=== PATIENT | female | born 1935 | race Caucasian/White ===

== ENCOUNTER → 2019-01-19 | Day surgery (SDC) | payer MEDICARE, OTHER ==
[2019-01-18 12:08] LABS: BASOPHILS # (AUTO) 0.1 (0.0-0.1); BASOPHILS % 0.8 % (0.0-1.0); EOSINOPHILS # (AUTO) 0.2 (0.0-0.4); EOSINOPHILS % 1.5 % (0.0-6.0); HEMATOCRIT 37.2 % (34.2-44.1); HEMOGLOBIN 11.6 g/dL (12.0-16.0); LYMPHOCYTES % 19.2 % (18.0-39.1); MEAN CORPUSCULAR HEMOGLOBIN 28.7 pg (28-32); MEAN CORPUSCULAR HGB CONC 31.2 g/dL (31-35); MEAN CORPUSCULAR VOLUME 92.1 fL (81-99); MONOCYTES # (AUTO) 0.6 (0.2-0.8); MONOCYTES % 5.9 % (4.4-11.3); NEUTROPHILS # (AUTO) 7.4 (2.1-6.9); NEUTROPHILS % 71.9 % (38.7-80.0); PLATELET COUNT 193 x10e3/uL (140-360); RED BLOOD COUNT 4.04 x10e6/uL (3.6-5.1); RED CELL DISTRIBUTION WIDTH 13.2 % (11.7-14.4)
[2019-01-18 12:26] LABS: ANION GAP 10.8 mmol/L (8-16); CALCIUM 9.2 mg/dL (8.4-10.2); CREATININE, SERUM 0.97 mg/dL (0.57-1.11); POTASSIUM 3.8 mmol/L (3.5-5.1)
--- NOTE | 2019-01-18 12:41 | Diagnostic Imaging Report ---
EXAMINATION: CHEST 2 VIEWS INDICATION: None. COMPARISON: None FINDINGS: TUBES and LINES: None. LUNGS: No evidence of pneumonia or pulmonary edema. High density nodular opacities in the left lower medial hemithorax may represent calcified granulomas or overlying costochondral junctions. PLEURA: No pleural effusion or pneumothorax. HEART AND MEDIASTINUM: The cardiac silhouette is unremarkable. Prominent central pulmonary arteries. Atherosclerotic calcifications of the aortic arch. There is eventration of the right hemidiaphragm. BONES AND SOFT TISSUES: No acute osseous abnormality. UPPER ABDOMEN: No free air under the diaphragm. IMPRESSION: No acute radiographic abnormality. Prominent central pulmonary arteries, which may reflect pulmonary arterial hypertension. Signed by: Dr. Ciera Retana MD on 01/18/2019 12:38 PM
[~2019-01-19] MED LIST: ATORVASTATIN CA10 MG PO; BACITRACIN 50,000 UNIT VIAL ONE; BUPIVACAINE HCL 0.5% INJ 30 ML VIAL INJ ONE; CEFAZOLIN SOD 1 GM/NS 50ML 50 ML IV ONE; CLOPIDOGREL75 MG PO; DICLOFENAC SODI75 MG; FENTANYL CITRATE/PF 100MCG/2 ML INJ ONE; HYZAAR 100-12.1 EACH; LIDOCAINE HCL 2% LOCAL INJ 5 ML SDV VIAL INJ ONE; METOPROLOL; METOPROLOL SUCC50 MG PO; MUPIROCIN 2% OINT 22 GM TUBE ONE; NIFEDIPINE10 MG PO; ONDANSETRON HCL INJ 2MG/ML 2ML 2 MG/ML VIAL ONE; PANTOPRAZOLE SO20 MG; PANTOPRAZOLE SO20 MG PO; PHENYLEPHRINE HCL 1% 10 MG/ML VIAL ONE; PROPOFOL IV EMULSION 10 MG/ML 20 ML VIAL ONE; SEVOFLURANE INHAL SOLN 250 ML PEN BTL ONE; VENTOLIN HFA18 GM
--- OUTSIDE RECORDS SUMMARY | 2019-01-19 05:37 | XMS REPORT | Clinical Summary ---
Author Author [facility] [employer] [employer] Address Unknown Phone Unavailable Care Team Providers Care Drier Feeder Name Role Phone Anay Fox PCP Allergies Not on File Medications Not on file Active Problems Not on file Social History Date Tobacco Use Types Packs/Day Years Used Never Assessed Sex Assigned at Date Recorded Not on file Industry Job Start Date Occupation Not on file Not on file Not on file Travel End Travel History Travel Start No recent travel history available. Last Filed Vital Signs Not on file Plan of Treatment Health Maintenance Due Date Last Done Comments SHINGLES VACCINES (#1) 1986 65+ PNEUMOCOCCAL VACCINE 2001 (1 of 2 - PCV13) PNEUMOCOCCAL 2001 POLYSACCHARIDE VACCINE AGE 65 AND OVER INFLUENZA VACCINE 06/01/2018 Results Not on fileafter 01/18/2018 Insurance Payer Benefit Subscriber ID Type Phone Address Plan / Group [employer] UNITED xxxxxxxxx [employer] MEDICARE MEDICARE xxxxxxxxxx Medicare [place] PART A AND B Advance Directives Patient has advance care planning documents on file. For more information, juan e contact: Heriberto Lozada [address] [place] [address]
--- OUTSIDE RECORDS SUMMARY | 2019-01-19 05:39 | XMS REPORT | Summary of Care ---
Author Author [facility] Organization [facility] Address Unknown Phone Unavailable Encounter HQ Enriquer_darling(FIN) [id number] Date(s): 04/21/17 - 04/21/17 [facility] [address] [place] [address]- Discharge Disposition: Home or Self Care Attending Physician: Brea Doherty MD Referring Physician: Brea Doherty MD Vital Signs No data available for this section Problem List Condition Effective Dates Status Health Status Informant Abscess right middle Resolved finger(Confirmed) Acid Active reflux(Confirmed) Anxiety(Confirmed) Active Arthritis(Confirmed) Active GI Resolved bleeding(Confirmed) Hypertension(Confirm Active ed) Irregular heart Resolved beat(Confirmed) Knee Active replacement(Confirme d) Pneumonia(Confirmed) Resolved Raynaud Active disease(Confirmed) Rectal Active bleeding(Confirmed) Allergies, Adverse Reactions, Alerts Substance Reaction Severity Status sulfa drugs Active Medications No data available for this section Results No data available for this section Immunizations Given and Recorded Vaccine Date Status Refusal Reason Hx influenza vaccine-unspecified 08/01/13 Given Hx pneumococcal vaccine 12/29/11 Given Procedures Procedure Date Related Diagnosis Body Site Biopsy of lymph node Cataract surgery Hysterectomy Incision AND drainage Knee replacement Social History Social History Type Response Substance Abuse Use: None. Alcohol Never Smoking Status Never smoker; Type: Cigars; Exposure to Tobacco Smoke None; Cigarette Smoking Last 365 Days No; Reg Smoking Cessation Counseling No Assessment and Plan No data available for this section
--- OUTSIDE RECORDS SUMMARY | 2019-01-19 05:39 | XMS REPORT | Summary of Care ---
Author Organization Unknown Address Unknown Phone Unavailable Encounter HQ Enriquer_darling(FIN) [id number] Date(s): 09/13/14 - 09/13/14 [facility] [address] Discharge Disposition: Home Physician Attending: Rudolph Waddell MD Physician Admitting: Rudolph Waddell MD Physician_Referring: Rudolph Waddell MD Reason for Visit 792.1 Vital Signs 1 2 3 Most recent to oldest [Reference Range]: 152.4 cm (09/10/14 10:45 AM) Height 98.0 DegF (09/10/14 10:55 AM) Temperature Oral [96.4-99.1 DegF] 170 mmHg *HI* (09/13/14 9:05 AM) 158 mmHg *HI* (09/13/14 8:50 AM) 168 mmHg *HI* (09/13/14 8:35 AM) Systolic Blood Pressure [90-140 mmHg] 70 mmHg (09/13/14 9:05 AM) 76 mmHg (09/13/14 8:50 AM) 71 mmHg (09/13/14 8:35 AM) Diastolic Blood Pressure [60-90 mmHg] 18 BRMIN (09/13/14 9:05 AM) 18 BRMIN (09/13/14 8:50 AM) 17 BRMIN (09/13/14 8:35 AM) Respiratory Rate [14-20 BRMIN] 79 bpm (09/13/14 7:56 AM) 69 bpm (09/10/14 10:55 AM) Peripheral Pulse Rate [60-100 bpm] 75.909 kg (09/10/14 10:45 AM) Weight 32.68 m2 (09/10/14 10:45 AM) Body Mass Index Problem List Condition Effective Dates Status Health Status Informant Abscess right middle Resolved finger(Confirmed) Acid Active reflux(Confirmed) Anxiety(Confirmed) Active Arthritis(Confirmed) Active Cataract(Confirmed) Resolved GI Resolved bleeding(Confirmed) Hypertension(Confirm Active ed) Knee Active replacement(Confirme d) Pneumonia(Confirmed) Resolved Raynaud Active disease(Confirmed) Rectal Active bleeding(Confirmed) Allergies, Adverse Reactions, Alerts Substance Reaction Severity Status sulfa drugs Active Medications Lumigan 0.01% ophthalmic solution 1 drp, BOTH EYES, Bedtime, 0 Refill(s) Start Date: 09/10/14 Status: Ordered metoprolol 25 mg oral tablet, extended release 25 mg, PO, Daily, # 30 tab, 0 Refill(s) Start Date: 09/10/14 Stop Date: 10/10/14 Status: Ordered Protonix 40 mg oral enteric coated tablet 40 mg=1 tab, PO, Daily, # 30 tab, 0 Refill(s) Start Date: 09/10/14 Status: Ordered Sodium Chloride 0.9% (Bolus) IV 500 mL, Route: IV, ONCE, Dosing Weight 75.909 kg, Start date: 09/13/14 7:53:00, Stop date: 09/13/14 7:53:00, Bolus Start Date: 09/13/14 Stop Date: 09/13/14 Status: Discontinued Results ELECTROLYTES Most recent to 1 oldest [Reference Range]: Sodium Lvl [135-145 139 mEq/L mEq/L] (09/10/14 11:30 AM) Potassium Lvl 3.9 mEq/L [3.5-5.1 mEq/L] (09/10/14 11:30 AM) Chloride Lvl [95-109 105 mEq/L mEq/L] (09/10/14 11:30 AM) CO2 [24-32 mEq/L] 27 mEq/L (09/10/14 11:30 AM) AGAP [10.0-20.0 10.9 mEq/L mEq/L] (09/10/14 11:30 AM) HEMATOLOGY Most recent to 1 oldest [Reference Range]: Hgb [12.0-16.0 g/dL] 11.9 g/dL *LOW* (09/10/14 11:30 AM) Hct [36.0-48.0 %] 38.4 % (09/10/14 11:30 AM) Medications Administered During Your Visit No data available for this section Immunizations Vaccine Date Refusal Reason Hx influenza vaccine-unspecified 08/01/13 Hx pneumococcal vaccine 12/29/11 Procedures Procedure Type Body Site Date of Procedure Related Diagnosis Biopsy of lymph node Social History Social History Type Response Smoking Status Never smoker, Exposure to Tobacco Smoke None, Cigarette Smoking Last 365 Days No, Reg Smoking Cessation Counseling No
--- OUTSIDE RECORDS SUMMARY | 2019-01-19 05:39 | XMS REPORT | Summary of Care ---
Author Author [facility] Organization [facility] Address Unknown Phone Unavailable Encounter HQ Rebel(JEWELS) [id number] Date(s): 06/13/18 - 06/15/18 [facility] [address] [place] [address]- [phone] Encounter Diagnosis Weakness (Final) - Cerebral infarction, unspecified (Final) - 06/24/18 Essential (primary) hypertension (Final) - Gastro-esophageal reflux disease with esophagitis (Final) - Anxiety disorder, unspecified (Final) - Unspecified osteoarthritis, unspecified site (Final) - Raynaud's syndrome without gangrene (Final) - CR(E)ST syndrome (Final) - Hypothyroidism, unspecified (Final) - Hyperlipidemia, unspecified (Final) - Radiculopathy, lumbar region (Final) - Type 2 diabetes mellitus without complications (Final) - Coma scale, best motor response, obeys commands, at arrival to emergency departm ent (Final) - Coma scale, eyes open, spontaneous, at arrival to emergency department (Final) - Coma scale, best verbal response, oriented, at arrival to emergency department (Final) - NIHSS score 2 (Final) - Discharge Disposition: Home or Self Care Attending Physician: Cedric Agustin DO Admitting Physician: Cedric Agustin DO Vital Signs 1 2 3 Most recent to oldest [Reference Range]: 152.4 cm (06/13/18 11:59 PM) 152.4 cm (06/13/18 7:15 PM) Height 97.8 DegF (06/15/18 12:00 PM) 97.6 DegF (06/15/18 7:30 AM) 97.7 DegF (06/15/18 4:00 AM) Temperature Oral [96.4-99.1 DegF] 161/84 mmHg *HI* (06/15/18 12:00 PM) 159/77 mmHg *HI* (06/15/18 7:30 AM) 158/76 mmHg *HI* (06/15/18 4:00 AM) Blood Pressure [90-140/60-90 mmHg] 17 BRMIN (06/15/18 7:30 AM) 17 BRMIN (06/15/18 4:00 AM) 17 BRMIN (06/15/18 12:00 AM) Respiratory Rate [14-20 BRMIN] 67 bpm (06/15/18 12:00 PM) 59 bpm *LOW* (06/15/18 7:30 AM) 67 bpm (06/15/18 4:00 AM) Peripheral Pulse Rate [60-100 bpm] 69.091 kg (06/13/18 11:59 PM) 69.091 kg (06/13/18 7:15 PM) Weight 29.75 m2 (06/13/18 11:59 PM) 29.75 m2 (06/13/18 7:15 PM) Body Mass Index Problem List Condition Effective Dates Status Health Status Informant Abscess right middle Resolved finger(Confirmed) Acid Active reflux(Confirmed) Anxiety(Confirmed) Active Arthritis(Confirmed) Active GI Resolved bleeding(Confirmed) Hypertension(Confirm Active ed) Irregular heart Resolved beat(Confirmed) Knee Active replacement(Confirme d) Pneumonia(Confirmed) Resolved Raynaud Active disease(Confirmed) Rectal Active bleeding(Confirmed) Allergies, Adverse Reactions, Alerts Substance Reaction Severity Status sulfa drugs Active Medications acetaminophen 650 mg, 2 tab, Route: PO, Drug form: TAB, Q4H, Dosing Weight 69.091, kg, PRN Mellissa n 1-3/Temp > 100.4 F, Start date: 06/13/18 22:57:00 CDT, Duration: 30 day, Stop date: 07/13/18 22:56:00 CDT Notes: Do not exceed 4 gm/day. (Same as: Tylenol) Start Date: 06/13/18 Stop Date: 06/15/18 Status: Discontinued Arthrotec 75 mg-200 mcg oral tablet 1 tab, Route: PO, Drug Form: TAB, Dosing Weight 69.091, kg, Bedtime, Start date: 06/14/18 21:00:00 CDT, Duration: 30 day, Stop date: 07/13/18 21:00:00 CDT Start Date: 06/14/18 Stop Date: 06/14/18 Status: Deleted aspirin 325 mg, 1 tab, Route: PO, Drug form: TAB, ONCE, Dosing Weight 69.091, kg, Priori ty: STAT, Start date: 06/13/18 21:36:00 CDT, Stop date: 06/13/18 21:36:00 CDT Notes: Take with food. Start Date: 06/13/18 Stop Date: 06/13/18 Status: Completed aspirin 81 mg, 1 tab, Route: PO, Drug form: ECTAB, Daily, Dosing Weight 69.091, kg, Star t date: 06/14/18 9:00:00 CDT, Duration: 30 day, Stop date: 07/13/18 9:00:00 CDT Notes: Do not crush or chew.(Same As: Ecotrin) Start Date: 06/14/18 Stop Date: 06/15/18 Status: Discontinued aspirin 81 mg tablet, enteric coated 81 mg=1 tab, PO, Daily, # 30 tab, 0 Refill(s), Pharmacy: [facility] [id number] Start Date: 06/14/18 Status: Ordered clobetasol topical 0.05% cream 1 appl, TOP, BID, # 15 gm, 0 Refill(s) Start Date: 06/14/18 Stop Date: 06/28/18 Status: Ordered diclofenac 75 mg, PO, 0 Refill(s) Start Date: 06/14/18 Status: Ordered diclofenac sodium extended release 75 mg, 1 tab, Route: PO, Drug form: ECTAB, Bedtime, Start date: 06/14/18 21:00:0 0 CDT, Duration: 30 day, Stop date: 07/13/18 21:00:00 CDT Notes: Do Not Crush or Chew. (Same as: Voltaren) Start Date: 06/14/18 Stop Date: 06/15/18 Status: Discontinued hydrochlorothiazide 12.5 mg, 1 tab, Route: PO, Drug form: TAB, Bedtime, Start date: 06/14/18 21:00:0 0 CDT, Duration: 30 day, Stop date: 07/13/18 21:00:00 CDT Notes: (Same as: Hydrodiuril). Give with food. Start Date: 06/14/18 Stop Date: 06/15/18 Status: Discontinued hydrochlorothiazide-losartan 12.5 mg-100 mg oral tablet 1 tab, Route: PO, Drug Form: TAB, Dosing Weight 69.091, kg, Bedtime, Start date: 06/14/18 21:00:00 CDT, Duration: 30 day, Stop date: 07/13/18 21:00:00 CDT Start Date: 06/14/18 Stop Date: 06/14/18 Status: Deleted Levothroid 75 microgram, 1 tab, Route: PO, Drug form: TAB, Daily, Dosing Weight 69.091, kg, Start date: 06/15/18 6:30:00 CDT, Duration: 30 day, Stop date: 07/14/18 6:30:00 CDT Notes: Take 1 hour before or 2 hours after meal; Enteral feeds may interefere wi th the absorption of this medication. (Same as:Synthroid, Levothroid) Start Date: 06/15/18 Stop Date: 06/15/18 Status: Discontinued Levothroid 75 mcg (0.075 mg) oral tablet 75 microgram=1 tab, PO, Daily, # 90 tab, 0 Refill(s) Start Date: 06/14/18 Status: Ordered Lipitor 10 mg oral tablet 10 mg=1 tab, PO, Bedtime, # 30 tab, 0 Refill(s), Pharmacy: [facility] [id number] Start Date: 06/14/18 Status: Ordered losartan 100 mg, 2 tab, Route: PO, Drug form: TAB, Bedtime, Start date: 06/14/18 21:00:00 CDT, Duration: 30 day, Stop date: 07/13/18 21:00:00 CDT Notes: (Same as: Cozaar) Start Date: 06/14/18 Stop Date: 06/15/18 Status: Discontinued metFORMIN 500 mg oral tablet, extended release 500 mg=1 tab, PO, Daily, 0 Refill(s) Start Date: 06/14/18 Status: Ordered metFORMIN 500 mg oral tablet, extended release 500 mg, 1 tab, Route: PO, Drug form: ERTAB, Daily, Dosing Weight 69.091, kg, Sta rt date: 06/15/18 9:00:00 CDT, Duration: 30 day, Stop date: 07/14/18 9:00:00 CDT Notes: (Same as: Glucophage XR)"Do Not Crush" Start Date: 06/15/18 Stop Date: 06/15/18 Status: Discontinued misoprostol 200 microgram, 2 tab, Route: PO, Drug form: TAB, Bedtime, Start date: 06/14/18 2 1:00:00 CDT, Duration: 30 day, Stop date: 07/13/18 21:00:00 CDT Notes: (Same as:Cytotec) Take with food Start Date: 06/14/18 Stop Date: 06/15/18 Status: Discontinued nystatin 500,000 unit, Route: TOP, TID, Dosing Weight 69.091, kg, PRN Rash, Start date: 0 06/14/18 9:49:00 CDT, Duration: 30 day, Stop date: 07/14/18 9:48:00 CDT Start Date: 06/14/18 Stop Date: 06/14/18 Status: Deleted nystatin topical 100,000 units/g cream 1 appl, Route: TOP, TID, Drug form: CRM, PRN Rash, Start date: 06/14/18 10:08:00 CDT, Duration: 30 day, Stop date: 07/14/18 10:07:00 CDT Notes: (Same as:Mycostatin, Nilstat) For external use only. Start Date: 06/14/18 Stop Date: 06/15/18 Status: Discontinued Protonix 40 mg, 1 tab, Route: PO, Drug form: ECTAB, Daily, Dosing Weight 69.091, kg, Star t date: 06/15/18 9:00:00 CDT, Duration: 30 day, Stop date: 07/14/18 9:00:00 CDT Notes: Tablet should not be chewed or crushed.(Same as: Protonix) Start Date: 06/15/18 Stop Date: 06/15/18 Status: Discontinued Saline Flush 0.9% 10 mL, Route: IVP, Drug Form: INJ, Dosing Weight 71.818, kg, PRN, PRN Line Flush , Start date: 06/13/18 19:18:00 CDT, Duration: 30 day, Stop date: 07/13/18 19:17 :00 CDT Notes: (Same as: BD Posiflush) Start Date: 06/13/18 Stop Date: 06/14/18 Status: Discontinued Toprol-XL 25 mg oral tablet, extended release 25 mg, 1 tab, Route: PO, Drug form: ERTAB, Daily, Start date: 06/15/18 9:00:00 C DT, Duration: 30 day, Stop date: 07/14/18 9:00:00 CDT Notes: (Same as: Toprol XL) Do Not Crush Start Date: 06/15/18 Stop Date: 06/15/18 Status: Discontinued tramadol 50 mg oral tablet 50 mg, 1 tab, Route: PO, Drug form: TAB, Q4H, Dosing Weight 69.091, kg, PRN Pain Score 1-5, Start date: 06/14/18 9:49:00 CDT, Duration: 30 day, Stop date: 07/14 9:48:00 CDT Notes: Not to exceed 400mg/day. (Same As: Ultram) Start Date: 06/14/18 Stop Date: 06/15/18 Status: Discontinued Results ELECTROLYTES Most recent to 1 2 oldest [Reference Range]: Sodium Lvl [135-145 142 mEq/L 142 mEq/L mEq/L] (06/14/18 3:01 AM) (06/13/18 8:04 PM) Potassium Lvl 3.1 mEq/L 3.3 mEq/L [3.5-5.1 mEq/L] *LOW* *LOW* (06/14/18 3:01 AM) (06/13/18 8:04 PM) Chloride Lvl [95-109 107 mEq/L 107 mEq/L mEq/L] (06/14/18 3:01 AM) (06/13/18 8:04 PM) CO2 [24-32 mEq/L] 26 mEq/L 28 mEq/L (06/14/18 3:01 AM) (06/13/18 8:04 PM) AGAP [10.0-20.0 12.1 mEq/L 10.3 mEq/L mEq/L] (06/14/18 3:01 AM) (06/13/18 8:04 PM) CHEM PANEL Most recent to 1 2 oldest [Reference Range]: Creatinine Lvl 0.83 mg/dL 1.07 mg/dL [0.50-1.40 mg/dL] (06/14/18 3:01 AM) (06/13/18 8:04 PM) eGFR 66 mL/min/1.73m2 1 49 mL/min/1.73m2 2 *NA* *NA* (06/14/18 3:01 AM) (06/13/18 8:04 PM) BUN [7-22 mg/dL] 16 mg/dL 16 mg/dL (06/14/18 3:01 AM) (06/13/18 8:04 PM) B/C Ratio [6-25] 15 (06/13/18 8:04 PM) Glucose Lvl [70-99 93 mg/dL 101 mg/dL mg/dL] (06/14/18 3:01 AM) *HI* (06/13/18 8:04 PM) Total Protein 6.8 g/dL [6.4-8.4 g/dL] (06/13/18 8:04 PM) Albumin Lvl [3.5-5.0 3.3 g/dL g/dL] *LOW* (06/13/18 8:04 PM) Globulin [2.7-4.2 3.5 g/dL g/dL] (06/13/18 8:04 PM) A/G Ratio [0.7-1.6] 0.9 (06/13/18 8:04 PM) Calcium Lvl 8.4 mg/dL 8.8 mg/dL [8.5-10.5 mg/dL] *LOW* (06/13/18 8:04 PM) (06/14/18 3:01 AM) ALT [0-65 unit/L] 28 unit/L (06/13/18 8:04 PM) AST [0-37 unit/L] 20 unit/L (06/13/18 8:04 PM) Alk Phos [39-136 124 unit/L unit/L] (06/13/18 8:04 PM) Bili Total [0.2-1.3 0.2 mg/dL mg/dL] (06/13/18 8:04 PM) 1Result Comment: The eGFR is calculated using the CKD-EPI formula. In most young, healthy individuals the eGFR will be >90 mL/min/1.73m2. The eGFR declines with age. An eGFR of 60-89 may be normal in some populations, particularly the elderly, for whom the CKD-EPI formula has not been extensively validated. Use of the eGFR is not recommended in the following populations: Individuals with unstable creatinine concentrations, including patients and those with serious co-morbid conditions. Patients with extremes in muscle mass or diet. The data above are obtained from the National Kidney Disease Education Program ( NKDEP) which additionally recommends that when the eGFR is used in patients with extremes of body mass index for purposes of drug dosing, the eGFR should be mul tiplied by the estimated BMI. 2Result Comment: The eGFR is calculated using the CKD-EPI formula. In most young, healthy individuals the eGFR will be >90 mL/min/1.73m2. The eGFR declines with age. An eGFR of 60-89 may be normal in some populations, particularly the elderly, for whom the CKD-EPI formula has not been extensively validated. Use of the eGFR is not recommended in the following populations: Individuals with unstable creatinine concentrations, including patients and those with serious co-morbid conditions. Patients with extremes in muscle mass or diet. The data above are obtained from the National Kidney Disease Education Program ( NKDEP) which additionally recommends that when the eGFR is used in patients with extremes of body mass index for purposes of drug dosing, the eGFR should be mul tiplied by the estimated BMI. CARDIAC ENZYMES Most recent to 2 oldest [Reference Range]: Total CK [12-191 96 unit/L unit/L] (06/13/18 8:04 PM) Troponin-I <0.02 ng/mL [0.00-0.40 ng/mL] (06/13/18 8:04 PM) LIPIDS Most recent to 1 2 oldest [Reference Range]: CHD Risk [3.90-5.80] 2.47 *LOW* (06/14/18 6:20 PM) Chol [<=199 mg/dL] 111 mg/dL (06/14/18 6:20 PM) Trig [<=149 mg/dL] 130 mg/dL (06/14/18 6:20 PM) HDL [>=61 mg/dL] 45 mg/dL *LOW* (06/14/18 6:20 PM) LDL (Calculated) 40 mg/dL [<=99 mg/dL] (06/14/18 6:20 PM) VLDL 26 *NA* (06/14/18 6:20 PM) URINE AND STOOL Most recent to 1 2 oldest [Reference Range]: UA Turbidity [Clear] Clear (06/13/18 9:02 PM) UA Color Ltyellow *NA* (06/13/18 9:02 PM) UA pH [5.0-8.0] 6.0 (06/13/18 9:02 PM) UA Spec Grav 1.009 [<=1.030] (06/13/18 9:02 PM) UA Glucose [Negative Negative mg/dL mg/dL] *NA* (06/13/18 9:02 PM) UA Blood [Negative] Small *ABN* (06/13/18 9:02 PM) UA Ketones [Negative Negative mg/dL mg/dL] *NA* (06/13/18 9:02 PM) UA Protein [Negative Negative mg/dL mg/dL] (06/13/18 9:02 PM) UA Urobilinogen <=1.0 mg/dL [0.1-1.0 mg/dL] *NA* (06/13/18 9:02 PM) UA Bili [Negative] Negative *NA* (06/13/18 9:02 PM) UA Leuk Est Trace [Negative] *ABN* (06/13/18 9:02 PM) UA Nitrite Negative [Negative] (06/13/18 9:02 PM) UA WBC [0-5 /HPF] 2 /HPF (06/13/18 9:02 PM) UA RBC [0-2 /HPF] 1 /HPF (06/13/18 9:02 PM) UA Bacteria [None Occasional /HPF Seen /HPF] *NA* (06/13/18 9:02 PM) UA Sq Epi None Seen *NA* (06/13/18 9:02 PM) HEMATOLOGY Most recent to 1 2 oldest [Reference Range]: WBC [3.7-10.4 K/CMM] 7.8 K/CMM 7.9 K/CMM (06/14/18 3:01 AM) (06/13/18 8:04 PM) RBC [4.20-5.40 3.43 M/CMM 3.81 M/CMM M/CMM] *LOW* *LOW* (06/14/18 3:01 AM) (06/13/18 8:04 PM) Hgb [12.0-16.0 g/dL] 10.1 g/dL 11.6 g/dL *LOW* *LOW* (06/14/18 3:01 AM) (06/13/18 8:04 PM) Hct [36.0-48.0 %] 30.4 % 34.2 % *LOW* *LOW* (06/14/18 3:01 AM) (06/13/18 8:04 PM) MCV [80.0-98.0 fL] 88.6 fL 89.6 fL (06/14/18 3:01 AM) (06/13/18 8:04 PM) MCH [27.0-31.0 pg] 29.5 pg 30.4 pg (06/14/18 3:01 AM) (06/13/18 8:04 PM) MCHC [32.0-36.0 33.2 g/dL 33.9 g/dL g/dL] (06/14/18 3:01 AM) (06/13/18 8:04 PM) RDW [11.5-14.5 %] 13.4 % 13.6 % (06/14/18 3:01 AM) (06/13/18 8:04 PM) MPV [7.4-10.4 fL] 8.2 fL 7.9 fL (06/14/18 3:01 AM) (06/13/18 8:04 PM) Platelet [133-450 208 K/CMM 216 K/CMM K/CMM] (06/14/18 3:01 AM) (06/13/18 8:04 PM) Segs [45.0-75.0 %] 56.4 % 58.0 % (06/14/18 3:01 AM) (06/13/18 8:04 PM) Lymphocytes 31.8 % 30.0 % [20.0-40.0 %] (06/14/18 3:01 AM) (06/13/18 8:04 PM) Monocytes [2.0-12.0 7.9 % 8.2 % %] (06/14/18 3:01 AM) (06/13/18 8:04 PM) Eosinophils [0.0-4.0 3.4 % 3.1 % %] (06/14/18 3:01 AM) (06/13/18 8:04 PM) Basophils [0.0-1.0 0.5 % 0.7 % %] (06/14/18 3:01 AM) (06/13/18 8:04 PM) Neutrophils # 4.4 K/CMM 4.6 K/CMM [1.5-8.1 K/CMM] (06/14/18 3:01 AM) (06/13/18 8:04 PM) Lymphocytes # 2.5 K/CMM 2.4 K/CMM [1.0-5.5 K/CMM] (06/14/18 3:01 AM) (06/13/18 8:04 PM) Monocytes # [0.0-0.8 0.6 K/CMM 0.6 K/CMM K/CMM] (06/14/18 3:01 AM) (06/13/18 8:04 PM) Eosinophils # 0.3 K/CMM 0.2 K/CMM [0.0-0.5 K/CMM] (06/14/18 3:01 AM) (06/13/18 8:04 PM) Basophils # [0.0-0.2 0.1 K/CMM K/CMM] (06/13/18 8:04 PM) PT [12.0-14.7 14.5 seconds seconds] (06/13/18 8:04 PM) INR [0.85-1.17] 1.13 (06/13/18 8:04 PM) PTT [22.9-35.8 30.2 seconds seconds] (06/13/18 8:04 PM) Microbiology Reports TEST: Culture: Urine STATUS: Auth (Verified) BODY SITE: SOURCE: Urine, Clean Catch COLLECTED DATE/TIME: 06/13/18 9:02 PM FINAL REPORT <10,000 CFU/mL Skin Yoanna Immunizations Given and Recorded Vaccine Date Status Refusal Reason Hx influenza vaccine-unspecified 10/1/13 Given Hx pneumococcal vaccine 12/29/11 Given Procedures Procedure Date Related Diagnosis Body Site Status Biopsy of lymph node Completed Cataract surgery Completed Hysterectomy Completed Incision AND drainage Completed Knee replacement Completed Social History Social History Type Response Substance Abuse Use: None. Alcohol Never Smoking Status Never smoker; Type: Cigars; Exposure to Tobacco Smoke None; Cigarette Smoking Last 365 Days No; Reg Smoking Cessation Counseling No entered on: 06/13/18 Assessment and Plan Extracted from: Title: Neurology Progress Note Author: Carmen Sherwood MD Date: 06/15/18 Impression and Plan 1. 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 cardioembolic vs atheroembolic. 2. Accelerated hypertension 3. Hyperlipidemia 4. Lumbar radiculopathy 5. H/o CREST syndrome 6. Arthritis 7. H/o palpitations. Plan: Telemetry. Checked fasting lipid profile. increase Aspirin to 325mg daily. reviewed MRI of brain images. Check 2D echo. Pt will benefit from Holter monitoring - d/w the pt - pt is scheduled to see her relationship mgr on Wednesday. PT/OT. reviewed imaging study results. d/w the pt, nurse, primary team. Neurology clinic follow up in 1-2 weeks. Extracted from: Title: Neurology Consult Note Author: Carmen Sherwood MD Date: 06/14/18 Impression and Plan 1. Right hemibody numbness and dysarthria - rule out left subcortical infarct 2. Accelerated hypertension 3. Hyperlipidemia 4. Lumbar radiculopathy 5. H/o CREST syndrome 6. Arthritis Plan: Telemetry. Check fasting lipid profile. Continue with aspirin 81 mg daily. Pending MRI of brain without contrast. Check 2D echo. PT/OT. reviewed imaging study results. further recommendations based on MRI results. d/w the pt, nurse, primary team. Neurology to follow. Thank you very much for this opportunity to participate in the care of your patient.
--- OUTSIDE RECORDS SUMMARY | 2019-01-19 05:39 | XMS REPORT | Summary of Care ---
Author Organization Unknown Address Unknown Phone Unavailable Encounter [facility] [id number] Date(s): 10/20/14 - 10/20/[address] Discharge Diagnosis: Scalp laceration Discharge Diagnosis: Fall Discharge Disposition: Home Physician Attending: Gaston Wright MD Reason for Visit FALL Vital Signs 1 2 3 Most recent to oldest [Reference Range]: 152.4 cm (10/20/14 1:54 AM) Height 98.4 DegF (10/20/14 6:20 AM) 97.8 DegF (10/20/14 1:54 AM) Temperature Oral [96.4-99.1 DegF] 134 mmHg (10/20/14 6:20 AM) 159 mmHg *HI* (10/20/14 4:32 AM) 147 mmHg *HI* (10/20/14 3:24 AM) Systolic Blood Pressure [90-140 mmHg] 70 mmHg (10/20/14 6:20 AM) 68 mmHg (10/20/14 4:32 AM) 87 mmHg (10/20/14 3:24 AM) Diastolic Blood Pressure [60-90 mmHg] 18 BRMIN (10/20/14 6:20 AM) 20 BRMIN (10/20/14 4:32 AM) 13 BRMIN *LOW* (10/20/14 3:24 AM) Respiratory Rate [14-20 BRMIN] 88 bpm (10/20/14 1:54 AM) Peripheral Pulse Rate [60-100 bpm] 75 kg (10/20/14 1:54 AM) Weight 32.29 m2 (10/20/14 1:54 AM) Body Mass Index Problem List Condition Effective Dates Status Health Status Informant Abscess right middle Resolved finger(Confirmed) Acid Active reflux(Confirmed) Anxiety(Confirmed) Active Arthritis(Confirmed) Active Cataract(Confirmed) Resolved GI Resolved bleeding(Confirmed) Hypertension(Confirm Active ed) Irregular heart Resolved beat(Confirmed) Knee Active replacement(Confirme d) Pneumonia(Confirmed) Resolved Raynaud Active disease(Confirmed) Rectal Active bleeding(Confirmed) Allergies, Adverse Reactions, Alerts Substance Reaction Severity Status sulfa drugs Active Medications EPINEPHrine-lidocaine 1:100,000-1% injectable solution 10 mL, Route: SUB-Q, Drug Form: INJ, Dosing Weight 75, kg, ONCE, Start date: 5:02:00, Stop date: 10/20/14 5:02:00 Notes: (Same as: Xylocaine w/Epinephrine) Start Date: 10/20/14 Stop Date: 10/20/14 Status: Ordered morphine Sulfate 4 mg, 1 mL, Route: IVP, Drug form: INJ, ONCE, Dosing Weight 75, kg, Priority: ST AT, Start date: 10/20/14 2:25:00, Stop date: 10/20/14 2:25:00 Notes: (Same as:MORPhine Sulfate) Start Date: 10/20/14 Stop Date: 10/20/14 Status: Completed ondansetron 4 mg, 2 mL, Route: IVP, Drug form: INJ, ONCE, Dosing Weight 75, kg, Priority: ST AT, Start date: 10/20/14 2:25:00, Stop date: 10/20/14 2:25:00 Notes: (Same as: Zofran) Start Date: 10/20/14 Stop Date: 10/20/14 Status: Completed PlasmaLyte A PH-7.4 1,000 mL 1,000 mL, Rate: 1,000 ml/hr, Infuse over: 1 hr, Route: IV, Dosing Weight 75 kg, Total Volume: 1,000, Priority: STAT, Start date: 10/20/14 2:25:00, Duration: 1 d oses or times, Stop date: 10/20/14 3:24:00 Start Date: 10/20/14 Stop Date: 10/20/14 Status: Completed Saline Flush 0.9% 10 mL, Route: IVP, Drug Form: INJ, Dosing Weight 75, kg, PRN, PRN Line Flush, St art date: 10/20/14 2:25:00, Duration: 30 day, Stop date: 11/19/14 2:24:00 Notes: (Same as: BD Posiflush) Start Date: 10/20/14 Stop Date: 10/20/14 Status: Discontinued tramadol 50 mg oral tablet 50 mg=1 tab, PO, Q6H, Pain, # 10 tab, 0 Refill(s) Start Date: 10/20/14 Status: Ordered Visipaque 320mg/ml 94 mL, Route: IVP, Drug Form: SOLN, Dosing Weight 75, kg, ONCALL, STAT, Start da te: 10/20/14 2:26:00, Duration: 1 doses or times, Dose=2.2ml/kg, Max [id number] -- "To be infused by Radiology Staff ONLY" Special Instructions: Dose=2.2ml/kg, Max [id number]=[id number] -- "To be infused by Radiol ogy Staff ONLY" Notes: (Same as: Visipaque). Start Date: 10/20/14 Stop Date: 10/20/14 Status: Completed Visipaque 320mg/ml 100 mL, Route: IVP, Drug Form: SOLN, Dosing Weight 75, kg, ONCALL, STAT, Start d ate: 10/20/14 2:26:00, Duration: 1 doses or times, Dose=2.2ml/kg, Max [id number] l -- "To be infused by Radiology Staff ONLY" Special Instructions: Dose=2.2ml/kg, Max [id number]=[id number] -- "To be infused by Radiol ogy Staff ONLY" Notes: (Same as: Visipaque). Start Date: 10/20/14 Stop Date: 10/20/14 Status: Completed Results BLOOD BANK RESULTS Most recent to 1 oldest [Reference Range]: ABO/Rh A POS *Unknown* (10/20/14 2:32 AM) Antibody Scrn Negative (10/20/14 2:32 AM) ELECTROLYTES Most recent to 1 oldest [Reference Range]: Sodium Lvl [135-145 140 mEq/L mEq/L] (10/20/14 2:32 AM) Potassium Lvl 3.8 mEq/L [3.5-5.1 mEq/L] (10/20/14 2:32 AM) Chloride Lvl [95-109 103 mEq/L mEq/L] (10/20/14 2:32 AM) CO2 [24-32 mEq/L] 27 mEq/L (10/20/14 2:32 AM) AGAP [10.0-20.0 13.8 mEq/L mEq/L] (10/20/14 2:32 AM) CHEM PANEL Most recent to 1 oldest [Reference Range]: Creatinine Lvl 1.0 mg/dL [0.5-1.4 mg/dL] (10/20/14 2:32 AM) eGFR 54 mL/min/1.73m2 1 *NA* (10/20/14 2:32 AM) BUN [7-22 mg/dL] 15 mg/dL (10/20/14 2:32 AM) Glucose Lvl [70-99 138 mg/dL 2 mg/dL] *HI* (10/20/14 2:32 AM) Calcium Lvl 9.0 mg/dL [8.5-10.5 mg/dL] (10/20/14 2:32 AM) Phosphorus [2.5-4.5 3.0 mg/dL mg/dL] (10/20/14 2:32 AM) Magnesium Lvl 1.8 mg/dL [1.8-2.4 mg/dL] (10/20/14 2:32 AM) Lactic Acid WB 1.5 mmol/L [0.5-2.2 mmol/L] (10/20/14 2:32 AM) 1Result Comment: The eGFR is calculated using [...] be mul tiplied by the estimated BMI. 2Interpretive Data: Adult reference range values reflect the clinical guidelines of the [employer]. TOXICOLOGY Most recent to 1 oldest [Reference Range]: Etoh (%) <.003 % 3 *NA* (10/20/14 2:32 AM) Ethanol Lvl <3 mg/dL 4 *NA* (10/20/14 2:32 AM) 3Interpretive Data: Ethanol testing results should be used for medical purposes only. Negative Range: <0.003% Toxic Range: >0.25% 4Interpretive Data: Negative Range: <3 mg/dL Toxic Range: >250 mg/dL HEMATOLOGY Most recent to 1 oldest [Reference Range]: WBC [3.7-10.4 K/CMM] 14.1 K/CMM *HI* (10/20/14 2:32 AM) RBC [4.20-5.40 4.06 M/CMM M/CMM] *LOW* (10/20/14 2:32 AM) Hgb [12.0-16.0 g/dL] 11.7 g/dL *LOW* (10/20/14 2:32 AM) Hct [36.0-48.0 %] 35.8 % *LOW* (10/20/14 2:32 AM) MCV [80.0-98.0 fL] 88.0 fL (10/20/14 2:32 AM) MCH [27.0-31.0 pg] 28.7 pg (10/20/14 2:32 AM) MCHC [32.0-36.0 32.6 g/dL g/dL] (10/20/14 2:32 AM) RDW [11.5-14.5 %] 14.0 % (10/20/14 2:32 AM) Platelet [133-450 207 K/CMM K/CMM] (10/20/14 2:32 AM) MPV [7.4-10.4 fL] 8.2 fL (10/20/14 2:32 AM) Segs [45.0-75.0 %] 74.0 % (10/20/14 2:32 AM) Lymphocytes 16.3 % [20.0-40.0 %] *LOW* (10/20/14 2:32 AM) Monocytes [2.0-12.0 5.9 % %] (10/20/14 2:32 AM) Eosinophils [0.0-4.0 3.8 % %] (10/20/14 2:32 AM) Basophils [0.0-1.0 0.0 % %] (10/20/14 2:32 AM) Segs-Bands # 10.5 K/CMM [1.5-8.1 K/CMM] *HI* (10/20/14 2:32 AM) Lymphocytes # 2.3 K/CMM [1.0-5.5 K/CMM] (10/20/14 2:32 AM) Monocytes # [0.0-0.8 0.8 K/CMM K/CMM] (10/20/14 2:32 AM) Eosinophils # 0.5 K/CMM [0.0-0.5 K/CMM] (10/20/14 2:32 AM) Basophils # [0.0-0.2 0.0 K/CMM K/CMM] (10/20/14 2:32 AM) Rapid TEG Sample Citrated Whole Blood Type *NA* (10/20/14 2:32 AM) ACT (TEG) [86-118 128 seconds seconds] *HI* (10/20/14 2:32 AM) Split Point 0.7 minutes *NA* (10/20/14 2:32 AM) R-time [0.4-0.7 0.8 minutes minutes] *HI* (10/20/14 2:32 AM) K-time [0.6-2.3 1.0 minutes minutes] (10/20/14 2:32 AM) Angle [64-80 76 degrees degrees] (10/20/14 2:32 AM) Max Amp [52-71 mm] 70 mm (10/20/14 2:32 AM) G-value [5.0-11.6 K 11.4 K d/sc d/sc] (10/20/14 2:32 AM) Estimated % Lysis 1.3 % [0.0-7.5 %] (10/20/14 2:32 AM) Medications Administered During Your Visit No data available for this section Immunizations Vaccine Date Refusal Reason Hx influenza vaccine-unspecified 08/01/13 Hx pneumococcal vaccine 12/29/11 Social History Social History Type Response Smoking Status Never smoker, Exposure to Tobacco Smoke None, Cigarette Smoking Last 365 Days No, Reg Smoking Cessation Counseling No
--- OUTSIDE RECORDS SUMMARY | 2019-01-19 05:39 | XMS REPORT | Summary of Care ---
Author Organization Unknown Address Unknown Phone Unavailable Encounter Dates Location Diagnoses Discharge Providers [facility] [id number] Bina [address] , [facility] Reason for Visit THROMBOCYTOPENIA Vital Signs 1 2 3 Most recent to oldest [Reference Range]: 152.4 cm (01/09/2014 23:06:00 [facility]) Height 98.1 DegF (01/12/2014 12:45:00 [facility]) 98.0 DegF (01/12/2014 09:38:00 [facility]) 97.7 DegF (01/12/2014 07:59:00 [facility]) Temperature Oral [96.4-99.1 DegF] 168 mmHg *HI* (01/12/2014 14:11:00 [facility]) 165 mmHg *HI* (01/12/2014 13:41:00 [facility]) 151 mmHg *HI* (01/12/2014 13:12:00 [facility]) Systolic Blood Pressure [90-140 mmHg] 94 mmHg *HI* (01/12/2014 14:11:00 [facility]) 82 mmHg (01/12/2014 13:41:00 [facility]) 76 mmHg (01/12/2014 13:12:00 [facility]) Diastolic Blood Pressure [60-90 mmHg] 17 BRMIN (01/12/2014 12:45:00 [facility]) 17 BRMIN (01/12/2014 11:45:00 [facility]) 17 BRMIN (01/12/2014 11:30:00 [facility]) Respiratory Rate [14-20 BRMIN] 89 bpm (01/12/2014 14:11:00 [facility]) 83 bpm (01/12/2014 13:41:00 [facility]) 82 bpm (01/12/2014 13:12:00 [facility]) Peripheral Pulse Rate [60-100 bpm] 75.909 kg (01/09/2014 23:06:00 [facility]) Weight 32.68 m2 (01/09/2014 23:06:00 [facility]) Body Mass Index Problem List Condition Effective Dates Status Health Status Informant Abscess right middle Active finger(Confirmed) Cataract(Confirmed) Active GI Active bleeding(Confirmed) Hypertension(Confirm Active ed) Knee Active replacement(Confirme d) Allergies, Adverse Reactions, Alerts Status Substance Reaction Severity Active sulfa drugs Medications Medication Instructions Start Date Stop Date Status acetaminophen 650 mg, 20.3 mL, Route: PO, Drug 01/10/2014 01/12/2014 Discontinued form: LIQ, Q4H, Dosing Weight 75.909, kg, PRN Pain 1-3/Temp > 100.4 F, Start date: 01/10/14 9:03:00, Duration: 30 day, Stop date: 02/09/14 9:02:00 Max zjmpvvenspyjz=3393kd/day (4 gm/day). (Same as: Tylenol) acetaminophen 650 mg, PO, Q4H, PRN fever, pain, 0 01/10/2014 Ordered Refill(s) PRN fever, pain acetaminophen 650 mg, 20.3 mL, Route: PO, Drug 01/10/2014 01/10/2014 Deleted form: LIQ, Q4H, Dosing Weight 75.909, kg, PRN Other -See Comment, Start date: 01/10/14 20:27:00, Duration: 30 day, Stop date: 02/09/14 20:26:00 Max mncussvxbohzy=9204at/day (4 gm/day). (Same as: Tylenol) acetaminophen 650 mg, 20.3 mL, Route: PO, Drug 01/10/2014 01/10/2014 Discontinued form: LIQ, Q4H, Dosing Weight 75.909, kg, Start date: 01/10/14 20:00:00, Duration: 30 day, Stop date: 02/09/14 16:00:00 Max dzzmxhzdrgkpw=7293rc/day (4 gm/day). (Same as: Tylenol) albuterol 0.042% 1.25 mg, 3 mL, Route: NEB, Drug 01/10/2014 01/12/2014 Discontinued inhalation solution form: SOLN, RQ6H, Dosing Weight 75.909, kg, Start date: 01/10/14 20:00:00, Duration: 30 day, Stop date: 02/09/14 14:00:00 SEE RT DOCUMENTATION (Same as: Proventil) albuterol 0.083% 2.49 mg=3 mL, NEB, Q6H, # 120 ea, 0 01/10/2014 Ordered inhalation solution Refill(s) amitriptyline 10 mg, 1 tab, Route: PO, Drug form: 01/10/2014 01/12/2014 Discontinued TAB, Bedtime, Dosing Weight 75.909, kg, Start date: 01/10/14 21:00:00, Duration: 30 day, Stop date: 02/08/14 21:00:00 (Same as: Elavil) bimatoprost 0.03% 1 drp, Route: OPTH, Bedtime, Drug 01/10/2014 01/12/2014 Discontinued ophthalmic solution form: SOLN, Start date: 01/10/14 21:00:00, Duration: 30 day, Stop date: 02/08/14 21:00:00 Carafate 1 g/10 mL 1 gm=10 mL, PO, QID-Before Meals, # 01/12/2014 Ordered oral suspension 1,200 mL, 0 Refill(s) Carafate 1 g/10 mL 1 gm, 10 mL, Route: PO, Drug form: 01/12/2014 01/12/2014 Canceled oral suspension SUSP, QID-Before Meals, Dosing Weight 75.909, kg, Start date: 01/12/14 16:30:00, Duration: 30 day, Stop date: 02/11/14 11:30:00 Enteral feeds may interfere with the absorption of this medication. Shake well. Take 1 hr before or 2 hrs after antacids, dairy pdt, minerals & meals. (Same As: Carafate) cefepime 1 g 1 gm, IV, Q12H, # 20 doses or 01/10/2014 01/10/2014 Deleted injection times, 0 Refill(s) Cozaar 100 mg, 2 tab, Route: PO, Drug 01/11/2014 01/12/2014 Discontinued form: TAB, Daily, Start date: 01/11/14 9:00:00, Duration: 30 day, Stop date: 02/09/14 9:00:00 (Same as: Cozaar) Diflucan 200 mg, 2 tab, Route: PO, Drug 01/12/2014 01/12/2014 Discontinued form: TAB, [id number], Dosing Weight 75.909, kg, Start date: 01/12/14 12:00:00, Duration: 5 day, Stop date: 01/16/14 12:00:00 (Same as: Diflucan) docusate 100 mg, 1 cap, Route: PO, Drug 01/10/2014 01/12/2014 Discontinued form: CAP, BID, Dosing Weight 75.909, kg, PRN Constipation, Start date: 01/10/14 9:03:00, Duration: 30 day, Stop date: 02/09/14 9:02:00 (Same as: Colace) (Do Not Crush) doxycycline 100 mg, 1 tab, Route: PO, Drug 01/10/2014 01/12/2014 Discontinued form: TAB, Q12H, Dosing Weight 75.909, kg, Start date: 01/10/14 21:17:00, Duration: 30 day, Stop date: 02/09/14 21:00:00 NO MILK/ANTACIDS/IRON Take 1 hour before or 2 hours after dairy products doxycycline 100 mg=1 tab, PO, Q12H, # 28 tab, 0 01/12/2014 01/26/2014 Ordered monohydrate 100 mg Refill(s) oral tablet hydrochlorothiazide 12.5 mg, 0.5 tab, Route: PO, Drug 01/11/2014 01/11/2014 Canceled 25 mg oral tablet form: TAB, Bedtime, Start date: 01/11/14 21:00:00, Duration: 30 day, Stop date: 02/09/14 21:00:00 (Same as: Hydrodiuril) With food. hydrochlorothiazide 12.5 mg, 0.5 tab, Route: PO, Drug 01/11/2014 01/11/2014 Discontinued 25 mg oral tablet form: TAB, Daily, Start date: 01/11/14 9:00:00, Duration: 30 day, Stop date: 02/09/14 21:00:00 (Same as: Hydrodiuril) With food. hydrochlorothiazide- 1 tab, Route: PO, Drug Form: TAB, 01/10/2014 01/10/2014 Deleted losartan 12.5 mg-100 Dosing Weight 75.909, kg, Bedtime, mg oral tablet Start date: 01/10/14 21:00:00, Duration: 30 day, Stop date: 02/08/14 21:00:00 ipratropium 0.02% 0.5 mg, 2.5 mL, Route: INHALATION, 01/10/2014 01/12/2014 Discontinued inhalation solution Drug form: SOLN, RQ6H, Dosing Weight 75.909, kg, Start date: 01/10/14 20:00:00, Duration: 30 day, Stop date: 02/09/14 14:00:00 SEE RT DOCUMENTATION(Same as:Atrovent) ipratropium 0.02% =1 vial, INHALATION, Q6H, 0 01/10/2014 Ordered inhalation solution Refill(s) K-Dur 20 40 mEq, 2 tab, Route: PO, Drug 01/10/2014 01/10/2014 Completed form: ERTAB, Q4H, Dosing Weight 75.909, kg, times 2 doses, Start date: 01/10/14 8:00:00, Duration: 2 doses or times, Stop date: 01/10/14 12:00:00 (Same as: K-Dur 20)"Do Not Crush" With food and full glass of water nystatin-triamcinolo 1 appl, TOP, BID, # 60 gm, 0 01/12/2014 Ordered ne topical ointment Refill(s) nystatin-triamcinolo 1 appl, Route: TOP, BID, Drug form: 01/11/2014 01/12/2014 Discontinued ne topical ointment OINT, Start date: 01/11/14 9:41:00, Stop date: 02/10/14 9:00:00 (nystatin-triamcinolone 289319 units/g-0.1% top OINT 60 gm ) Non-Formulary Item omeprazole 40 mg, Route: PO, Drug form: DRC, 01/11/2014 01/10/2014 Deleted Daily, Dosing Weight 75.909, kg, Start date: 01/11/14 9:00:00, Duration: 30 day, Stop date: 02/09/14 9:00:00 omeprazole 40 mg 40 mg=1 cap, PO, Daily, # 30 cap, 0 01/10/2014 01/12/2014 Discontinued oral delayed release Refill(s) capsule ondansetron 4 mg, 2 mL, Route: IVP, Drug form: 01/10/2014 01/12/2014 Discontinued INJ, Q8H, Dosing Weight 75.909, kg, PRN Nausea & Vomiting, Start date: 01/10/14 9:03:00, Duration: 30 day, Stop date: 02/09/14 9:02:00 (Same as: Zofran) pantoprazole 40 mg, 1 tab, Route: PO, Drug form: 01/11/2014 01/12/2014 Discontinued ECTAB, Before Dinner, Dosing Weight 75.909, kg, Start date: 01/11/14 16:30:00, Duration: 30 day, Stop date: 02/09/14 16:30:00 Tablet should not be chewed or crushed.(Same as: Protonix) pantoprazole 40 mg 40 mg=1 tab, PO, Daily, # 30 tab, 0 01/12/2014 Ordered oral enteric coated Refill(s) tablet potassium chloride 40 mEq, 2 tab, Route: PO, Drug 01/12/2014 01/12/2014 Completed 20 mEq oral tablet, form: ERTAB, ONCE, Dosing Weight extended release 75.909, kg, Start date: 01/12/14 0:46:00, Stop date: 01/12/14 0:46:00 (Same as: K-Dur 20)"Do Not Crush" With food and full glass of water potassium chloride 20 mEq=1 tab, PO, BID, # 60 tab, 0 01/12/2014 Ordered 20 mEq oral tablet, Refill(s) extended release pravastatin 20 mg, 1 tab, Route: PO, Drug form: 01/10/2014 01/12/2014 Discontinued TAB, Bedtime, Dosing Weight 75.909, kg, Start date: 01/10/14 21:00:00, Duration: 30 day, Stop date: 02/08/14 21:00:00 (Same as: Pravachol) Protonix 40 mg, Route: IVP, Drug form: INJ, 01/12/2014 01/12/2014 Canceled BID-Before Meals, Dosing Weight 75.909, kg, Start date: 01/12/14 16:30:00, Duration: 30 day, Stop date: 02/11/14 7:30:00 Restoril 30 mg, 2 cap, Route: PO, Drug form: 01/10/2014 01/12/2014 Discontinued CAP, Bedtime, PRN Sleep, Start date: 01/10/14 16:43:00, Duration: 30 day, Stop date: 02/09/14 16:42:00 (Same As: Restoril) Sodium Chloride 0.9% IV, 30 ml/hr, ONCALL, PRN Blood 01/11/2014 01/12/2014 Discontinued IV Transfusion, Start date: 01/11/14 13:17:00, Duration: 1, 250 ml Sodium Chloride 0.9% 1,000 mL, Rate: 25 ml/hr, Infuse 01/12/2014 01/12/2014 Discontinued IV 1,000 mL over: 40 hr, Route: IV, Dosing Weight 75.909 kg, Total Volume: 1,000, Start date: 01/12/14 9:36:00, Duration: 1 day, Stop date: 01/13/14 9:35:00 tramadol 50 mg oral 50 mg, 1 tab, Route: PO, Drug form: 01/10/2014 01/12/2014 Discontinued tablet TAB, Q4H, Dosing Weight 75.909, kg, PRN as needed for pain, Start date: 01/10/14 16:36:00, Duration: 30 day, Stop date: 02/09/14 16:35:00 Not to exceed 400mg/day. (Same As: Ultram) Tylenol 650 mg, 2 tab, Route: PO, Drug 01/10/2014 01/12/2014 Discontinued form: TAB, Q4H, Dosing Weight 75.909, kg, PRN Fever, Start date: 01/10/14 20:25:00, Duration: 30 day, Stop date: 02/09/14 20:24:00 Do not exceed 4 gm/day. (Same as: Tylenol) vancomycin 750 mg IV, Q12H, 0 Refill(s) 01/10/2014 01/12/2014 Discontinued intravenous injection Xalatan ophthalmic 1 drp, Route: OPTH, Bedtime, Drug 01/10/2014 01/12/2014 Discontinued 0.005% solution form: SOLN, Start date: 01/10/14 21:00:00, Duration: 30 day, Stop date: 02/08/14 21:00:00 Keep refrigerated. (Same as:Xalatan) Xalatan ophthalmic 1 drp, OPTH, Bedtime, # 3 ml, 0 01/10/2014 Ordered 0.005% solution Refill(s) zolpidem 10 mg, Route: PO, Drug form: TAB, 01/10/2014 01/10/2014 Deleted Bedtime, Dosing Weight 75.909, kg, Start date: 01/10/14 21:00:00, Duration: 30 day, Stop date: 02/08/14 21:00:00 Results BLOOD BANK RESULTS 1 2 3 Most recent to oldest [Reference Range]: A POS *Unknown* (01/11/2014 11:33:00 [facility] ABO/Rh Product available 1 (01/11/2014 11:16:00 [facility] Platelet product 1Result Comment: 01/11/2014 14:22 CAMILO called to [facility] ELECTROLYTES 1 2 3 Most recent to oldest [Reference Range]: 140 mEq/L (01/12/2014 04:00:00 [facility] 134 mEq/L *LOW* (01/10/2014 03:14:00 [facility]) Sodium Lvl [135-145 mEq/L] 3.6 mEq/L (01/12/2014 04:00:00 [facility] 3.3 mEq/L *LOW* (01/11/2014 23:57:00 [facility] 2.8 mEq/L 2 *CRIT* (01/10/2014 03:14:00 [facility]) Potassium Lvl [3.5-5.1 mEq/L] 107 mEq/L (01/12/2014 04:00:00 [facility] 100 mEq/L (01/10/2014 03:14:00 [facility] Chloride Lvl [95-109 mEq/L] 24 mEq/L (01/12/2014 04:00:00 [facility]) 27 mEq/L (01/10/2014 03:14:00 [facility]) CO2 [24-32 mEq/L] 12.6 mEq/L (01/12/2014 04:00:00 [facility]) 9.8 mEq/L *LOW* (01/10/2014 03:14:00 [facility]) AGAP [10.0-20.0 mEq/L] 2Result Comment: Critical Result(s) called to Dr. Webster at 01/10/2014 03:56 by MARY. Read back OK. CHEM PANEL 1 2 3 Most recent to oldest [Reference Range]: 1.0 mg/dL (01/12/2014 04:00:00 [facility]) 1.1 mg/dL (01/10/2014 03:14:00 [facility]) Creatinine Lvl [0.5-1.4 mg/dL] 54 mL/min/1.73m2 3 *NA* (01/12/2014 04:00:00 [facility]) 49 mL/min/1.73m2 4 *NA* (01/10/2014 03:14:00 [facility]) eGFR 16 mg/dL (01/12/2014 04:00:00 [facility]) 9 mg/dL (01/10/2014 03:14:00 [facility]) BUN [7-22 mg/dL] 8 (01/10/2014 03:14:00 [facility]) B/C Ratio [6-25] 92 mg/dL 5 (01/12/2014 04:00:00 [facility]) 105 mg/dL 6 *HI* (01/10/2014 03:14:00 [facility]) Glucose Lvl [70-99 mg/dL] 6.6 g/dL (01/10/2014 03:14:00 [facility]) Total Protein [6.4-8.4 g/dL] 3.1 g/dL *LOW* (01/10/2014 03:14:00 [facility]) Albumin Lvl [3.5-5.0 g/dL] 3.5 g/dL (01/10/2014 03:14:00 [facility]) Globulin [2.0-4.0 g/dL] 0.9 (01/10/2014 03:14:00 [facility]) A/G Ratio [0.7-1.6] 7.8 mg/dL *LOW* (01/12/2014 04:00:00 [facility]) 8.6 mg/dL (01/10/2014 03:14:00 [facility]) Calcium Lvl [8.5-10.5 mg/dL] 20 unit/L (01/10/2014 03:14:00 [facility]) ALT [0-65 unit/L] 13 unit/L (01/10/2014 03:14:00 [facility]) AST [0-37 unit/L] 90 unit/L (01/10/2014 03:14:00 [facility]) Alk Phos [39-136 unit/L] 0.3 mg/dL (01/10/2014 03:14:00 [facility]) Bili Total [0.2-1.3 mg/dL] 3Result Comment: The eGFR is calculated using the [...] be mul tiplied by the estimated BMI. 4Result Comment: The eGFR is calculated using the [...] be mul tiplied by the estimated BMI. 5Interpretive Data: Adult reference range values reflect the clinical guidelines of the [place] [employer]. 6Interpretive Data: Adult reference range values reflect the clinical guidelines of the [place] [employer]. CARDIAC ENZYMES 1 2 3 Most recent to oldest [Reference Range]: 25 pg/mL 7 (01/11/2014 11:33:00 [facility]) BNP [<=100 pg/mL] 7Interpretive Data: Elevated results are in line with increasing severity of congestive heart failure. Minor elevations between 100 and 300 may be seen with Myocardial Ischemia, Sodium retaining drugs, and compensated/treated heart failure. URINE AND STOOL 1 2 3 Most recent to oldest [Reference Range]: Clear (01/10/2014 04:30:36 [facility]) UA Turbidity [Clear] Ltyellow *NA* (01/10/2014 04:30:36 [facility]) UA Color 6.0 (01/10/2014 04:30:36 [facility]) UA pH [5.0-8.0] 1.008 (01/10/2014 04:30:36 [facility]) UA Spec Grav [<=1.030] Negative mg/dL *NA* (01/10/2014 04:30:36 [facility]) UA Glucose [Negative mg/dL] Small *ABN* (01/10/2014 04:30:36 [facility]) UA Blood [Negative] Negative mg/dL *NA* (01/10/2014 04:30:36 [facility]) UA Ketones [Negative mg/dL] Negative mg/dL (01/10/2014 04:30:36 [facility]) UA Protein [Negative mg/dL] <=1.0 mg/dL *NA* (01/10/2014 04:30:36 [facility]) UA Urobilinogen [0.1-1.0 mg/dL] Negative *NA* (01/10/2014 04:30:36 [facility]) UA Bili [Negative] Negative (01/10/2014 04:30:36 [facility]) UA Leuk Est [Negative] Negative (01/10/2014 04:30:36 [facility]) UA Nitrite [Negative] 3 /HPF (01/10/2014 04:30:36 [facility]) UA WBC [0-5 /HPF] 7 /HPF *HI* (01/10/2014 04:30:36 [facility]) UA RBC [0-2 /HPF] Occasional /LPF *NA* (01/10/2014 04:30:36 [facility] UA Sq Epi [Few /LPF] Few /LPF *NA* (01/10/2014 04:30:36 [facility]) UA Mucus [None Seen /LPF] HEMATOLOGY 1 2 3 Most recent to oldest [Reference Range]: 7.4 K/CMM (01/12/2014 04:00:00 [facility]) 7.2 K/CMM (01/11/2014 05:39:00 [facility]) 8.2 K/CMM (01/10/2014 10:13:00 [facility]) WBC [3.7-10.4 K/CMM] 3.27 M/CMM *LOW* (01/12/2014 04:00:00 [facility]) 3.41 M/CMM *LOW* (01/11/2014 05:39:00 [facility]) 3.66 M/CMM *LOW* (01/10/2014 10:13:00 [facility]) RBC [4.20-5.40 M/CMM] 10.1 g/dL *LOW* (01/12/2014 13:15:00 [facility]) 9.6 g/dL *LOW* (01/12/2014 04:00:00 [facility]) 9.9 g/dL *LOW* (01/11/2014 05:39:00 [facility]) Hgb [12.0-16.0 g/dL] 30.7 % *LOW* (01/12/2014 13:15:00 [facility]) 28.4 % *LOW* (01/12/2014 04:00:00 [facility]) 29.7 % *LOW* (01/11/2014 05:39:00 [facility] Hct [36.0-48.0 %] 86.9 fL (01/12/2014 04:00:00 [facility]) 87.0 fL (01/11/2014 05:39:00 [facility]) 85.8 fL (01/10/2014 10:13:00 [facility]) MCV [81.0-99.0 fL] 29.5 pg (01/12/2014 04:00:00 [facility]) 29.0 pg (01/11/2014 05:39:00 [facility]) 29.1 pg (01/10/2014 10:13:00 [facility]) MCH [27.0-31.0 pg] 33.9 g/dL (01/12/2014 04:00:00 [facility]) 33.3 g/dL (01/11/2014 05:39:00 [facility]) 33.9 g/dL (01/10/2014 10:13:00 [facility]) MCHC [32.0-36.0 g/dL] 12.9 % (01/12/2014 04:00:00 [facility]) 13.0 % (01/11/2014 05:39:00 [facility]) 13.1 % (01/10/2014 10:13:00 [facility] RDW [11.5-14.5 %] 100 K/CMM *LOW* (01/12/2014 04:00:00 [facility]) 47 K/CMM *LOW* (01/11/2014 05:39:00 [facility]) 38 K/CMM *LOW* (01/10/2014 10:13:00 [facility]) Platelet [133-450 K/CMM] 8.7 fL (01/12/2014 04:00:00 [facility]) 9.5 fL (01/11/2014 05:39:00 [facility]) 9.1 fL (01/10/2014 10:13:00 [facility]) MPV [7.4-10.4 fL] 58.3 % (01/12/2014 04:00:00 [facility]) 58.9 % (01/11/2014 05:39:00 [facility]) 70.3 % (01/10/2014 10:13:00 [facility]) Segs [45.0-75.0 %] 27.8 % (01/12/2014 04:00:00 [facility]) 25.1 % (01/11/2014 05:39:00 [facility] 15.8 % *LOW* (01/10/2014 10:13:00 [facility]) Lymphocytes [20.0-40.0 %] 9.8 % (01/12/2014 04:00:00 [facility] 10.5 % (01/11/2014 05:39:00 [facility]) 9.0 % (01/10/2014 10:13:00 [facility]) Monocytes [2.0-12.0 %] 3.9 % (01/12/2014 04:00:00 [facility]) 4.9 % *HI* (01/11/2014 05:39:00 [facility]) 4.8 % *HI* (01/10/2014 10:13:00 [facility]) Eosinophils [0.0-4.0 %] 0.2 % (01/12/2014 04:00:00 [facility]) 0.6 % (01/11/2014 05:39:00 [facility]) 0.1 % (01/10/2014 10:13:00 [facility]) Basophils [0.0-1.0 %] 4.3 K/CMM (01/12/2014 04:00:00 [facility]) 4.3 K/CMM (01/11/2014 05:39:00 [facility]) 5.8 K/CMM (01/10/2014 10:13:00 [facility]) Segs-Bands # [1.5-8.1 K/CMM] 2.0 K/CMM (01/12/2014 04:00:00 [facility]) 1.8 K/CMM (01/11/2014 05:39:00 [facility]) 1.3 K/CMM (01/10/2014 10:13:00 [facility]) Lymphocytes # [1.0-5.5 K/CMM] 0.7 K/CMM (01/12/2014 04:00:00 [facility]) 0.8 K/CMM (01/11/2014 05:39:00 [facility]) 0.7 K/CMM (01/10/2014 10:13:00 [facility]) Monocytes # [0.0-0.8 K/CMM] 0.3 K/CMM (01/12/2014 04:00:00 [facility]) 0.4 K/CMM (01/11/2014 05:39:00 [facility]) 0.4 K/CMM (01/10/2014 10:13:00 [facility]) Eosinophils # [0.0-0.5 K/CMM] 0.0 K/CMM (01/12/2014 04:00:00 [facility]) 0.0 K/CMM (01/11/2014 05:39:00 [facility]) 0.0 K/CMM (01/10/2014 10:13:00 [facility]) Basophils # [0.0-0.2 K/CMM] 13.9 seconds (01/10/2014 03:14:00 [facility]) PT [12.0-14.7 seconds] 1.08 8 (01/10/2014 03:14:00 [facility]) INR [0.85-1.17] 450 mg/dL (01/10/2014 03:14:00 [facility]) Fibrinogen Lvl [230-510 mg/dL] 1.54 ug/mL FEU 9 *NA* (01/10/2014 03:14:00 [facility]) D-Dimer 28.9 seconds 10 (01/10/2014 03:14:00 [facility]) PTT [22.9-35.8 seconds] 8Interpretive Data: RECOMMENDED RANGES FOR PROTIME INR: 2.0-3.0 for most medical and surgical thromboembolic states. 2.5-3.5 for artificial heart valves and recurrent embolism. INR SHOULD BE USED ONLY FOR PATIENTS ON STABLE ANTICOAGULANT THERAPY. 9Interpretive Data: In DIC, quantitative D-Dimer is generally greater than 0.66 ug/mL FEU. Values of quantitative D-Dimer less than 0.40 ug/mL FEU have been reported to be associated with a low probability of deep vein thrombosis/pulmonary embolism. This test alone should not be used to rule out DVT/PE. 10Interpretive Data: Heparin Therapeutic Range: 57 - 92 Seconds Medications Administered During Your Visit No data available for this section Immunizations Vaccine Date Refusal Reason Hx influenza vaccine-unspecified 08/01/2013 Hx pneumococcal vaccine 12/29/2011 Social History Social History Type Response Smoking Status Use: Never smoker. Tobacco smoke exposure: None. Did the Patient Smoke Cigarettes Anytime During the Last 365 Days? No. Cessation Counseling Provided? No. Assessment and Plan Extracted from: Title: Clinical Document Author: Shebib, Zaher Date: 01/12/2014 Ifectious Disease Progress Note [facility] Dr. Clau Hwang SUBJECTIVE Events reviewed. Met with the family/ OBJECTIVE Gen: alert, no acute distress, follow command HEENT: not pale, not icteric, normal cephalic, Neck: Supple, no jvd, CV: S1, S2, no murmurs Lung: clear bilateral course BS Abd: soft, bowel sound normal, no tenderness Ext: no edema Skin: no rash Neuro: no seizure, no local finding Vitals and Temp: VitalsTmp(F)[id number] 01/12 12:[id number]------ 01/12 11:30----[id number]--- 01/12 11:15----[id number]--- 01/12 11:05----[id number] 3.0L/m 01/12 09:[id number]--- 24 Hr Tmax: 98.4F (36.89c) at 01/11 23:46Vital Signs are the last 5 in the past 48 hours. Input/Output RecordInOutBal 03/1424hr Tot 150 0 150 03/1324hr Tot 1180 0 1180 Physical Exam Labs (Last four charted values) WBC 7.4(JAN 12)7.2(JAN 11)8.2(JAN 10)7.3(JAN 10) Hgb L 10.1(JAN 12)L 9.6(JAN 12)L 9.9(JAN 11)L 10.6(JAN 10) Hct L 30.7(JAN 12)L 28.4(JAN 12)L 29.7(JAN 11)L 31.4(JAN 10) Plt L 100(JAN 12)L 47(JAN 11)L 38(JAN 10)L 32(JAN 10) Na 140(JAN 12)L 134(JAN 10) K 3.6(JAN 12)L 3.3(JAN 11)C 2.8(JAN 10) CO2 24(JAN 12)27(JAN 10) Cl 107(JAN 12)100(JAN 10) Cr 1.0(JAN 12)1.1(JAN 10) BUN 16(JAN 12)9(JAN 10) Glucose Random 92(JAN 12)H 105(JAN 10) Ca L 7.8(JAN 12)8.6(JAN 10) PT 13.9(JAN 10) INR 1.08(JAN 10) PTT 28.9(JAN 10) Medications Scheduled Meds (12):albuterol (albuterol 0.042% inhalation solution), amitriptyline, bimatoprost ophthalmic (bimatoprost 0.03% ophthalmic solution), doxycycline, fluconazole (Diflucan), ipratropium (ipratropium 0.02% inhalation solution), latanoprost ophthalmic (Xalatan ophthalmic 0.005% solution), losartan (Cozaar), nystatin-triamcinolone topical (nystatin-triamcinolone topical ointment), pantoprazole (Protonix), pravastatin, sucralfate (Carafate 1 g/10 mL oral suspension) Unscheduled Meds: None PRN Meds (7):Sodium Chloride 0.9% IV, acetaminophen, acetaminophen (Tylenol), docusate, ondansetron, temazepam (Restoril), tramadol (tramadol 50 mg oral tablet) One Time Meds (1):(Completed) potassium chloride (potassium chloride 20 mEq oral tablet, extended release) Continuous Infusions (1):Sodium Chloride 0.9% IV 1,000 mL ALL LABS REVIEW AND ALL RADIOLOGY REPORTS REVIEWED IMPRESSION infected finger better PLAN can dc home withoral kavon
--- OUTSIDE RECORDS SUMMARY | 2019-01-19 05:39 | XMS REPORT | Summary of Care ---
Author Author [facility] Organization [facility] Address Unknown Phone Unavailable Encounter HQ Dayanara_darling(FIN) [id number] Date(s): 10/11/15 - 10/11/15 [facility] [address] [place] [address]- [phone] Discharge Disposition: Home Attending Physician: Anay Fox DO Referring Physician: Anay Fox DO Vital Signs No data available for this [...] 08/01/13 Hx pneumococcal vaccine 12/29/11 Procedures Procedure Date Related Diagnosis Body Site Biopsy of lymph node Cataract surgery Hysterectomy Incision AND drainage Knee replacement Social History Social History Type Response Smoking Status Never smoker; Exposure to Tobacco Smoke None; Cigarette Smoking Last 365 Days No; Reg Smoking Cessation Counseling No Assessment and Plan No data available for this section
--- OUTSIDE RECORDS SUMMARY | 2019-01-19 05:39 | XMS REPORT | Continuity of Care Document ---
Author Author [facility] Interface Address Unknown Phone Unavailable Problems Problem Status Onset Date Classification Date Reported Comments Source Cerebral infarction, unspecified 06/25/2018 01/02/2019 [facility] RIGHT SIDED WEAKNESS Active 06/13/2018 [facility] STROKE SYMPTOMS Active 06/13/2018 [facility] NECK MASS R22.1 Active 04/14/2017 [facility] FALL- SHOULDER PAIN OR INJURY Active 05/05/2016 [facility] SYNCOPE, COLLAPSE Active 05/05/2016 [facility] ROUTINE Active 09/23/2015 [facility] Discharge Diagnosis: Scalp laceration 10/20/2014 10/23/2014 [facility] Discharge Diagnosis: Fall 10/20/2014 10/23/2014 [facility] FALL Active 10/20/2014 [facility] 792.1 Active 08/22/2014 [facility] UNK Active 08/22/2014 [facility] THROMBOCYTOPENIA Active 01/09/2014 [facility] LABS Active 12/29/2013 [facility] Abscess right middle finger Resolved Problem 01/02/2019 [facility] Acid reflux Active Problem 01/02/2019 [facility] Anxiety Active Problem 01/02/2019 [facility] Arthritis Active Problem 01/02/2019 [facility] Cataract Resolved Problem 05/11/2016 [facility] GI bleeding Resolved Problem 01/02/2019 [facility] Hypertension Active Problem 01/02/2019 [facility] Irregular heart beat Resolved Problem 01/02/2019 [facility] Knee replacement Active Problem 01/02/2019 [facility] Pneumonia Resolved Problem 01/02/2019 [facility] Raynaud disease Active Problem 01/02/2019 [facility] Rectal bleeding Active Problem 01/02/2019 [facility] Weakness 01/02/2019 [facility] Essential hypertension [facility]02[facility] Gastro-esophageal reflux disease with esophagitis 01/02/2019 [facility] Anxiety disorder, unspecified 01/02/2019 [facility] Unspecified osteoarthritis, unspecified site 01/02/2019 [facility] Raynaud's syndrome without gangrene 01/02/2019 [facility] CRST syndrome 01/02/2019 [facility] Hypothyroidism, unspecified 01/02/2019 [facility] Hyperlipidemia, unspecified 01/02/2019 [facility] Radiculopathy, lumbar region 01/02/2019 [facility] Type 2 diabetes mellitus without complications 01/02/2019 [facility] Coma scale, best motor response, obeys commands, at arrival to emergency department 01/02/2019 [facility] Coma scale, eyes open, spontaneous, at arrival to emergency department 01/02/2019 [facility] Coma scale, best verbal response, oriented, at arrival to emergency department 01/02/2019 [facility] NIHSS score 2 01/02/2019 [facility] Reactive lymphadenopathy Active Diagnosis 06/17/2017 [facility] Degenerative arthritis Active Problem 04/30/2018 [facility] Osteopenia Active Problem 12/03/2018 [facility] Diabetes Active Problem 12/03/2018 [facility] Raynaud's syndrome Active Problem 12/03/2018 [facility] Sciatica Active Diagnosis 09/21/2018 [facility] Peripheral vascular disease Active Problem 12/03/2018 [facility] Osteoarthritis Active Problem 12/03/2018 [facility] COPD Active Problem 12/03/2018 [facility] Migraines Active Problem 12/03/2018 [facility] BMI 30.0-30.9,adult Active Problem 12/03/2018 [facility] Insomnia Active Problem 12/03/2018 [facility] Elevated alkaline phosphatase level Active Problem 12/03/2018 [facility] Sciatica of right side Active Problem 12/03/2018 [facility] Hypothyroid Active Problem 12/03/2018 [facility] Obesity Active Problem 12/03/2018 [facility] Arthritis Active Problem 04/30/2018 [facility] GERD Active Problem 12/03/2018 [facility] CREST syndrome Active Problem 12/03/2018 [facility] Tinea corporis Active Problem 12/03/2018 [facility] Vitamin D deficiency Active Problem 12/03/2018 [facility] Postmenopausal Active Diagnosis 05/27/2017 [facility] Lymphadenopathy Active Diagnosis 05/27/2017 [facility] Abnormal nuclear cardiac imaging test Active Diagnosis 01/19/2018 [facility] Asymptomatic menopausal state Active Diagnosis 11/16/2017 [facility] Routine general medical examination at a health care facility Active Diagnosis 11/16/2017 [facility] Monilia infection Active Diagnosis 04/20/2018 [facility] 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 Active Problem 12/03/2018 [facility] Abnormal levels of other serum enzymes Active Diagnosis 04/30/2018 [facility] Vaginal odor Active Problem 12/03/2018 [facility] Carotid stenosis Active Problem 12/03/2018 [facility] Atypical nevus Active Diagnosis 05/07/2018 [facility] Prediabetes Active Problem 08/27/2016 [facility] Shoulder pain Active Diagnosis 08/06/2016 [facility] Laceration of scalp Active Diagnosis 05/18/2016 [facility] Sciatica Active Problem 06/25/2015 [facility] Tinea corporis Active Problem 06/25/2015 [facility] Insomnia Active Problem 06/25/2015 [facility] Peripheral artery disease Active Problem 06/25/2015 [facility] Raynauds disease Active Problem 06/25/2015 [facility] CREST syndrome Active Problem 06/25/2015 [facility] Prediabetes Active Problem 06/25/2015 [facility] Degenerative arthritis of finger Active Problem 06/25/2015 [facility] Vitamin d deficiency Active Problem 06/25/2015 [facility] Elevated alkaline phosphatase level Active Problem 06/25/2015 [facility] Hyperlipidemia Active Problem 06/25/2015 [facility] HTN Active Problem 06/25/2015 [facility] Migraine Active Problem 06/25/2015 [facility] Right-sided back pain Active Diagnosis 06/25/2015 [facility] GERD Active Problem 06/25/2015 [facility] Needs flu shot Active Diagnosis 08/06/2016 [facility] History of GI bleed Active Diagnosis 11/12/2016 [facility] Hypotension Active Diagnosis 02/28/2016 [facility] Right hip pain Active Diagnosis 02/28/2016 [facility] THROMBOCYTOPENIA NOS Active [facility] ABN FIND-STOOL CONTENTS Active [facility] ENCNTR SCREEN MAMMOGRAM FOR MALIGNANT NE Active [facility] SYNCOPE AND COLLAPSE Active [facility] LOCALIZED SWELLING, MASS AND LUMP, NECK Active [facility] WEAKNESS Active [facility] HYPOTHYROIDISM, UNSPECIFIED Active [facility] ESSENTIAL (PRIMARY) HYPERTENSION Active [facility] Medications Medication Details Route Status Patient Instructions Ordering Provider Order Date Source Tramadol HCl 1 tablet Orally Active 50 mg Orally every 6-8 hrs prn pain [facility] 01/11/2019 [facility] Levothyroxine Sodium 1 tablet on an empty stomach in the morning Orally Active 100 MCG Orally Once a day [facility] 12/02/2018 [facility] Tramadol HCl 1 tablet Orally Active 50 mg Orally every 6-8 hrs prn pain [facility] 10/20/2018 [facility] NIFEdipine ER 1 tablet on an empty stomach Orally Active 30 mg Orally Once a day [facility] 10/13/2018 [facility] MetroGel-Vaginal 1 applicatorful at bedtime Vaginal Active 0.75 % Vaginal Once a day [facility] 10/13/2018 [facility] Protonix 40 mg, 1 tab, Route: PO, Drug form: ECTAB, Daily, Dosing Weight 69.091, kg, Start date: 06/15/18 9:00:00 CDT, Duration: 30 day, Stop date: 07/14/18 9:00:00 CDTNotes: Tablet should not be chewed or crushed. (Same as: Protonix) Inactive 06/15/2018 [facility] 24 HR Metoprolol Tartrate 25 MG Extended Release Tablet [Toprol] 25 mg, 1 tab, Route: PO, Drug form: ERTAB, Daily, Start date: 06/15/18 9:00:00 CDT, Duration: 30 day, Stop date: 07/14/18 9:00:00 CDTNotes: (Same as: Toprol XL) Do Not Crush Inactive 06/15/2018 [facility] metFORMIN 500 mg oral tablet, extended release 500 mg, 1 tab, Route: PO, Drug form: ERTAB, Daily, Dosing Weight 69.091, kg, Start date: 06/15/18 9:00:00 CDT, Duration: 30 day, Stop date: 07/14/18 9:00:00 CDTNotes: (Same as: Glucophage XR) "Do Not Crush" Inactive 06/15/2018 [facility] Levothroid 75 microgram, 1 tab, Route: PO, Drug form: TAB, Daily, Dosing Weight 69.091, kg, Start date: 06/15/18 6:30:00 CDT, Duration: 30 day, Stop date: 07/14/18 6:30:00 CDTNotes: Take 1 hour before or 2 hours after meal; Enteral feeds may interefere with the absorption of this medication. (Same as:Synthroid, Levothroid) Inactive 06/15/2018 [facility] diclofenac sodium extended release 75 mg, 1 tab, Route: PO, Drug form: ECTAB, Bedtime, Start date: 06/14/18 21:00:00 CDT, Duration: 30 day, Stop date: 07/13/18 21:00:00 CDTNotes: Do Not Crush or Chew. (Same as: Voltaren) No Longer Active 06/15/2018 [facility] hydrochlorothiazide 12.5 mg, 1 tab, Route: PO, Drug form: TAB, Bedtime, Start date: 06/14/18 21:00:00 CDT, Duration: 30 day, Stop date: 07/13/18 21:00:00 CDTNotes: (Same as: Hydrodiuril). Give with food. No Longer Active 06/15/2018 [facility] losartan 100 mg, 2 tab, Route: PO, Drug form: TAB, Bedtime, Start date: 06/14/18 21:00:00 CDT, Duration: 30 day, Stop date: 07/13/18 21:00:00 CDTNotes: (Same as: Cozaar) No Longer Active 06/15/2018 [facility] Diclofenac Sodium 75 MG / Misoprostol 0.2 MG Oral Tablet [Arthrotec 75/200] 1 tab, Route: PO, Drug Form: TAB, Dosing Weight 69.091, kg, Bedtime, Start date: 06/14/18 21:00:00 CDT, Duration: 30 day, Stop date: 07/13/18 21:00:00 CDT Inactive 06/15/2018 [facility] misoprostol 200 microgram, 2 tab, Route: PO, Drug form: TAB, Bedtime, Start date: 06/14/18 21:00:00 CDT, Duration: 30 day, Stop date: 07/13/18 21:00:00 CDTNotes: (Same as:Cytotec) Take with food No Longer Active 06/15/2018 [facility] Hydrochlorothiazide 12.5 MG / Losartan Potassium 100 MG Oral Tablet 1 tab, Route: PO, Drug Form: TAB, Dosing Weight 69.091, kg, Bedtime, Start date: 06/14/18 21:00:00 CDT, Duration: 30 day, Stop date: 07/13/18 21:00:00 CDT Inactive 06/15/2018 [facility] Aspirin 81 MG Enteric Coated Tablet 81 mg=1 tab, PO, Daily, # 30 tab, 0 Refill(s), Pharmacy: [place] [id number] Active 06/14/2018 [facility] atorvastatin 10 MG Oral Tablet [Lipitor] 10 mg=1 tab, PO, Bedtime, # 30 tab, 0 Refill(s), Pharmacy: [place] [id number] Active 06/14/2018 [facility] nystatin topical 100,000 units/g cream 1 appl, Route: TOP, TID, Drug form: CRM, PRN Rash, Start date: 06/14/18 10:08:00 CDT, Duration: 30 day, Stop date: 07/14/18 10:07:00 CDTNotes: (Same as:Mycostatin, Nilstat) For external use only. No Longer Active 06/14/2018 [facility] tramadol hydrochloride 50 MG Oral Tablet 50 mg, 1 tab, Route: PO, Drug form: TAB, Q4H, Dosing Weight 69.091, kg, PRN Pain Score 1-5, Start date: 06/14/18 9:49:00 CDT, Duration: 30 day, Stop date: 07/14/18 9:48:00 CDTNotes: Not to exceed 400mg/day. (Same As: Ultram) No Longer Active 06/14/2018 [facility] Nystatin 500,000 unit, Route: TOP, TID, Dosing Weight 69.091, kg, PRN Rash, Start date: 06/14/18 9:49:00 CDT, Duration: 30 day, Stop date: 07/14/18 9:48:00 CDT Inactive 06/14/2018 [facility] Aspirin 81 mg, 1 tab, Route: PO, Drug form: ECTAB, Daily, Dosing Weight 69.091, kg, Start date: 06/14/18 9:00:00 CDT, Duration: 30 day, Stop date: 07/13/18 9:00:00 CDTNotes: Do not crush or chew. (Same As: Ecotrin) No Longer Active 06/14/2018 [facility] clobetasol topical 0.05% cream 1 appl, TOP, BID, # 15 gm, 0 Refill(s) Active 06/14/2018 [facility] Diclofenac 75 mg, PO, 0 Refill(s) Active 06/14/2018 [facility] Levothyroxine Sodium 0.075 MG Oral Tablet [Levothroid] 75 microgram=1 tab, PO, Daily, # 90 tab, 0 Refill(s) Active 06/14/2018 [facility] metFORMIN 500 mg oral tablet, extended release 500 mg=1 tab, PO, Daily, 0 Refill(s) Active 06/14/2018 [facility] Acetaminophen 650 mg, 2 tab, Route: PO, Drug form: TAB, Q4H, Dosing Weight 69.091, kg, PRN Pain 1-3/Temp > 100.4 F, Start date: 06/13/18 22:57:00 CDT, Duration: 30 day, Stop date: 07/13/18 22:56:00 CDTNotes: Do not exceed 4 gm/day. (Same as: Tylenol) No Longer Active 06/14/2018 [facility] Aspirin 325 mg, 1 tab, Route: PO, Drug form: TAB, ONCE, Dosing Weight 69.091, kg, Priority: STAT, Start date: 06/13/18 21:36:00 CDT, Stop date: 06/13/18 21:36:00 CDTNotes: Take with food. Inactive 06/14/2018 [facility] Flush 0.9% 10 mL, Route: IVP, Drug Form: INJ, Dosing Weight 71.818, kg, PRN, PRN Line Flush, Start date: 06/13/18 19:18:00 CDT, Duration: 30 day, Stop date: 07/13/18 19:17:00 CDTNotes: (Same as: BD Posiflush) No Longer Active 06/14/2018 [facility] Tramadol HCl 1 tablet as needed Orally Active 50 mg Orally prn [place] 06/04/2018 [facility] Clobetasol Propionate 1 application to affected area Externally Active 0.05 % Externally Twice a day PRN [place] 05/05/2018 [facility] Tramadol HCl 1 tablet Orally Active 50 mg Orally every 6-8 hrs prn pain [facility] 03/17/2018 [facility] Synthroid 1 tablet on an empty stomach in the morning Orally Active 75 MCG Orally qd LAST REFILL, NEEDS BLOOD WORK [facility] 03/02/2018 [facility] Tramadol HCl 1 tablet Orally Active 50 mg Orally every 6-8 hrs prn pain [facility] 12/29/2017 [facility] Synthroid 1 tablet on an empty stomach in the morning Orally Active 75 MCG Orally Once a day [facility] 12/02/2017 [facility] Tramadol HCl 1 tablet Orally Active 50 mg Orally every 6-8 hrs prn pain [facility] 11/18/2017 [facility] Nystatin 1 application to affected area Externally Active 115523 UNIT/GM Externally Twice a day [place] 11/10/2017 [facility] Tramadol HCl 1 tablet Orally Active 50 MG Orally every 6 hrs prn pain [facility] 09/12/2017 [facility] Tramadol HCl 1 tablet Orally Active 50 mg Orally every 6 hrs prn pain [facility] 09/01/2017 [facility] Tramadol HCl 1 tablet Orally Active 50 MG Orally every 6 hrs prn pain [facility] 08/02/2017 [facility] Flexeril 1 tablet Orally Active 10 MG Orally three times a day (tid) as needed (prn) [facility] 06/14/2017 [facility] Augmentin 1 tablet Orally Active 875-125 MG Orally every 12 hrs [facility] 05/24/2017 [facility] Medrol ([place]) as directed Orally Active 4 MG Orally daily [facility] 05/24/2017 [facility] Diclofenac Sodium 1 tablet Orally Active 75 MG Orally Once a day [facility] 12/09/2016 [facility] Misoprostol 1 tablet with food Orally Active 200 MCG Orally once a day [facility] 12/09/2016 [facility] Diclofenac Sodium 1 tablet Orally Active 75 mg Orally Once a day [facility] 12/09/2016 [facility] Misoprostol 1 tablet with food Orally Active 200 MCG Orally once a day [place] 12/09/2016 [facility] Clobetasol Prop Emollient Base small amount Externally Active 0.05 % Externally to affected area qd prn [facility] 10/30/2016 [facility] Arthrotec 1 tablet Orally Active 75-200 MG-MCG Orally once a day [facility] 10/30/2016 [facility] Vitamin D (Ergocalciferol) 1 capsule Orally Active 50,000 Orally once per week [facility] 08/30/2016 [facility] Synthroid 1 tablet Orally Active 50 MCG Orally Once a day [facility] 08/26/2016 [facility] Synthroid 1 tablet Orally Active 50 MCG Orally Once a day [facility] 08/26/2016 [facility] Acetaminophen 300 MG / Codeine Phosphate 30 MG Oral Tablet [Tylenol with Codeine #3] 1 - 2 tab, PO, Q4H, PRN Pain, X 3 day, # 20 tab, 0 Refill(s) Active 05/08/2016 [facility] Acetaminophen 300 MG / Hydrocodone Bitartrate 5 MG Oral Tablet [Vicodin 5/300] 1 tab, PO, Q8H, PRN Pain, X 10 day, # 30 tab, 0 Refill(s) Active 05/08/2016 [facility] Kenalog-40 40 mg, 1 mL, Route: intra-ARTICULAR, Drug form: INJ, ONCE, Dosing Weight 71.818, kg, PRN Keep at Bedside, Start date: 05/07/16 8:17:00 CDTNotes: (Same As: Kenalog-40) MEDICATION WASTE Product Size: 40 mg Product Wasted: ___ mg No Longer Active 05/07/2016 [facility] Marcaine HCl with Epinephrine 0.5%-1:200,000 preservative-free injectable solution Route: intra-ARTICULAR, Drug Form: INJ, Dosing Weight 71.818, kg, ONCE, PRN Keep at Bedside, Start date: 05/07/16 8:15:00 CDTNotes: Preservative free. Not for use in continuous infusion. (Same As: Sensorcaine-MPF with Epinephrine) No Longer Active 05/07/2016 [facility] Atropine 0.5 mg, 5 mL, Route: IVP, Drug form: INJ, ONCE, Dosing Weight 71.818, kg, PRN Bradycardia, Start date: 05/07/16 2:25:00 CDT, Symptomatic bradycardia with a rate of No Longer Active 05/07/2016 [facility] Nitroglycerin 0.4 MG Sublingual Tablet 0.4 mg, 1 tab, Route: SL, Drug form: TAB, Q5Min, Dosing Weight 71.818, kg, PRN Chest Pain, Start date: 05/07/16 2:25:00 CDT, Duration: 3 doses or times, Stop date: Limited # of timesNotes: (Same as:Nitroquick, Nitrostat) "Do Not Crush" Sublingual tablet No Longer Active 05/07/2016 [facility] PLease bring Pt's Own Arthrotec to pharmacy for label PLease bring Pt's Own Arthrotec to pharmacy for label, Reminder, Drug form: MISC, Route: MISC, Q12H, 05/06/16 21:00:00 CDT, Duration: 30 day, Stop date: 06/05/16 9:00:00 CDT No Longer Active 05/07/2016 [facility] Pravastatin 20 mg, 1 tab, Route: PO, Drug form: TAB, Bedtime, Dosing Weight 71.818, kg, Start date: 05/06/16 21:00:00 CDT, Duration: 30 day, Stop date: 06/04/16 21:00:00 CDTNotes: (Same as: Pravachol) No Longer Active 05/07/2016 [facility] Cozaar 100 mg, 2 tab, Route: PO, Drug form: TAB, Bedtime, Start date: 05/06/16 21:00:00 CDT, Duration: 30 day, Stop date: 06/04/16 21:00:00 CDTNotes: (Same as: Raul) No Longer Active 05/07/2016 [facility] Hydrochlorothiazide 12.5 MG / Losartan Potassium 100 MG Oral Tablet 1 tab, Route: PO, Drug Form: TAB, Dosing Weight 71.818, kg, Bedtime, Start date: 05/06/16 21:00:00 CDT, Duration: 30 day, Stop date: 06/04/16 21:00:00 CDT Inactive 05/07/2016 [facility] Diclofenac Sodium 75 MG / Misoprostol 0.2 MG Oral Tablet [Arthrotec 75/200] 1 tab, Route: PO, Drug Form: TAB, Dosing Weight 71.818, kg, Bedtime, Start date: 05/06/16 21:00:00 CDT, Duration: 30 day, Stop date: 06/04/16 21:00:00 CDT No Longer Active 05/07/2016 [facility] Xalatan 1 drp, Route: BOTH EYES, Bedtime, Drug form: SOLN, Start date: 05/06/16 21:00:00 CDT, Duration: 30 day, Stop date: 06/04/16 21:00:00 CDTNotes: Keep refrigerated. (Same as:Chivo) No Longer Active 05/07/2016 [facility] bimatoprost 0.1 MG/ML Ophthalmic Solution [Lumigan] 1 drp, Route: BOTH EYES, Drug Form: SOLN, Dosing Weight 71.818, kg, Bedtime, Start date: 05/06/16 21:00:00 CDT, Duration: 30 day, Stop date: 06/04/16 21:00:00 CDT Inactive 05/07/2016 [facility] Trazodone 25 mg, 0.5 tab, Route: PO, Drug form: TAB, Bedtime, Dosing Weight 71.818, kg, Start date: 05/06/16 21:00:00 CDT, Duration: 30 day, Stop date: 06/04/16 21:00:00 CDTNotes: (Same As: aJce) No Longer Active 05/07/2016 [facility] Microzide 12.5 mg, 1 cap, Route: PO, Drug form: CAP, Bedtime, Start date: 05/06/16 21:00:00 CDT, Duration: 30 day, Stop date: 06/04/16 21:00:00 CDTNotes: (Same as: Microzide) With food. No Longer Active 05/07/2016 [facility] Acetaminophen 325 MG / Hydrocodone Bitartrate 10 MG Oral Tablet [[place] 10/325] 2 tab, Route: PO, Drug Form: TAB, Dosing Weight 71.818, kg, Q4H, PRN Pain Score 4-6, Start date: 05/06/16 13:33:00 CDT, Duration: 30 day, Stop date: 06/05/16 13:32:00 CDTNotes: Do not exceed 4gm/day of acetaminophen. (Same as: [place] 325/10) No Longer Active 05/06/2016 [facility] Thyroxine 25 microgram, 1 tab, Route: PO, Drug form: TAB, Q6AM, Dosing Weight 71.818, kg, Start date: 05/06/16 9:13:00 CDT, Duration: 30 day, Stop date: 06/05/16 6:00:00 CDTNotes: Take 1 hour before or 2 hours after meal; Enteral feeds may interefere with the absorption of this medication. (Same as:Levothroid) No Longer Active 05/06/2016 [facility] Saline Flush 0.9% 10 ml, Route: IVP, Drug Form: INJ, Dosing Weight 75, kg, Q12H, Start date: 05/06/16 9:00:00 CDT, Duration: 30 day, Stop date: 06/04/16 21:00:00 CDTNotes: (Same as: BD Posiflush) No Longer Active 05/06/2016 [facility] Protonix 40 mg, 1 tab, Route: PO, Drug form: ECTAB, Daily, Dosing Weight 71.818, kg, Start date: 05/06/16 9:00:00 CDT, Duration: 30 day, Stop date: 06/04/16 9:00:00 CDTNotes: Tablet should not be chewed or crushed. (Same as: Protonix) No Longer Active 05/06/2016 [facility] 24 HR Metoprolol Tartrate 25 MG Extended Release Tablet [Toprol] 25 mg, 1 tab, Route: PO, Drug form: ERTAB, Daily, Start date: 05/06/16 9:00:00 CDT, Duration: 30 day, Stop date: 06/04/16 9:00:00 CDTNotes: (Same as: Toprol XL) Do Not Crush No Longer Active 05/06/2016 [facility] Aspirin 81 mg, 1 tab, Route: PO, Drug form: CHEWTAB, Daily, Dosing Weight 71.818, kg, Start date: 05/06/16 9:00:00 CDT, Duration: 30 day, Stop date: 06/04/16 9:00:00 CDTNotes: Take with food. No Longer Active 05/06/2016 [facility] Trazodone 25 mg, 0.5 tab, Route: PO, Drug form: TAB, Bedtime, Dosing Weight 71.818, kg, PRN Sleep, Start date: 05/06/16 8:59:00 CDT, Duration: 30 day, Stop date: 06/05/16 8:58:00 CDT, ..Notes: (Same As: Desyrel) No Longer Active 05/06/2016 [facility] tramadol hydrochloride 50 MG Oral Tablet 50 mg, 1 tab, Route: PO, Drug form: TAB, Q4H, Dosing Weight 71.818, kg, PRN Pain Score 4-6, Start date: 05/06/16 8:57:00 CDT, Duration: 30 day, Stop date: 06/05/16 8:56:00 CDTNotes: Not to exceed 400mg/day. (Same As: Ultram) Inactive 05/06/2016 [facility] Imodium A-D 2 mg, 1 cap, Route: PO, Drug form: CAP, Q4H, Dosing Weight 71.818, kg, PRN as needed for loose stool, Start date: 05/06/16 8:57:00 CDT, Duration: 30 day, Stop date: 06/05/16 8:56:00 CDTNotes: (Same as: Imodium) MAX adult dose is 8 caps/day No Longer Active 05/06/2016 [facility] 200 ACTUAT Albuterol 0.09 MG/ACTUAT Metered Dose Inhaler [ProAir HFA] 2 puff, Route: INHALATION, Drug Form: AERO/A, Dosing Weight 71.818, kg, Q4H, PRN Wheezing, Start date: 05/06/16 8:56:00 CDT, Duration: 30 day, Stop date: 06/05/16 8:55:00 CDTNotes: Same as: Ventolin HFA WASTE: Aerosol - Return to Pharmacy No Longer Active 05/06/2016 [facility] 200 ACTUAT Albuterol 0.09 MG/ACTUAT Metered Dose Inhaler [ProAir HFA] 2 puff, INHALATION, Q4H, PRN as needed for wheezing, 0 Refill(s) Active 05/06/2016 [facility] Nystatin 500,000 unit, TOP, PRN Rash, 0 Refill(s) Active 05/06/2016 [facility] Aspirin 81 mg, PO, Daily, 0 Refill(s) Active 05/06/2016 [facility] Thyroxine 25 mg, Daily, 0 Refill(s) Active 05/06/2016 [facility] Saline Flush 0.9% 10 ml, Route: IVP, Drug Form: INJ, Dosing Weight 75, kg, PRN, PRN Line Flush, Start date: 05/06/16 6:14:00 CDT, Duration: 30 day, Stop date: 06/05/16 6:13:00 CDTNotes: (Same as: BD Posiflush) No Longer Active 05/06/2016 [facility] Sodium Chloride 0.154 MEQ/ML Injectable Solution 1,000 mL, Rate: 50 ml/hr, Infuse over: 20 hr, Route: IV, Dosing Weight 75 kg, Total Volume: 1,000, Start date: 05/06/16 6:14:00 CDT, Duration: 30 day, Stop date: 06/05/16 6:13:00 CDT No Longer Active 05/06/2016 [facility] potassium chloride 40 mEq, Route: PO, ONCE, Dosing Weight 75, kg, Start date: 05/06/16 5:29:00 CDT, Stop date: 05/06/16 5:29:00 CDT Inactive 05/06/2016 [facility] Ativan 1 mg, 0.5 mL, Route: IVP, Drug form: INJ, Q8H, Dosing Weight 75, kg, PRN Agitation, Priority: Routine, Start date: 05/06/16 4:48:00 CDT, Duration: 30 day, Stop date: 06/05/16 4:47:00 CDTNotes: (Same as: Ativan) No Longer Active 05/06/2016 [facility] Morphine 2 mg, Route: IVP, Drug form: INJ, ONCE, Dosing Weight 75, kg, Priority: STAT, Start date: 05/06/16 1:28:00 CDT, Stop date: 05/06/16 1:28:00 CDT Inactive 05/06/2016 [facility] Saline Flush 0.9% 10 mL, Route: IVP, Drug Form: INJ, Dosing Weight 75, kg, PRN, PRN Line Flush, Start date: 05/06/16 0:11:00 CDT, Duration: 30 day, Stop date: 06/05/16 0:10:00 CDTNotes: (Same as: BD Posiflush) No Longer Active 05/06/2016 [facility] Zofran 4 mg, Route: IVP, Drug form: INJ, ONCE, Dosing Weight 75, kg, Priority: STAT, Start date: 05/06/16 0:09:00 CDT, Stop date: 05/06/16 0:09:00 CDT Inactive 05/06/2016 [facility] Morphine 2 mg, Route: IVP, Drug form: INJ, ONCE, Dosing Weight 75, kg, Priority: STAT, Start date: 05/06/16 0:09:00 CDT, Stop date: 05/06/16 0:09:00 CDT Inactive 05/06/2016 [facility] Synthroid 1 tablet Orally No Longer Active 25 MCG Orally Once a day [facility] 03/06/2016 [facility] Tramadol HCl 1 tablet Orally Active 50 mg Orally every 6 hrs prn [facility] 02/25/2016 [facility] Arthrotec 1 tablet Orally Active 75-200 MG-MCG Orally once a day [facility] 12/04/2015 [facility] MetFORMIN HCl ER 1 tablet with evening meal Orally Active 500 MG Orally Once a day [facility] 11/26/2015 [facility] Losartan Potassium-HCTZ 1/2 tablet Orally Active 100-12.5 MG Orally Once a day [facility] 11/26/2015 [facility] MetFORMIN HCl ER 1 tablet with evening meal Orally Active 500 mg Orally Once a day [place] 11/26/2015 [facility] Losartan Potassium-HCTZ 1/2 tablet Orally Active 100-12.5 MG Orally Once a day [facility] 11/26/2015 [facility] Ventolin HFA 2 puffs Inhalation Active 108 (90 Base) MCG/ACT Inhalation every 4 hrs [facility] 11/05/2015 [facility] Pantoprazole Sodium 1 tablet Orally Active 40 mg Orally Once a day [facility] 11/05/2015 [facility] Pantoprazole Sodium 1 tablet Orally Active 40 mg Orally Once a day [place] 11/05/2015 [facility] Ventolin HFA 2 puffs Inhalation Active 108 (90 Base) MCG/ACT Inhalation every 4 hrs [facility] 11/05/2015 [facility] Tramadol HCl 1 tablet as needed Orally Active 50 mg Orally every 6 hrs [employer] 06/07/2015 [facility] ProAir HFA 2 puffs as needed Inhalation No Longer Active 108 (90 Base) MCG/ACT Inhalation every 4 hrs [facility] 02/25/2015 [facility] Nexium 1 capsule Orally No Longer Active 40 mg Orally Once a day [facility] 02/25/2015 [facility] Amlodipine Besylate 1 tablet Orally No Longer Active 2.5 MG Orally Once a day [facility] 02/25/2015 [facility] tramadol hydrochloride 50 MG Oral Tablet 50 mg=1 tab, PO, Q6H, Pain, # 10 tab, 0 Refill(s) Active 10/20/2014 [facility] Epinephrine 0.01 MG/ML / Lidocaine Hydrochloride 10 MG/ML Injectable Solution 10 mL, Route: SUB-Q, Drug Form: INJ, Dosing Weight 75, kg, ONCE, Start date: 10/20/14 5:02:00, Stop date: 10/20/14 5:02:00Notes: (Same as: Xylocaine w/Epinephrine) Inactive 10/20/2014 [facility] iodixanol 94 mL, Route: IVP, Drug Form: SOLN, Dosing Weight 75, kg, ONCALL, STAT, Start date: 10/20/14 2:26:00, Duration: 1 doses or times, Dose=2.2ml/kg, Max [id number] -- "To be infused by Radiology Staff ONLY"Special Instructions: Dose=2.2ml/kg, Max etls=[id number] -- "To be infused by Radiology Staff ONLY"Notes: (Same as: Visipaque). Inactive 10/20/2014 [facility] Morphine 4 mg, 1 mL, Route: IVP, Drug form: INJ, ONCE, Dosing Weight 75, kg, Priority: STAT, Start date: 10/20/14 2:25:00, Stop date: 10/20/14 2:25:00Notes: (Same as:MORPhine Sulfate) Inactive 10/20/2014 [facility] Ondansetron 4 mg, 2 mL, Route: IVP, Drug form: INJ, ONCE, Dosing Weight 75, kg, Priority: STAT, Start date: 10/20/14 2:25:00, Stop date: 10/20/14 2:25:00Notes: (Same as: Zofran) Inactive 10/20/2014 [facility] Saline Flush 0.9% 10 mL, Route: IVP, Drug Form: INJ, Dosing Weight 75, kg, PRN, PRN Line Flush, Start date: 10/20/14 2:25:00, Duration: 30 day, Stop date: 11/19/14 2:24:00Notes: (Same as: BD Posiflush) Inactive 10/20/2014 [facility] PlasmaLyte A PH-7.4 1,000 mL 1,000 mL, Rate: 1,000 ml/hr, Infuse over: 1 hr, Route: IV, Dosing Weight 75 kg, Total Volume: 1,000, Priority: STAT, Start date: 10/20/14 2:25:00, Duration: 1 doses or times, Stop date: 10/20/14 3:24:00 Inactive 10/20/2014 [facility] Sodium Chloride 0.154 MEQ/ML Injectable Solution 500 mL, Route: IV, ONCE, Dosing Weight 75.909 kg, Start date: 09/13/14 7:53:00, Stop date: 09/13/14 7:53:00, Bolus Inactive 09/13/2014 [facility] metoprolol 25 mg oral tablet, extended release 25 mg, PO, Daily, # 30 tab, 0 Refill(s) Active 09/10/2014 [facility] pantoprazole 40 MG Enteric Coated Tablet [Protonix] 40 mg=1 tab, PO, Daily, # 30 tab, 0 Refill(s) Active 09/10/2014 [facility] bimatoprost 0.1 MG/ML Ophthalmic Solution [Lumigan] 1 drp, BOTH EYES, Bedtime, 0 Refill(s) Active 09/10/2014 [facility] Imitrex 1 tablet Orally Active 50 MG Orally at headache onset, may repeat in 2 hours, max 2 a day [place] [facility] 03/29/2014 [facility] Imitrex 1 tablet Orally Active 50 mg Orally at headache onset, may repeat in 2 hours, max 2 a day [facility] 03/29/2014 [facility] Protonix 40 mg, Route: IVP, Drug form: INJ, BID-Before Meals, Dosing Weight 75.909, kg, Start date: 01/12/14 16:30:00, Duration: 30 day, Stop date: 02/11/14 7:30:00 Inactive 01/12/2014 [facility] Sucralfate 100 MG/ML Oral Suspension [Carafate] 1 gm, 10 mL, Route: PO, Drug form: SUSP, QID-Before Meals, Dosing Weight 75.909, kg, Start date: 01/12/14 16:30:00, Duration: 30 day, Stop date: 02/11/14 11:30:00Enteral feeds may interfere with the absorption of this medication. Shake well. Take 1 hr before or 2 hrs after antacids, dairy pdt, minerals & meals. (Same As: Carafate) Inactive 01/12/2014 [facility] Potassium Chloride 20 MEQ Extended Release Tablet 20 mEq=1 tab, PO, BID, # 60 tab, 0 Refill(s) Active 01/12/2014 [facility] Nystatin 100 UNT/MG / Triamcinolone Acetonide 0.001 MG/MG Topical Ointment 1 appl, TOP, BID, # 60 gm, 0 Refill(s) Active 01/12/2014 [facility] Sucralfate 100 MG/ML Oral Suspension [Carafate] 1 gm=10 mL, PO, QID-Before Meals, # 1,200 mL, 0 Refill(s) Active 01/12/2014 [facility] doxycycline monohydrate 100 mg oral tablet 100 mg=1 tab, PO, Q12H, # 28 tab, 0 Refill(s) Active 01/12/2014 [facility] pantoprazole 40 mg oral enteric coated tablet 40 mg=1 tab, PO, Daily, # 30 tab, 0 Refill(s) Active 01/12/2014 [facility] Diflucan 200 mg, 2 tab, Route: PO, Drug form: TAB, [id number], Dosing Weight 75.909, kg, Start date: 01/12/14 12:00:00, Duration: 5 day, Stop date: 01/16/14 12:00:00(Same as: Diflucan) Inactive 01/12/2014 [facility] Sodium Chloride 0.154 MEQ/ML Injectable Solution 1,000 mL, Rate: 25 ml/hr, Infuse over: 40 hr, Route: IV, Dosing Weight 75.909 kg, Total Volume: 1,000, Start date: 01/12/14 9:36:00, Duration: 1 day, Stop date: 01/13/14 9:35:00 Inactive 01/12/2014 [facility] Potassium Chloride 20 MEQ Extended Release Tablet 40 mEq, 2 tab, Route: PO, Drug form: ERTAB, ONCE, Dosing Weight 75.909, kg, Start date: 01/12/14 0:46:00, Stop date: 01/12/14 0:46:00(Same as: K-Dur 20) "Do Not Crush" With food and full glass of water Inactive 01/12/2014 [facility] hydrochlorothiazide 25 mg oral tablet 12.5 mg, 0.5 tab, Route: PO, Drug form: TAB, Bedtime, Start date: 01/11/14 21:00:00, Duration: 30 day, Stop date: 02/09/14 21:00:00(Same as: Hydrodiuril) With food. Inactive 01/12/2014 [facility] pantoprazole 40 mg, 1 tab, Route: PO, Drug form: ECTAB, Before Dinner, Dosing Weight 75.909, kg, Start date: 01/11/14 16:30:00, Duration: 30 day, Stop date: 02/09/14 16:30:00Tablet should not be chewed or crushed. (Same as: Protonix) No Longer Active 01/11/2014 [facility] Sodium Chloride 0.9% IV IV, 30 ml/hr, ONCALL, PRN Blood Transfusion, Start date: 01/11/14 13:17:00, Duration: 1, 250 ml No Longer Active 01/11/2014 [facility] nystatin-triamcinolone topical ointment 1 appl, Route: TOP, BID, Drug form: OINT, Start date: 01/11/14 9:41:00, Stop date: 02/10/14 9:00:00(nystatin-triamcinolone 694602 units/g-0.1% top OINT 60 gm ) Non- Formulary Item No Longer Active 01/11/2014 [facility] Cozaar 100 mg, 2 tab, Route: PO, Drug form: TAB, Daily, Start date: 01/11/14 9:00:00, Duration: 30 day, Stop date: 02/09/14 9:00:00(Same as: Cozaar) No Longer Active 01/11/2014 [facility] hydrochlorothiazide 25 mg oral tablet 12.5 mg, 0.5 tab, Route: PO, Drug form: TAB, Daily, Start date: 01/11/14 9:00:00, Duration: 30 day, Stop date: 02/09/14 21:00:00(Same as: Hydrodiuril) With food. Inactive 01/11/2014 [facility] Omeprazole 40 mg, Route: PO, Drug form: DRC, Daily, Dosing Weight 75.909, kg, Start date: 01/11/14 9:00:00, Duration: 30 day, Stop date: 02/09/14 9:00:00 No Longer Active 01/11/2014 [facility] Doxycycline 100 mg, 1 tab, Route: PO, Drug form: TAB, Q12H, Dosing Weight 75.909, kg, Start date: 01/10/14 21:17:00, Duration: 30 day, Stop date: 02/09/14 21:00:00NO MILK/ANTACIDS/IRON Take 1 hour before or 2 hours after dairy products No Longer Active 01/11/2014 [facility] zolpidem 10 mg, Route: PO, Drug form: TAB, Bedtime, Dosing Weight 75.909, kg, Start date: 01/10/14 21:00:00, Duration: 30 day, Stop date: 02/08/14 21:00:00 Inactive 01/11/2014 [facility] Pravastatin 20 mg, 1 tab, Route: PO, Drug form: TAB, Bedtime, Dosing Weight 75.909, kg, Start date: 01/10/14 21:00:00, Duration: 30 day, Stop date: 02/08/14 21:00:00(Same as: Pravachol) No Longer Active 01/11/2014 [facility] latanoprost 0.05 MG/ML Ophthalmic Solution [Xalatan] 1 drp, Route: OPTH, Bedtime, Drug form: SOLN, Start date: 01/10/14 21:00:00, Duration: 30 day, Stop date: 02/08/14 21:00:00Keep refrigerated. (Same as:Xalatan) No Longer Active 01/11/2014 [facility] Hydrochlorothiazide 12.5 MG / Losartan Potassium 100 MG Oral Tablet 1 tab, Route: PO, Drug Form: TAB, Dosing Weight 75.909, kg, Bedtime, Start date: 01/10/14 21:00:00, Duration: 30 day, Stop date: 02/08/14 21:00:00 Inactive 01/11/2014 [facility] bimatoprost 0.3 MG/ML Ophthalmic Solution 1 drp, Route: OPTH, Bedtime, Drug form: SOLN, Start date: 01/10/14 21:00:00, Duration: 30 day, Stop date: 02/08/14 21:00:00 No Longer Active 01/11/2014 [facility] Amitriptyline 10 mg, 1 tab, Route: PO, Drug form: TAB, Bedtime, Dosing Weight 75.909, kg, Start date: 01/10/14 21:00:00, Duration: 30 day, Stop date: 02/08/14 21:00:00(Same as: Elavil) No Longer Active 01/11/2014 [facility] Acetaminophen 650 mg, 20.3 mL, Route: PO, Drug form: LIQ, Q4H, Dosing Weight 75.909, kg, PRN Other -See Comment, Start date: 01/10/14 20:27:00, Duration: 30 day, Stop date: 02/09/14 20:26:00Max [id number] g/day (4 gm/day). (Same as: Tylenol) Inactive 01/11/2014 [facility] Tylenol 650 mg, 2 tab, Route: PO, Drug form: TAB, Q4H, Dosing Weight 75.909, kg, PRN Fever, Start date: 01/10/14 20:25:00, Duration: 30 day, Stop date: 02/09/14 20:24:00Do not exceed 4 gm/day. (Same as: Tylenol) No Longer Active 01/11/2014 [facility] Ipratropium [place] 0.2 MG/ML Inhalant Solution 0.5 mg, 2.5 mL, Route: INHALATION, Drug form: SOLN, RQ6H, Dosing Weight 75.909, kg, Start date: 01/10/14 20:00:00, Duration: 30 day, Stop date: 02/09/14 14:00:00SEE RT DOCUMENTATION (Same as:Atrovent) No Longer Active 01/11/2014 [facility] Albuterol 0.417 MG/ML Inhalant Solution 1.25 mg, 3 mL, Route: NEB, Drug form: SOLN, RQ6H, Dosing Weight 75.909, kg, Start date: 01/10/14 20:00:00, Duration: 30 day, Stop date: 02/09/14 14:00:00SEE RT DOCUMENTATION (Same as: Proventil) No Longer Active 01/11/2014 [facility] Acetaminophen 650 mg, 20.3 mL, Route: PO, Drug form: LIQ, Q4H, Dosing Weight 75.909, kg, Start date: 01/10/14 20:00:00, Duration: 30 day, Stop date: 02/09/14 16:00:00Max [id number]=5031so/day (4 gm/day). (Same as: Tylenol) Inactive 01/11/2014 [facility] Restoril 30 mg, 2 cap, Route: PO, Drug form: CAP, Bedtime, PRN Sleep, Start date: 01/10/14 16:43:00, Duration: 30 day, Stop date: 02/09/14 16:42:00(Same As: Restoril) No Longer Active 01/10/2014 [facility] tramadol hydrochloride 50 MG Oral Tablet 50 mg, 1 tab, Route: PO, Drug form: TAB, Q4H, Dosing Weight 75.909, kg, PRN as needed for pain, Start date: 01/10/14 16:36:00, Duration: 30 day, Stop date: 02/09/14 16:35:00Not to exceed 400mg/day. (Same As: Ultram) No Longer Active 01/10/2014 [facility] Ondansetron 4 mg, 2 mL, Route: IVP, Drug form: INJ, Q8H, Dosing Weight 75.909, kg, PRN Nausea & Vomiting, Start date: 01/10/14 9:03:00, Duration: 30 day, Stop date: 02/09/14 9:02:00(Same as: Zofran) No Longer Active 01/10/2014 [facility] Docusate 100 mg, 1 cap, Route: PO, Drug form: CAP, BID, Dosing Weight 75.909, kg, PRN Constipation, Start date: 01/10/14 9:03:00, Duration: 30 day, Stop date: 02/09/14 9:02:00(Same as: Colace) (Do Not Crush) No Longer Active 01/10/2014 [facility] Acetaminophen 650 mg, 20.3 mL, Route: PO, Drug form: LIQ, Q4H, Dosing Weight 75.909, kg, PRN Pain 1-3/Temp > 100.4 F, Start date: 01/10/14 9:03:00, Duration: 30 day, Stop date: 02/09/14 9:02:00Max [id number]=1975jq/day (4 gm/day). (Same as: Tylenol) No Longer Active 01/10/2014 [facility] K-Dur 20 40 mEq, 2 tab, Route: PO, Drug form: ERTAB, Q4H, Dosing Weight 75.909, kg, times 2 doses, Start date: 01/10/14 8:00:00, Duration: 2 doses or times, Stop date: 01/10/14 12:00:00(Same as: K-Dur 20) "Do Not Crush" With food and full glass of water Inactive 01/10/2014 [facility] vancomycin 750 mg intravenous injection IV, Q12H, 0 Refill(s) No Longer Active 01/10/2014 [facility] Ipratropium [place] 0.2 MG/ML Inhalant Solution =1 vial, INHALATION, Q6H, 0 Refill(s) Active 01/10/2014 [facility] cefepime 1 g injection 1 gm, IV, Q12H, # 20 doses or times, 0 Refill(s) Inactive 01/10/2014 [facility] Albuterol 0.83 MG/ML Inhalant Solution 2.49 mg=3 mL, NEB, Q6H, # 120 ea, 0 Refill(s) Active 01/10/2014 [facility] Acetaminophen 650 mg, PO, Q4H, PRN fever, pain, 0 Refill(s)PRN fever, pain Active 01/10/2014 [facility] latanoprost 0.05 MG/ML Ophthalmic Solution [Xalatan] 1 drp, OPTH, Bedtime, # 3 ml, 0 Refill(s) Active 01/10/2014 [facility] omeprazole 40 mg oral delayed release capsule 40 mg=1 cap, PO, Daily, # 30 cap, 0 Refill(s) No Longer Active 01/10/2014 [facility] Zolpidem Tartrate 1 tablet Orally Active 10 MG Orally qhs [facility] Amitriptyline HCl TAKE ONE TABLET BY MOUTH EVERY NIGHT AT BEDTIME NEEDED NA Active 10 [facility] Pravastatin Sodium 1 tablet Orally Active 20 Orally Once a day [facility] Metoprolol Succinate ER 1 tablet Orally Active 25 MG Orally Once a day [facility] Lumigan 1 drop into affected eye in the evening Ophthalmic Active 0.01 % Ophthalmic Once a day [facility] Nystatin as directed Externally Active 100,000 Externally Twice a day [facility] Losartan Potassium-HCTZ take one tablet by mouth daily NA Active 100-12.5 [facility] Ventolin HFA INHALE TWO PUFFS BY MOUTH EVERY 4 HOURS NA Active 90 [facility] Pantoprazole Sodium TAKE ONE TABLET BY MOUTH DAILY NA Active 40 [facility] Amlodipine Besylate 1 tablet Orally Active 2.5 MG Orally Once a day [facility] Zolpidem Tartrate 1 tablet Orally Active 10 mg Orally qhs [facility] Metoprolol Succinate ER 1 tablet Orally Active 25 MG Orally Once a day [facility] Lumigan 1 drop into affected eye in the evening Ophthalmic Active 0.01 % Ophthalmic Once a day [facility] Nystop APPLY TWO TIMES A DAY DIRECTED NA Active 100,000 [facility] Synthroid 1 capsule Orally Active 75 Orally daily [facility] Levothyroxine Sodium not defined Oral Active 75 MCG Oral [facility] Aspirin Adult Low Dose 1 tablet Orally Active 81 MG Orally Once a day [facility] Pravastatin Sodium 1 tablet Orally No Longer Active 20 mg Orally Once a day [facility] Vitamin D (Ergocalciferol) 1 capsule Orally Active 50,000 Orally once per week [facility] Zolpidem Tartrate 1 tablet Orally Active 10 mg Orally qhs [facility] Amitriptyline HCl 1 tablet Orally Active 10 mg Orally at bedtime [facility] Clobetasol Prop Emollient Base Unknown Externally Active 0.05 % Externally [facility] Losartan Potassium-HCTZ 1 tablet Orally Active 100-12.5 Orally Once a day [facility] Nyamyc 1 application to affected area External Active [id number] UNIT/GM External prn [facility] Atorvastatin Calcium 1 tablet Orally Active 10 MG Orally Once a day [facility] Zolpidem Tartrate 1 tablet Orally Active 10 mg Orally qhs [facility] Clopidogrel Bisulfate 1 tablet Orally Active 75 MG Orally Once a day [facility] MetFORMIN HCl ER 1 tablet with evening meal Oral Active 500 mg Oral daily [facility] Nystop APPLY TO AFFECTED AREA(S) TWO TIMES A DAY FOR 8 DAYS NA Active 100,000 [facility] Arthrotec TAKE ONE TABLET BY MOUTH DAILY NA No Longer Active 75-200 [facility] Allergies, Adverse Reactions, Alerts Substance Category Reaction Severity Reaction type Status Date Reported Comments Source sulfa Adverse Reaction Info Not Available Adverse Reaction Active 11/09/2018 [facility] sulfa drugs Assertion Drug allergy Active [facility] Immunizations Immunization Date Given Site Status Last Updated Comments Source FLUZONE HD 65 & UP [id number] 08/04/2016 completed [facility] FLU 6 - 35 MTHS [id number] 02/25/2016 completed [facility] Hx influenza vaccine-unspecified 08/02/2013 [facility] 12/30/2011 completed [facility] Results Order Name Results Value Reference Range Date Interpretation Comments Source LIPIDS VLDL 26 06/14/2018 [facility] LIPIDS LDL (Calculated) 40 mg/dL <=99 mg/dL 06/14/2018 [facility] LIPIDS HDL 45 mg/dL >=61 mg/dL 06/14/2018 [facility] LIPIDS Trig 130 mg/dL <=149 mg/dL 06/14/2018 [facility] LIPIDS CHD Risk 2.47 3.90 - 5.80 06/14/2018 [facility] LIPIDS Chol 111 mg/dL <=199 mg/dL 06/14/2018 [facility] Brain wo contrast MRI Brain wo contrast MRI Clinical Indication: -Right-sided face numbness and slurred speech Comparison: CT dated 06/13/2018 TECHNIQUE: Multiplanar MRI of the brain is performed without gadolinium contrast. Axial T1, T2, FLAIR and diffusion weighted imaging is performed with sagittal FLAIR and coronal T2 FLAIR imaging. Contrast: None. FINDINGS: There is a 3 mm focus of diffusion restriction in the left precentral gyrus suspicious for acute/subacute infarct. There is no acute intracranial hemorrhage or mass effect. There are moderate involutional changes in the brain. Multiple foci of T2 hyperintensity are noted in the bilateral periventricular region secondary to mild microvascular white matter disease. 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 There is no extra-axial collection. There is no hydrocephalus. The visualized intracranial flow voids are unremarkable. The bilateral CP angle cisterns are clear. The cervicomedullary junction is within normal limits. The visualized orbits, sella and suprasellar region are unremarkable. The visualized paranasal sinuses and mastoids are clear IMPRESSION: 3 mm focus of diffusion restriction in the left precentral gyrus suspicious for acute/subacute infarct. No intracranial hemorrhage or mass effect. Mild microvascular white matter disease. was notified at 5:08 PM on 06/14/2018. ROBERT: BARBER 06/14/2018 - - Read by: Yani Helton MD Dictated Date/time: 06/14/18 16:49 Electronically Signed by: Yani Helton MD 06/14/18 17:27 FINAL REPORT [facility] CHEM PANEL eGFR 66 mL/min/1.73m2 06/14/2018 Result Comment: The eGFR is calculated using the [...] from the National Kidney Disease Education Program (NKDEP) which additionally recommends that when the eGFR is used in patients with extremes of body mass index for purposes of drug dosing, the eGFR should be multiplied by the estimated BMI. [facility] CHEM PANEL CO2 26 meq/L 24 - 32 06/14/2018 [facility] CHEM PANEL Chloride Lvl 107 meq/L 95 - 109 06/14/2018 [facility] CHEM PANEL Calcium Lvl 8.4 mg/dL 8.5 - 10.5 06/14/2018 [facility] CHEM PANEL AGAP 12.1 meq/L 10.0 - 20.0 06/14/2018 [facility] CHEM PANEL Potassium Lvl 3.1 meq/L 3.5 - 5.1 06/14/2018 [facility] CHEM PANEL Sodium Lvl 142 meq/L 135 - 145 06/14/2018 [facility] CHEM PANEL Creatinine Lvl 0.83 mg/dL 0.50 - 1.40 06/14/2018 [facility] CHEM PANEL BUN 16 mg/dL 7 - 22 06/14/2018 [facility] CHEM PANEL Glucose Lvl 93 mg/dL 70 - 99 06/14/2018 [facility] HEMATOLOGY Basophils 0.5 % 0.0 - 1.0 06/14/2018 [facility] HEMATOLOGY Neutrophils # 4.4 K/CMM 1.5 - 8.1 06/14/2018 [facility] HEMATOLOGY Lymphocytes # 2.5 K/CMM 1.0 - 5.5 06/14/2018 [facility] HEMATOLOGY Monocytes # 0.6 K/CMM 0.0 - 0.8 06/14/2018 [facility] HEMATOLOGY Eosinophils # 0.3 K/CMM 0.0 - 0.5 06/14/2018 [facility] HEMATOLOGY Monocytes 7.9 % 2.0 - 12.0 06/14/2018 [facility] HEMATOLOGY Eosinophils 3.4 % 0.0 - 4.0 06/14/2018 [facility] Lymphocytes 31.8 % 20.0 - 40.0 06/14/2018 [facility] Segs 56.4 % 45.0 - 75.0 06/14/2018 [facility] MPV 8.2 fL 7.4 - 10.4 06/14/2018 [facility] MCV 88.6 fL 80.0 - 98.0 06/14/2018 [facility] Hct 30.4 % 36.0 - 48.0 06/14/2018 [facility] MCHC 33.2 g/dL 32.0 - 36.0 06/14/2018 [facility] MCH 29.5 pg 27.0 - 31.0 06/14/2018 [facility] Platelet 208 K/CMM 133 - 450 06/14/2018 [facility] RDW 13.4 % 11.5 - 14.5 06/14/2018 [facility] WBC 7.8 K/CMM 3.7 - 10.4 06/14/2018 [facility] Hgb 10.1 g/dL 12.0 - 16.0 06/14/2018 [facility] RBC 3.43 M/CMM 4.20 - 5.40 06/14/2018 [facility] URINE AND STOOL UA Urobilinogen <=1.0 mg/dL 0.1 - 1.0 06/14/2018 [facility] URINE AND STOOL UA Color Ltyellow 06/14/2018 [facility] URINE AND STOOL UA Sq Epi None Seen 06/14/2018 [facility] URINE AND STOOL UA Blood Small *ABN* (06/13/18 9:02 PM) Negative 06/14/2018 [facility] URINE AND STOOL UA RBC 1 /HPF 0 - 2 06/14/2018 [facility] URINE AND STOOL UA Bacteria Occasional /HPF None Seen /HPF 06/14/2018 [facility] URINE AND STOOL UA WBC 2 /HPF 0 - 5 06/14/2018 [facility] URINE AND STOOL UA Leuk Est Trace *ABN* (06/13/18 9:02 PM) Negative 06/14/2018 [facility] URINE AND STOOL UA Bili Negative *NA* (06/13/18 9:02 PM) Negative 06/14/2018 [facility] URINE AND STOOL UA Nitrite Negative (06/13/18 9:02 PM) Negative 06/14/2018 [facility] URINE AND STOOL UA Turbidity Clear (06/13/18 9:02 PM) Clear 06/14/2018 [facility] URINE AND STOOL UA Spec Grav 1.009 <=1.030 06/14/2018 [facility] URINE AND STOOL UA Glucose Negative mg/dL Negative mg/dL 06/14/2018 [facility] URINE AND STOOL UA Ketones Negative mg/dL Negative mg/dL 06/14/2018 [facility] URINE AND STOOL UA Protein Negative mg/dL Negative mg/dL 06/14/2018 [facility] URINE AND STOOL UA pH 6.0 5.0 - 8.0 06/14/2018 [facility] Culture: Urine <10,000 CFU/mL Skin Yoanna 06/14/2018 [facility] CARDIAC ENZYMES Total CK 96 unit/L 12 - 191 06/14/2018 [facility] CARDIAC ENZYMES Troponin-I null 0.00 - 0.40 06/14/2018 [facility] CHEM PANEL eGFR 49 mL/min/1.73m2 06/14/2018 Result Comment: The eGFR is calculated using the [...] from the National Kidney Disease Education Program (NKDEP) which additionally recommends that when the eGFR is used in patients with extremes of body mass index for purposes of drug dosing, the eGFR should be multiplied by the estimated BMI. [facility] CHEM PANEL Bili Total 0.2 mg/dL 0.2 - 1.3 06/14/2018 [facility] CHEM PANEL BUN 16 mg/dL 7 - 22 06/14/2018 [facility] CHEM PANEL Glucose Lvl 101 mg/dL 70 - 99 06/14/2018 [facility] CHEM PANEL Creatinine Lvl 1.07 mg/dL 0.50 - 1.40 06/14/2018 [facility] CHEM PANEL Chloride Lvl 107 meq/L 95 - 109 06/14/2018 [facility] CHEM PANEL Potassium Lvl 3.3 meq/L 3.5 - 5.1 06/14/2018 [facility] CHEM PANEL Sodium Lvl 142 meq/L 135 - 145 06/14/2018 [facility] CHEM PANEL Calcium Lvl 8.8 mg/dL 8.5 - 10.5 06/14/2018 [facility] CHEM PANEL CO2 28 meq/L 24 - 32 06/14/2018 [facility] CHEM PANEL ALT 28 unit/L 0 - 65 06/14/2018 [facility] CHEM PANEL Albumin Lvl 3.3 g/dL 3.5 - 5.0 06/14/2018 [facility] CHEM PANEL AST 20 unit/L 0 - 37 06/14/2018 [facility] CHEM PANEL Alk Phos 124 unit/L 39 - 136 06/14/2018 [facility] CHEM PANEL Total Protein 6.8 g/dL 6.4 - 8.4 06/14/2018 [facility] CHEM PANEL AGAP 10.3 meq/L 10.0 - 20.0 06/14/2018 [facility] CHEM PANEL B/C Ratio 15 6 - 25 06/14/2018 [facility] CHEM PANEL Globulin 3.5 g/dL 2.7 - 4.2 06/14/2018 [facility] CHEM PANEL A/G Ratio 0.9 0.7 - 1.6 06/14/2018 [facility] HEMATOLOGY Monocytes # 0.6 K/CMM 0.0 - 0.8 06/14/2018 [facility] HEMATOLOGY Eosinophils # 0.2 K/CMM 0.0 - 0.5 06/14/2018 [facility] HEMATOLOGY Monocytes 8.2 % 2.0 - 12.0 06/14/2018 [facility] HEMATOLOGY Eosinophils 3.1 % 0.0 - 4.0 06/14/2018 [facility] HEMATOLOGY Basophils # 0.1 K/CMM 0.0 - 0.2 06/14/2018 [facility] HEMATOLOGY Basophils 0.7 % 0.0 - 1.0 06/14/2018 [facility] HEMATOLOGY Neutrophils # 4.6 K/CMM 1.5 - 8.1 06/14/2018 [facility] HEMATOLOGY Lymphocytes # 2.4 K/CMM 1.0 - 5.5 06/14/2018 [facility] HEMATOLOGY Segs 58.0 % 45.0 - 75.0 06/14/2018 [facility] HEMATOLOGY Lymphocytes 30.0 % 20.0 - 40.0 06/14/2018 [facility] PT 14.5 s 12.0 - 14.7 06/14/2018 [facility] INR 1.13 0.85 - 1.17 06/14/2018 [facility] PTT 30.2 s 22.9 - 35.8 06/14/2018 [facility] RDW 13.6 % 11.5 - 14.5 06/14/2018 [facility] Platelet 216 K/CMM 133 - 450 06/14/2018 [facility] MCHC 33.9 g/dL 32.0 - 36.0 06/14/2018 [facility] MCH 30.4 pg 27.0 - 31.0 06/14/2018 [facility] Hct 34.2 % 36.0 - 48.0 06/14/2018 [facility] WBC 7.9 K/CMM 3.7 - 10.4 06/14/2018 [facility] MCV 89.6 fL 80.0 - 98.0 06/14/2018 [facility] Hgb 11.6 g/dL 12.0 - 16.0 06/14/2018 [facility] RBC 3.81 M/CMM 4.20 - 5.40 06/14/2018 [facility] MPV 7.9 fL 7.4 - 10.4 06/14/2018 [facility] Carotid artery Doppler bilat US Carotid artery Doppler bilat US Patient Name: MOODY LANE : 1935; Age: 82 years y/o Female MR: [id number] CAROTID DOPPLER Clinical Indication: Transient cerebral ischemic attack workup. Comparison: None. A noncontrast cranial computed tomography scan from yesterday was reviewed. TECHNIQUE: Connolly-scale, color Doppler and spectral Doppler of the carotid arteries was performed. Any reported ICA stenoses indirectly reference the distal internal carotid diameter as the denominator for the stenosis measurement, utilizing consensus panel criteria. FINDINGS: * CONNOLLY SCALE AND COLOR-FLOW: No significant plaquing or stenosis. * VELOCITY MEASUREMENTS RIGHT CAROTID SYSTEM : -Right internal carotid artery peak systolic velocity: Within normal limits, 111 cm/sec -ICA/CCA ratio (systolic velocity ratio): Within normal limits, 0.9 LEFT CAROTID SYSTEM : -Left internal carotid artery peak systolic velocity: Within normal limits, 119 cm/sec -ICA/CCA ratio (systolic velocity ratio): Within normal limits, 0.9 * VERTEBRAL ARTERIES: Both vertebral arteries were demonstrated. There is antegrade flow within both vertebral arteries. IMPRESSION: 1. Carotid Doppler within normal limits. There is no evidence of significant plaquing or stenosis. Consensus panel Doppler US criteria for diagnosis of ICA stenosis: Stenosis (%) ICA PSV (cm/sec) ICA/CCA ratio <50 <125 <2.0 50-69 125-230 2.0-4.0 >70 but less than >230 >4.0 near occlusion Near occlusion High, low, or Variable undetectable SL: [id number] 06/13/2018 - - Read by: Tomi Flores MD Dictated Date/time: 06/14/18 04:05 Electronically Signed by: Tomi Flores MD 06/14/18 04:06 FINAL REPORT [facility] Brain wo contrast CT Brain wo contrast CT EXAM: CT BRAIN WITHOUT CONTRAST DATE: 06/13/2018 7:18 PM CDT INDICATION: - stroke like symptoms, onset 12:30 pm ADDITIONAL INFORMATION AND CT DLP: 859.11 mGy-cm. COMPARISON: CT head of 05/06/2016. TECHNIQUE: Routine axial CT images of the brain were obtained. IV contrast: None. FINDINGS: Non-contrast images of the head demonstrate no edema, hemorrhage, mass lesion or other acute intracranial abnormality. Diffuse cerebral atrophy and mild chronic small vessel ischemic change. Villeda- white matter distinction is preserved. The ventricles are stable. The basal cisterns and sulci are normal in size. Marked atherosclerotic calcification of the distal internal carotid and vertebral arteries. The paranasal sinuses, orbits and mastoids are unremarkable. IMPRESSION: 1. No definite acute infarct or intracranial hemorrhage detected. 2. Diffuse cerebral atrophy and mild chronic small vessel ischemic change. If there is further concern for intracranial pathology or acute stroke, MRI of the brain may be performed for complete assessment. SL: [id number] 06/13/2018 - - Read by: Hu Goldberg MD Dictated Date/time: 06/13/18 19:39 Electronically Signed by: Hu Goldberg MD 06/13/18 19:40 FINAL REPORT [facility] Chest 1view DX Chest 1view DX Clinical Indication: - cp; Comparison: May 06, 2016 FINDINGS: AP chest radiographs shows normal lung volumes without interstitial or airspace opacities, pleural effusions or pneumothorax. The heart size and pulmonary vasculature are normal. The trachea is midline. There are no clinically significant osseous abnormalities noted. IMPRESSION: No chest radiographic evidence of acute cardiopulmonary disease. SL: [id number] 06/13/2018 - - Read by: Clinton Davis MD Dictated Date/time: 06/13/18 20:13 Electronically Signed by: Clinton Davis MD 06/13/18 20:13 FINAL REPORT [facility] Soft Tissue Head/Neck US Soft Tissue Head/Neck US Soft Tissue Head/Neck US CLINICAL HISTORY: - neck mass left neck. COMPARISON: None TECHNIQUE: Sagittal and transverse images of the left neck in the parotid region and for comparison right parotid region were performed with a linear high- frequency transducer. Static images are submitted for review. FINDINGS: There is relative atrophy of both parotid glands. Multiple simple cysts and complex foci are visualized in the left parotid gland. These may represent cysts, lymph nodes and other nonspecific solid lesions. No discrete lesion is visualized in the right parotid gland. IMPRESSION: Multiple cystic and solid lesions are visualized in the left parotid gland. Differential considerations include neoplasm. Further evaluation with contrast CT of neck is recommended. Relative atrophy of both parotid glands. SL: [id number] 04/21/2017 - - Read by: Nav Ghotra MD Dictated Date/time: 04/21/17 15:10 Electronically Signed by: Nav Ghotra MD 04/21/17 15:15 FINAL REPORT [facility] Shoulder wo contrast MRI Shoulder wo contrast MRI EXAM: MRI of the right shoulder without contrast INDICATION: Right shoulder pain status post fall COMPARISON: Plain films of the bilateral shoulders from 05/06/2016 TECHNIQUE: Multiplanar, multisequence magnetic resonance imaging of the right shoulder was performed without the administration of intravenous gadolinium contrast. FINDINGS: Glenohumeral joint: Negative for acute bony fracture or joint dislocation. Prominent subchondral cystic change along the posterior superior glenoid fossa is seen. No labral tear or capsular abnormality is seen. There is no high-grade chondral defect of the humeral head or glenoid fossa. Osseous acromion complex: The acromion is type II in morphology and shows horizontal orientation without significant narrowing of the supraspinatus outlet. No os acromiale is seen. Mild AC joint osteoarthrosis is noted. Rotator cuff tendons: [id number] supraspinatus and infraspinatus tendinosis is seen with mild subcortical cystic changes of the underlying greater tuberosity at the footprint. Negative for rotator cuff tear. There is an ovoid focus of signal void measuring 8 mm superficial to the distal infraspinatus tendon at the footprint, compatible with hydroxyapatite deposition related to calcific tendinosis. The subscapularis tendon is intact. Biceps tendon: Intact and without subluxation or dislocation. Soft tissues: Mild feathery hyperintensity along the superficial aspect of the teres minor muscle belly and myotendinous junction is seen with small amount of overlying perifascial edema and fluid. Mild edema between the supraspinatus and infraspinatus myotendinous junction is is also seen, nonspecific. No muscular atrophy is seen. IMPRESSION: 1. [id number] supraspinatus and infraspinatus tendinosis. Negative for rotator cuff tear. 2. Calcific tendinosis with 8 mm focus of hydroxyapatite deposition superficial to the distal infraspinatus tendon at the footprint. 3. Mild signal abnormality of the superficial aspect of the teres minor muscle belly and myotendinous junction with mild overlying edema and fluid, suspicious for low-grade strain. 4. Mild AC joint osteoarthrosis. 5. No acute bony abnormality of the right shoulder. SL: [id number] 05/07/2016 - - Read by: Tremaine Charles MD Dictated Date/time: 05/07/16 19:27 Electronically Signed by: Tremaine Charles MD 05/07/16 19:33 FINAL REPORT [facility] CARDIAC ENZYMES CK MB 3.3 ng/mL 0.5 - 3.6 05/06/2016 [facility] CARDIAC ENZYMES CK MB Index 1.1 0.0 - 2.5 05/06/2016 [facility] CARDIAC ENZYMES Troponin-I null 0.00 - 0.40 05/06/2016 [facility] CARDIAC ENZYMES Total CK 305 unit/L 12 - 191 05/06/2016 [facility] CARDIAC ENZYMES Troponin-I null 0.00 - 0.40 05/06/2016 [facility] CARDIAC ENZYMES Total CK 294 unit/L 12 - 191 05/06/2016 [facility] CARDIAC ENZYMES CK MB Index 1.4 0.0 - 2.5 05/06/2016 [facility] CARDIAC ENZYMES CK MB 4.2 ng/mL 0.5 - 3.6 05/06/2016 [facility] Carotid artery Doppler bilat US Carotid artery Doppler bilat US Patient Name: MOODY LANE : 1935; Age: 80 years y/o Female MR: [id number] Study: Carotid artery Doppler bilat US 05/06/2016 6:14 AM CDT Ordering Physician: Joe Sharif MD Clinical Indication: Syncope and collapse; Comparison: None TECHNIQUE: Connolly-scale, color Doppler and spectral Doppler of the carotid arteries was performed. Any reported ICA stenoses indirectly reference the distal internal carotid diameter as the denominator for the stenosis measurement, utilizing consensus panel criteria. FINDINGS: RIGHT: Plaque is noted in the right bulb region. ICA PSV 79 cm/sec CCA PSV 131 cm/sec ICA/CCA ratio 0.88 Vertebral flow is antegrade. External carotid artery is patent. LEFT: Plaque is noted in the left bulb region. ICA PSV 63 cm/sec CCA PSV 90 cm/sec ICA/CCA ratio 0.86 Vertebral flow is antegrade. External carotid artery is patent. IMPRESSION: 1. No hemodynamically significant stenosis identified to either carotid artery. Consensus panel Doppler US criteria for diagnosis of ICA stenosis: Stenosis (%) ICA PSV (cm/sec) ICA/CCA ratio <50 <125 <2.0 50-69 125-230 2.0-4.0 >70 but less than >230 >4.0 near occlusion Near occlusion High, low, or Variable undetectable SL: [id number] 05/06/2016 - - Read by: Enmanuel Mathews MD Dictated Date/time: 05/06/16 08:14 Electronically Signed by: Enmanuel Mathews MD 05/06/16 08:17 FINAL REPORT [facility] CARDIAC ENZYMES CK MB Index 1.5 0.0 - 2.5 05/06/2016 [facility] CARDIAC ENZYMES Troponin-I null 0.00 - 0.40 05/06/2016 [facility] CARDIAC ENZYMES CK MB 3.5 ng/mL 0.5 - 3.6 05/06/2016 [facility] CARDIAC ENZYMES Total CK 229 unit/L 12 - 191 05/06/2016 [facility] CHEM PANEL eGFR 49 mL/min/1.73m2 05/06/2016 Result Comment: The eGFR is calculated using the [...] from the National Kidney Disease Education Program (NKDEP) which additionally recommends that when the eGFR is used in patients with extremes of body mass index for purposes of drug dosing, the eGFR should be multiplied by the estimated BMI. [facility] CHEM PANEL BUN 16 mg/dL 7 - 22 05/06/2016 [facility] CHEM PANEL Creatinine Lvl 1.08 mg/dL 0.50 - 1.40 05/06/2016 [facility] CHEM PANEL Glucose Lvl 127 mg/dL 70 - 99 05/06/2016 [facility] CHEM PANEL AGAP 12.1 meq/L 10.0 - 20.0 05/06/2016 [facility] CHEM PANEL Calcium Lvl 8.1 mg/dL 8.5 - 10.5 05/06/2016 [facility] CHEM PANEL Chloride Lvl 105 meq/L 95 - 109 05/06/2016 [facility] CHEM PANEL CO2 24 meq/L 24 - 32 05/06/2016 [facility] CHEM PANEL Sodium Lvl 138 meq/L 135 - 145 05/06/2016 [facility] CHEM PANEL Potassium Lvl 3.1 meq/L 3.5 - 5.1 05/06/2016 [facility] HEMATOLOGY Basophils # 0.1 K/CMM 0.0 - 0.2 05/06/2016 [facility] HEMATOLOGY Segs-Bands # 8.4 K/CMM 1.5 - 8.1 05/06/2016 [facility] Basophils 0.9 % 0.0 - 1.0 05/06/2016 [facility] Lymphocytes # 1.8 K/CMM 1.0 - 5.5 05/06/2016 [facility] Monocytes # 0.7 K/CMM 0.0 - 0.8 05/06/2016 [facility] Eosinophils 1.7 % 0.0 - 4.0 05/06/2016 [facility] Eosinophils # 0.2 K/CMM 0.0 - 0.5 05/06/2016 [facility] Segs 75.2 % 45.0 - 75.0 05/06/2016 [facility] Lymphocytes 15.8 % 20.0 - 40.0 05/06/2016 [facility] Monocytes 6.4 % 2.0 - 12.0 05/06/2016 [facility] Platelet 218 K/CMM 133 - 450 05/06/2016 [facility] MPV 8.2 fL 7.4 - 10.4 05/06/2016 [facility] RDW 13.1 % 11.5 - 14.5 05/06/2016 [facility] MCV 87.4 fL 80.0 - 98.0 05/06/2016 [facility] Hct 36.9 % 36.0 - 48.0 05/06/2016 [facility] MCHC 32.0 g/dL 32.0 - 36.0 05/06/2016 [facility] MCH 28.0 pg 27.0 - 31.0 05/06/2016 [facility] Hgb 11.8 g/dL 12.0 - 16.0 05/06/2016 [facility] WBC 11.2 K/CMM 3.7 - 10.4 05/06/2016 [facility] RBC 4.23 M/CMM 4.20 - 5.40 05/06/2016 [facility] PT 15.0 s 12.0 - 14.7 05/06/2016 [facility] INR 1.15 0.85 - 1.17 05/06/2016 [facility] PTT 27.7 s 22.9 - 35.8 05/06/2016 [facility] Spine cervical wo contrast CT Spine cervical wo contrast CT CT CERVICAL AND THORACIC SPINE WITHOUT CONTRAST INDICATION: Posttraumatic cervical spine and thoracic spine pain COMPARISON: CT cervical spine 10/20/2014 DISCUSSION: CERVICAL SPINE: There are no acute fractures or subluxations. Vertebral body alignment is within normal limits. There is grossly stable moderate to advanced cervical spondylosis, resulting in foraminal stenosis at multiple levels. There is potential mild or moderate spinal canal stenosis at C4-C5. Multi nodularity of the thyroid and marked fatty atrophy of the bilateral parotid glands is noted. Ligament, spinal cord, and/or vascular abnormalities cannot be excluded on the basis of this examination. THORACIC SPINE: Alignment: Vertebral body alignment is within normal limits. Vertebral bodies: There are no compression or displaced fractures. Paraspinal soft tissues: The esophagus is dilated and contains debris, suggesting achalasia. Coronary artery calcifications are noted. There is a 2.3 cm cyst of the left hepatic lobe. Disc spaces, spinal canal and foramina: There is mild to moderate thoracic spondylosis, potentially resulting in foraminal stenosis at multiple levels. Grossly, there is no appreciably significant spinal canal stenosis. IMPRESSION: 1. No acute cervical spine or thoracic spine abnormalities are visualized. 2. Cervical and thoracic spondylosis, as described. SL:[id number] 05/06/2016 - - Read by: Theo Chandler MD Dictated Date/time: 05/06/16 01:44 Electronically Signed by: Theo Chandler MD 05/06/16 01:58 FINAL REPORT [facility] Spine thoracic wo contrast CT Spine thoracic wo contrast CT CT CERVICAL AND THORACIC SPINE WITHOUT CONTRAST INDICATION: Posttraumatic cervical spine and thoracic spine pain COMPARISON: CT cervical spine 10/20/2014 DISCUSSION: CERVICAL SPINE: There are no acute fractures or subluxations. Vertebral body alignment is within normal limits. There is grossly stable moderate to advanced cervical spondylosis, resulting in foraminal stenosis at multiple levels. There is potential mild or moderate spinal canal stenosis at C4-C5. Multi nodularity of the thyroid and marked fatty atrophy of the bilateral parotid glands is noted. Ligament, spinal cord, and/or vascular abnormalities cannot be excluded on the basis of this examination. THORACIC SPINE: Alignment: Vertebral body alignment is within normal limits. Vertebral bodies: There are no compression or displaced fractures. Paraspinal soft tissues: The esophagus is dilated and contains debris, suggesting achalasia. Coronary artery calcifications are noted. There is a 2.3 cm cyst of the left hepatic lobe. Disc spaces, spinal canal and foramina: There is mild to moderate thoracic spondylosis, potentially resulting in foraminal stenosis at multiple levels. Grossly, there is no appreciably significant spinal canal stenosis. IMPRESSION: 1. No acute cervical spine or thoracic spine abnormalities are visualized. 2. Cervical and thoracic spondylosis, as described. SL:05/06/2016 - - Read by: Theo Chandler MD Dictated Date/time: 05/06/16 01:44 Electronically Signed by: Theo Chandler MD 05/06/16 01:58 FINAL REPORT [facility] Brain wo contrast CT Brain wo contrast CT CT BRAIN WITHOUT CONTRAST INDICATION: Syncope, dizziness, posttraumatic headache COMPARISON: CT brain 10/20/2014 DISCUSSION: There is a large right frontal scalp hematoma. The calvarium is intact. There are generalized involutional changes of the brain and microangiopathic changes of the white matter. There is no evidence of acute vascular insults, space occupying lesions, hemorrhage, hydrocephalus, midline shift, or extra-axial fluid collections. IMPRESSION: Chronic age-related changes of the brain. No acute intracranial abnormalities are visualized. SL:05/06/2016 - - Read by: Theo Chandler MD Dictated Date/time: 05/06/16 01:41 Electronically Signed by: Theo Chandler MD 05/06/16 01:43 FINAL REPORT [facility] Chest 1view DX Chest 1view DX EXAM: XR CHEST 1 VIEW DATE: 05/06/2016 12:11 AM CDT INDICATION: Syncope COMPARISON: 10/20/2014 TECHNIQUE: Frontal chest radiograph FINDINGS: The lungs are clear. The cardiomediastinal silhouette is normal. There is no acute bony abnormality. IMPRESSION: No acute abnormality SL: [id number] 05/06/2016 - - Read by: Fox Alvarenga Dictated Date/time: 05/06/16 00:35 Electronically Signed by: Fox Alvarenga 05/06/16 00:36 FINAL REPORT [facility] Shoulder 2+ Views Bilateral DX Shoulder 2+ Views Bilateral DX Clinical Indication: Bilateral shoulder pain; Comparison: None FINDINGS: The 3 views of the right and left shoulder show normal alignment at the glenohumeral joint. There are no fractures. The acromioclavicular and coracoclavicular spaces are within normal limits. The visualized scapula and clavicle are intact. There are no radiopaque foreign bodies. The bones are osteopenic. There is no soft tissue swelling. There are mild AC joint degenerative changes. A calcific density in the region of the right supraspinatus insertion likely represents calcific tendinosis. If there is further concern, followup radiographs or MRI of the shoulder may be performed for complete assessment. IMPRESSION: 1. No acute bony abnormality in right or left shoulder. 2. Right supraspinatus calcific tendinosis. 3. Osteopenia. SL: WR4Mary Alice 05/06/2016 - - Read by: Fox Alvarenga Dictated Date/time: 05/06/16 00:36 Electronically Signed by: Fox Alvarenga 05/06/16 00:38 FINAL REPORT [facility] Digital Mammo Screening Sukhdeep RI Digital Mammo Screening Sukhdeep RI - DIGITAL MAMMO SCREENING SUKHDEEP MA BILATERAL DIGITAL SCREENING MAMMOGRAM WITH CAD: 10/11/2015 CLINICAL: Other Screening Mammogram. Current study was evaluated with a Computer Aided Detection (CAD) system. Exam is read without the benefit of comparison films. Patient states their prior mammogram was performed over 10 years ago and are no longer available. There are scattered fibroglandular densities in both breasts. There are benign vascular calcifications in both breasts. There also are benign scattered calcifications in both breasts. No significant masses, calcifications, or other findings are seen in either breast. IMPRESSION: BENIGN There is no mammographic evidence of malignancy. A 1 year screening mammogram is recommended. 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 This aids in establishing benignity. The patient should make additional efforts to locate their prior exams. An addendum will be made if additional films are provided. Soledad coronel/indira:10/14/2015 09:21:49 [employer] Mainframe Developer: Preethi Correia, [facility] This exam was dictated and interpreted by [id number] for [facility]. letter sent: Bilateral Benign Mammogram BI-RADS: 2 Benign 10/11/2015 - - Read by: Soledad Cloud MD Dictated Date/time: 10/14/15 09:21 Electronically Signed by: Soledad Cloud MD 10/14/15 09:21 FINAL REPORT [facility] BLOOD BANK RESULTS ABO/Rh A POS 10/20/2014 [facility] BLOOD BANK RESULTS Antibody Scrn Negative (10/20/14 2:32 AM) 10/20/2014 [facility] CHEM PANEL Lactic Acid WB 1.5 mmol/L 0.5 - 2.2 10/20/2014 [facility] CHEM PANEL eGFR 54 mL/min/1.73m2 10/20/2014 1Result Comment: The eGFR is calculated using [...] from the National Kidney Disease Education Program (NKDEP) which additionally recommends that when the eGFR is used in patients with extremes of body mass index for purposes of drug dosing, the eGFR should be multiplied by the estimated BMI. [facility] CHEM PANEL CO2 27 meq/L 24 - 32 10/20/2014 [facility] CHEM PANEL Glucose Lvl 138 mg/dL 70 - 99 10/20/2014 2Interpretive Data: Adult reference range values reflect the clinical guidelines of the [place] [employer]. [facility] CHEM PANEL BUN 15 mg/dL 7 - 22 10/20/2014 [facility] CHEM PANEL Sodium Lvl 140 meq/L 135 - 145 10/20/2014 [facility] CHEM PANEL Chloride Lvl 103 meq/L 95 - 109 10/20/2014 [facility] CHEM PANEL Creatinine Lvl 1.0 mg/dL 0.5 - 1.4 10/20/2014 [facility] CHEM PANEL Potassium Lvl 3.8 meq/L 3.5 - 5.1 10/20/2014 [facility] CHEM PANEL Calcium Lvl 9.0 mg/dL 8.5 - 10.5 10/20/2014 [facility] CHEM PANEL AGAP 13.8 meq/L 10.0 - 20.0 10/20/2014 [facility] CHEM PANEL Phosphorus 3.0 mg/dL 2.5 - 4.5 10/20/2014 [facility] CHEM PANEL Magnesium Lvl 1.8 mg/dL 1.8 - 2.4 10/20/2014 [facility] HEMATOLOGY Basophils # 0.0 K/CMM 0.0 - 0.2 10/20/2014 [facility] HEMATOLOGY Monocytes # 0.8 K/CMM 0.0 - 0.8 10/20/2014 [facility] HEMATOLOGY Eosinophils # 0.5 K/CMM 0.0 - 0.5 10/20/2014 [facility] HEMATOLOGY Lymphocytes # 2.3 K/CMM 1.0 - 5.5 10/20/2014 [facility] HEMATOLOGY Segs-Bands # 10.5 K/CMM 1.5 - 8.1 10/20/2014 [facility] HEMATOLOGY Basophils 0.0 % 0.0 - 1.0 10/20/2014 [facility] HEMATOLOGY Eosinophils 3.8 % 0.0 - 4.0 10/20/2014 [facility] HEMATOLOGY Monocytes 5.9 % 2.0 - 12.0 10/20/2014 [facility] HEMATOLOGY Lymphocytes 16.3 % 20.0 - 40.0 10/20/2014 [facility] HEMATOLOGY Segs 74.0 % 45.0 - 75.0 10/20/2014 [facility] HEMATOLOGY Hgb 11.7 g/dL 12.0 - 16.0 10/20/2014 [facility] HEMATOLOGY MCHC 32.6 g/dL 32.0 - 36.0 10/20/2014 [facility] HEMATOLOGY MCH 28.7 pg 27.0 - 31.0 10/20/2014 [facility] HEMATOLOGY Hct 35.8 % 36.0 - 48.0 10/20/2014 [facility] HEMATOLOGY MCV 88.0 fL 80.0 - 98.0 10/20/2014 [facility] HEMATOLOGY WBC 14.1 K/CMM 3.7 - 10.4 10/20/2014 [facility] HEMATOLOGY RBC 4.06 M/CMM 4.20 - 5.40 10/20/2014 [facility] HEMATOLOGY MPV 8.2 fL 7.4 - 10.4 10/20/2014 [facility] HEMATOLOGY Platelet 207 K/CMM 133 - 450 10/20/2014 [facility] HEMATOLOGY RDW 14.0 % 11.5 - 14.5 10/20/2014 [facility] HEMATOLOGY Estimated % Lysis 1.3 % 0.0 - 7.5 10/20/2014 [facility] HEMATOLOGY G-value 11.4 K d/sc 5.0 - 11.6 10/20/2014 [facility] HEMATOLOGY Max Amp 70 mm 52 - 71 10/20/2014 [facility] HEMATOLOGY Rapid TEG Sample Type Citrated Whole Blood 10/20/2014 [facility] HEMATOLOGY ACT (TEG) 128 s 86 - 118 10/20/2014 [facility] HEMATOLOGY Angle 76 degrees 64 - 80 10/20/2014 [facility] HEMATOLOGY K-time 1.0 min 0.6 - 2.3 10/20/2014 [facility] HEMATOLOGY R-time 0.8 min 0.4 - 0.7 10/20/2014 [facility] HEMATOLOGY Split Point 0.7 min 10/20/2014 [facility] TOXICOLOGY Etoh (%) null 10/20/2014 3Interpretive Data: Ethanol testing results should be used for medical purposes only. Negative Range: <0.003% Toxic Range: >0.25% [facility] TOXICOLOGY Ethanol Lvl null 10/20/2014 4Interpretive Data: Negative Range: <3 mg/dL Toxic Range: >250 mg/dL [facility] Brain wo contrast CT Brain wo contrast CT EXAM: CT BRAIN WITHOUT CONTRAST DATE: 10/20/2014 INDICATION: Head pain, fall TECHNIQUE: Noncontrast axial imaging was obtained from the vertex to the skull base. COMPARISON: CT brain from 05/22/2011. FINDINGS: Right right occipital scalp hematoma and laceration. No acute fracture. Punctate skin/subcutaneous debris. No acute intracranial hemorrhage or extra-axial collection. Connolly-white matter interface is maintained. No hydrocephalus or midline shift. 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 IMPRESSION: Superficial injuries without acute intracranial abnormality. 10/20/2014 - - Read by: Froilan Robbins MD Dictated Date/time: 10/20/14 10:47 Electronically Signed by: Froilan Robbins MD 10/20/14 10:58 FINAL REPORT [facility] Spine cervical wo contrast CT (ER) Spine cervical wo contrast CT (ER) EXAM: CT CERVICAL SPINE WITHOUT CONTRAST. DATE: Oct 20, 2014 03:14:00 AM. INDICATION: FALL. COMPARISON: None available TECHNIQUE: Volumetric acquisition of the cervical spine was obtained with axial, coronal and sagittal reformatted images, without contrast. DISCUSSION: No acute fracture, malalignment or other acute bony abnormality of the cervical spine is identified. The transverse foramina are intact. Multilevel chronic degenerative changes are seen within the cervical spine centered at C4-C5 including moderate to severe degenerative disc disease, uncovertebral joint hypertrophy, anterior and posterior osteophytosis, and at least mild facet hypertrophy. These chronic degenerative changes result in mild to moderate bilateral C4-C5 and C5-C6, and right C6-C7 neuroforaminal narrowing. No traumatic soft tissue abnormality. A 0.8 cm hypodense nodule is seen within the left thyroid lobe. No pneumothorax. IMPRESSION: 1. No acute fracture or malalignment of the cervical spine. 2. Multilevel advanced chronic degenerative changes centered at C4-C5 with mild to moderate bilateral C4-C5 and C5-C6, and right C6-C7 neuroforaminal narrowing. 10/20/2014 - - This report was dictated by a Contaminated Land Consultant/Fellow. I have personally reviewed the images as well as the Resident's interpretation and agree with the findings. Read by: Ash Moctezuma MD Resident: Ash Moctezuma MD Dictated Date/time: 10/20/14 03:47 Electronically Signed by: Coni Hurtado MD 10/20/14 07:47 FINAL REPORT [facility] Chest/Abdomen/Pelvis w IV contrast CT Chest/Abdomen/Pelvis w IV contrast CT EXAM: CT CHEST WITH IV CONTRAST. EXAM: CT ABDOMEN AND PELVIS WITH IV CONTRAST. DATE: Oct 20, 2014 03:14:00 AM INDICATION: FALL. COMPARISON: None. TECHNIQUE: Following intravenous administration of 94 cc of Visipaque 320, volumetric imaging was obtained from the thoracic inlet through the lung bases. Axial, sagittal, parasagittal and coronal reformat images of the chest were provided. Volumetric imaging was obtained from the lung bases through the pubic symphysis in the portal venous phase. Axial, sagittal and coronal reformatted images were provided. FINDINGS: CHEST: The esophagus is patulous and fluid-filled. A small hiatal hernia is seen. LUNGS AND PLEURA: No pneumothorax, pleural effusion or pulmonary contusion. MEDIASTINUM: Unremarkable. AORTA: No evidence of injury. HEART AND PERICARDIUM: No cardiomegaly, pericardial effusion. ABDOMEN AND PELVIS: HEPATOBILIARY: A 2.1 cm left hepatic cyst is seen. A tiny hypodensity is noted within the right hepatic lobe. No liver lacerations. Gall bladder is unremarkable. SPLEEN: No lacerations. PANCREAS: Diffuse pancreatic atrophy. BOWEL: Multiple noninflamed clonic diverticula are noted, dominantly seen within the sigmoid colon. No free air or fluid. GENITOURINARY: No traumatic findings. No hydroureteronephrosis. Normal bilateral contrast excretion. BONES: RIBS: No fractures. 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 No traumatic findings. PELVIS: No fractures. IMPRESSION: No acute traumatic cardiopulmonary, abdominal or pelvic abnormality. Lumbar spondylosis Pancreatic atrophy Scattered diverticulosis in the colon. Simple hepatic cyst. 10/20/2014 - - This report was dictated by a Contaminated Land Consultant/Fellow. I have personally reviewed the images as well as the Resident's interpretation and agree with the findings. Read by: Ash Moctezuma MD Resident: Ash Moctezuma MD Dictated Date/time: 10/20/14 03:32 Electronically Signed by: Coni Hurtado MD 10/20/14 07:47 FINAL REPORT [facility] Knee 3 views Knee 3 views EXAM: RIGHT FEMUR 2 VIEWS EXAM: RIGHT KNEE 3 VIEWS DATE: Oct 20, 2014 02:08:00 AM INDICATION: FALL COMPARISON: None available TECHNIQUE: AP and lateral radiographs of the right femur, AP, lateral and oblique radiographs of the right knee. FINDINGS: No fracture is seen within the right femur. A right total knee arthroplasty with patellar resurfacing is noted. The hardware appears intact without evidence of failure or fracture. A small right knee joint effusion is seen. Heterotopic calcifications are noted along the right lateral tibial plateau. The superficial soft tissues are unremarkable. IMPRESSION: 1. No acute fracture or evidence of hardware failure/fracture. 2. Small right knee joint effusion. 10/20/2014 - - This report was dictated by a Cont[employer] Consultant/Fellow. I have personally reviewed the images as well as the Resident's interpretation and agree with the findings. Read by: Ash Moctezuma MD Resident: Ash Moctezuma MD Dictated Date/time: 10/20/14 02:28 Electronically Signed by: Coni Hurtado MD 10/20/14 07:45 FINAL REPORT [facility] Femur series Femur series EXAM: RIGHT FEMUR 2 VIEWS EXAM: RIGHT KNEE 3 VIEWS DATE: Oct 20, 2014 02:08:00 AM INDICATION: FALL COMPARISON: None available TECHNIQUE: AP and lateral radiographs of the right femur, AP, lateral and oblique radiographs of the right knee. FINDINGS: No fracture is seen within the right femur. A right total knee arthroplasty with patellar resurfacing is noted. The hardware appears intact without evidence of failure or fracture. A small right knee joint effusion is seen. Heterotopic calcifications are noted along the right lateral tibial plateau. The superficial soft tissues are unremarkable. IMPRESSION: 1. No acute fracture or evidence of hardware failure/fracture. 2. Small right knee joint effusion. 10/20/2014 - - This report was dictated by a Cont[employer] Consultant/Fellow. I have personally reviewed the images as well as the Resident's interpretation and agree with the findings. Read by: Ash Moctezuma MD Resident: Ash Moctezuma MD Dictated Date/time: 10/20/14 02:28 Electronically Signed by: Coni Hutrado MD 10/20/14 07:45 FINAL REPORT [facility] Chest 1view Chest 1view EXAM: XR CHEST 1 VIEW. DATE: Oct 20, 2014 02:09:00 AM. INDICATION: FALL. COMPARISON: Chest 1 view 01/10/2014. TECHNIQUE: Single portable AP chest radiograph. DISCUSSION: Exam is slightly limited due to back board artifact. No airspace opacity, pleural effusion or pneumothorax is seen. The cardiomediastinal silhouette is unchanged. The left-sided PICC line has been removed. Diffuse osteopenia limits evaluation of the bones. A new linear sclerotic focus is noted at the level of the right humeral anatomic neck. IMPRESSION: New sclerotic, linear density at the level of the right humeral head could represent artifact due to backboard vs. acute fracture. This finding will be evaluated further on dedicated right shoulder radiographs. 10/20/2014 - - This report was dictated by a Cont[employer] Consultant/Fellow. I have personally reviewed the images as well as the Resident's interpretation and agree with the findings. Read by: Ash Moctezuma MD Resident: Ash Moctezuma MD Dictated Date/time: 10/20/14 02:14 Electronically Signed by: Coni Hurtado MD 10/20/14 07:37 FINAL REPORT [facility] Pelvis AP Pelvis AP EXAM: AP PELVIS DATE: Oct 20, 2014 02:09:00 AM. INDICATION: FALL. COMPARISON: Lumbar spine radiographs 08/08/2010. TECHNIQUE: A single AP supine radiograph of the pelvis. FINDINGS: No acute fracture, dislocation or apparent soft tissue abnormality is seen. Enthesopathic changes are seen within the pelvis. 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 IMPRESSION: No acute fracture or dislocation. 10/20/2014 - - This report was dictated by a Cont[employer] Consultant/Fellow. I have personally reviewed the images as well as the Resident's interpretation and agree with the findings. Read by: Ash Moctezuma MD Resident: Ash Moctezuma MD Dictated Date/time: 10/20/14 02:17 Electronically Signed by: Coni Hurtado MD 10/20/14 07:44 FINAL REPORT [facility] ELECTROLYTES AGAP 10.9 meq/L 10.0 - 20.0 09/10/2014 [facility] ELECTROLYTES CO2 27 meq/L 24 - 32 09/10/2014 [facility] ELECTROLYTES Potassium Lvl 3.9 meq/L 3.5 - 5.1 09/10/2014 [facility] ELECTROLYTES Chloride Lvl 105 meq/L 95 - 109 09/10/2014 [facility] ELECTROLYTES Sodium Lvl 139 meq/L 135 - 145 09/10/2014 [facility] HEMATOLOGY Hgb 11.9 g/dL 12.0 - 16.0 09/10/2014 [facility] HEMATOLOGY Hct 38.4 % 36.0 - 48.0 09/10/2014 [facility] HEMATOLOGY Hct 30.7 % 36.0 - 48.0 01/12/2014 [facility] HEMATOLOGY Hgb 10.1 g/dL 12.0 - 16.0 01/12/2014 [facility] ELECTROLYTES AGAP 12.6 meq/L 10.0 - 20.0 01/12/2014 [facility] ELECTROLYTES eGFR 54 mL/min/1.73m2 01/12/2014 3Result Comment: The eGFR is calculated using [...] from the National Kidney Disease Education Program (NKDEP) which additionally recommends that when the eGFR is used in patients with extremes of body mass index for purposes of drug dosing, the eGFR should be multiplied by the estimated BMI. [facility] ELECTROLYTES Calcium Lvl 7.8 mg/dL 8.5 - 10.5 01/12/2014 [facility] ELECTROLYTES CO2 24 meq/L 24 - 32 01/12/2014 [facility] ELECTROLYTES Creatinine Lvl 1.0 mg/dL 0.5 - 1.4 01/12/2014 [facility] ELECTROLYTES Potassium Lvl 3.6 meq/L 3.5 - 5.1 01/12/2014 [facility] ELECTROLYTES Sodium Lvl 140 meq/L 135 - 145 01/12/2014 [facility] ELECTROLYTES Chloride Lvl 107 meq/L 95 - 109 01/12/2014 [facility] BUN 16 mg/dL 7 - 22 01/12/2014 [facility] ELECTROLYTES Glucose Lvl 92 mg/dL 70 - 99 01/12/2014 5Interpretive Data: Adult reference range values reflect the clinical guidelines of the [place] [employer]. [facility] HEMATOLOGY RBC X 10x6 3.27 M/CMM 4.20 - 5.40 01/12/2014 [facility] WBC X 10x3 7.4 K/CMM 3.7 - 10.4 01/12/2014 [facility] MCV 86.9 fL 81.0 - 99.0 01/12/2014 [facility] MCH 29.5 pg 27.0 - 31.0 01/12/2014 [facility] Hgb 9.6 g/dL 12.0 - 16.0 01/12/2014 [facility] Hct 28.4 % 36.0 - 48.0 01/12/2014 [facility] HEMATOLOGY MCHC 33.9 g/dL 32.0 - 36.0 01/12/2014 [facility] HEMATOLOGY RDW 12.9 % 11.5 - 14.5 01/12/2014 [facility] HEMATOLOGY MPV 8.7 fL 7.4 - 10.4 01/12/2014 [facility] HEMATOLOGY Platelet 100 K/CMM 133 - 450 01/12/2014 [facility] HEMATOLOGY Monocytes # 0.7 K/CMM 0.0 - 0.8 01/12/2014 [facility] HEMATOLOGY Eosinophils # 0.3 K/CMM 0.0 - 0.5 01/12/2014 [facility] HEMATOLOGY Basophils # 0.0 K/CMM 0.0 - 0.2 01/12/2014 [facility] HEMATOLOGY Eosinophils 3.9 % 0.0 - 4.0 01/12/2014 [facility] HEMATOLOGY Monocytes 9.8 % 2.0 - 12.0 01/12/2014 [facility] Basophils 0.2 % 0.0 - 1.0 01/12/2014 [facility] Lymphocytes 27.8 % 20.0 - 40.0 01/12/2014 [facility] HEMATOLOGY Segs 58.3 % 45.0 - 75.0 01/12/2014 [facility] HEMATOLOGY Segs-Bands # 4.3 K/CMM 1.5 - 8.1 01/12/2014 [facility] Lymphocytes # 2.0 K/CMM 1.0 - 5.5 01/12/2014 [facility] ELECTROLYTES Potassium Lvl 3.3 meq/L 3.5 - 5.1 01/12/2014 [facility] BLOOD BANK RESULTS ABO/Rh A POS 01/11/2014 [facility] CARDIAC ENZYMES BNP 25 pg/mL <=100 pg/mL 01/11/2014 7Interpretive Data: Elevated results are in line with increasing severity of congestive heart failure. Minor elevations between 100 and 300 may be seen with Myocardial Ischemia, Sodium retaining drugs, and compensated/treated heart failure. [facility] BLOOD BANK RESULTS Platelet product Product available 1 (01/11/2014 11:16:00 Rhonda/Brewster) 01/11/2014 1Result Comment: 01/11/2014 14:22 CAMILO called to jr [facility] HEMATOLOGY Platelet 47 K/CMM 133 - 450 01/11/2014 [facility] HEMATOLOGY MPV 9.5 fL 7.4 - 10.4 01/11/2014 [facility] HEMATOLOGY Hgb 9.9 g/dL 12.0 - 16.0 01/11/2014 [facility] HEMATOLOGY RBC X 10x6 3.41 M/CMM 4.20 - 5.40 01/11/2014 [facility] HEMATOLOGY WBC X 10x3 7.2 K/CMM 3.7 - 10.4 01/11/2014 [facility] HEMATOLOGY MCHC 33.3 g/dL 32.0 - 36.0 01/11/2014 [facility] HEMATOLOGY RDW 13.0 % 11.5 - 14.5 01/11/2014 [facility] HEMATOLOGY MCH 29.0 pg 27.0 - 31.0 01/11/2014 [facility] HEMATOLOGY Hct 29.7 % 36.0 - 48.0 01/11/2014 [facility] HEMATOLOGY MCV 87.0 fL 81.0 - 99.0 01/11/2014 [facility] HEMATOLOGY Segs 58.9 % 45.0 - 75.0 01/11/2014 [facility] HEMATOLOGY Lymphocytes 25.1 % 20.0 - 40.0 01/11/2014 [facility] HEMATOLOGY Basophils 0.6 % 0.0 - 1.0 01/11/2014 [facility] HEMATOLOGY Segs-Bands # 4.3 K/CMM 1.5 - 8.1 01/11/2014 [facility] HEMATOLOGY Lymphocytes # 1.8 K/CMM 1.0 - 5.5 01/11/2014 [facility] HEMATOLOGY Monocytes 10.5 % 2.0 - 12.0 01/11/2014 [facility] HEMATOLOGY Eosinophils 4.9 % 0.0 - 4.0 01/11/2014 [facility] HEMATOLOGY Monocytes # 0.8 K/CMM 0.0 - 0.8 01/11/2014 [facility] HEMATOLOGY Eosinophils # 0.4 K/CMM 0.0 - 0.5 01/11/2014 [facility] HEMATOLOGY Basophils # 0.0 K/CMM 0.0 - 0.2 01/11/2014 [facility] HEMATOLOGY Basophils # 0.0 K/CMM 0.0 - 0.2 01/10/2014 [facility] HEMATOLOGY Eosinophils # 0.4 K/CMM 0.0 - 0.5 01/10/2014 [facility] HEMATOLOGY Eosinophils 4.8 % 0.0 - 4.0 01/10/2014 [facility] HEMATOLOGY Segs-Bands # 5.8 K/CMM 1.5 - 8.1 01/10/2014 [facility] HEMATOLOGY Basophils 0.1 % 0.0 - 1.0 01/10/2014 [facility] HEMATOLOGY Monocytes # 0.7 K/CMM 0.0 - 0.8 01/10/2014 [facility] HEMATOLOGY Lymphocytes # 1.3 K/CMM 1.0 - 5.5 01/10/2014 [facility] HEMATOLOGY Segs 70.3 % 45.0 - 75.0 01/10/2014 [facility] Monocytes 9.0 % 2.0 - 12.0 01/10/2014 [facility] Lymphocytes 15.8 % 20.0 - 40.0 01/10/2014 [facility] HEMATOLOGY RDW 13.1 % 11.5 - 14.5 01/10/2014 [facility] MCHC 33.9 g/dL 32.0 - 36.0 01/10/2014 [facility] Platelet 38 K/CMM 133 - 450 01/10/2014 [facility] MCH 29.1 pg 27.0 - 31.0 01/10/2014 [facility] MCV 85.8 fL 81.0 - 99.0 01/10/2014 [facility] WBC X 10x3 8.2 K/CMM 3.7 - 10.4 01/10/2014 [facility] RBC X 10x6 3.66 M/CMM 4.20 - 5.40 01/10/2014 [facility] MPV 9.1 fL 7.4 - 10.4 01/10/2014 [facility] URINE AND STOOL UA Color Ltyellow 01/10/2014 [facility] URINE AND STOOL UA Urobilinogen <=1.0 mg/dL 0.1 - 1.0 01/10/2014 [facility] URINE AND STOOL UA RBC 7 /HPF 0 - 2 01/10/2014 [facility] URINE AND STOOL UA Mucus Few /LPF None Seen /LPF 01/10/2014 [facility] URINE AND STOOL UA Turbidity Clear (01/10/2014 04:30:36 Rhonda/[facility]ster) Clear 01/10/2014 [facility] URINE AND STOOL UA Spec Grav 1.008 <=1.030 01/10/2014 [facility] URINE AND STOOL UA pH 6.0 5.0 - 8.0 01/10/2014 [facility] URINE AND STOOL UA Protein Negative mg/dL Negative mg/dL 01/10/2014 [facility] URINE AND STOOL UA Sq Epi Occasional /LPF Few /LPF 01/10/2014 [facility] URINE AND STOOL UA Nitrite Negative (01/10/2014 04:30:36 Rhonda/[facility]) Negative 01/10/2014 [facility] URINE AND STOOL UA WBC 3 /HPF 0 - 5 01/10/2014 [facility] URINE AND STOOL UA Leuk Est Negative (01/10/2014 04:30:36 [facility]) Negative 01/10/2014 [facility] URINE AND STOOL UA Bili Negative *NA* (01/10/2014 04:30:36 [facility]) Negative 01/10/2014 [facility] URINE AND STOOL UA Ketones Negative mg/dL Negative mg/dL 01/10/2014 [facility] URINE AND STOOL UA Glucose Negative mg/dL Negative mg/dL 01/10/2014 [facility] URINE AND STOOL UA Blood Small *ABN* (01/10/2014 04:30:36 [facility]) Negative 01/10/2014 [facility] CHEM PANEL eGFR 49 mL/min/1.73m2 01/10/2014 4Result Comment: The eGFR is calculated using [...] from the National Kidney Disease Education Program (NKDEP) which additionally recommends that when the eGFR is used in patients with extremes of body mass index for purposes of drug dosing, the eGFR should be multiplied by the estimated BMI. [facility] CHEM PANEL Sodium Lvl 134 meq/L 135 - 145 01/10/2014 [facility] CHEM PANEL Chloride Lvl 100 meq/L 95 - 109 01/10/2014 [facility] CHEM PANEL Potassium Lvl 2.8 meq/L 3.5 - 5.1 01/10/2014 2Result Comment: Critical Result(s) called to Dr. Webster at 01/10/2014 03:56 by GW. Read back [place]. [facility] CHEM PANEL AGAP 9.8 meq/L 10.0 - 20.0 01/10/2014 [facility] CHEM PANEL CO2 27 meq/L 24 - 32 01/10/2014 [facility] CHEM PANEL A/G Ratio 0.9 0.7 - 1.6 01/10/2014 [facility] CHEM PANEL Bili Total 0.3 mg/dL 0.2 - 1.3 01/10/2014 [facility] CHEM PANEL Alk Phos 90 unit/L 39 - 136 01/10/2014 [facility] CHEM PANEL ASPARTATE TRANSAMINASE 13 unit/L 0 - 37 01/10/2014 [facility] CHEM PANEL ALANINE AMINOTRANSFERASE 20 unit/L 0 - 65 01/10/2014 [facility] CHEM PANEL B/C Ratio 8 6 - 25 01/10/2014 [facility] CHEM PANEL Calcium Lvl 8.6 mg/dL 8.5 - 10.5 01/10/2014 [facility] CHEM PANEL Albumin Lvl 3.1 g/dL 3.5 - 5.0 01/10/2014 [facility] CHEM PANEL Total Protein 6.6 g/dL 6.4 - 8.4 01/10/2014 [facility] CHEM PANEL Globulin 3.5 g/dL 2.0 - 4.0 01/10/2014 [facility] CHEM PANEL Creatinine Lvl 1.1 mg/dL 0.5 - 1.4 01/10/2014 [facility] CHEM PANEL BUN 9 mg/dL 7 - 22 01/10/2014 [facility] CHEM PANEL Glucose Lvl 105 mg/dL 70 - 99 01/10/2014 6Interpretive Data: Adult reference range values reflect the clinical guidelines of the [place] [employer]. [facility] HEMATOLOGY INR 1.08 0.85 - 1.17 01/10/2014 8Interpretive Data: RECOMMENDED RANGES FOR PROTIME INR: 2.0-3.0 for most medical and surgical thromboembolic states. 2.5-3.5 for artificial heart valves and recurrent embolism. INR SHOULD BE USED ONLY FOR PATIENTS ON STABLE ANTICOAGULANT THERAPY. [facility] PROTIME 13.9 s 12.0 - 14.7 01/10/2014 [facility] aPTT 28.9 s 22.9 - 35.8 01/10/2014 10Interpretive Data: Heparin Therapeutic Range: 57 - 92 Seconds [facility] D-Dimer 1.54 ug/mL FEU 01/10/2014 9Interpretive Data: In DIC, quantitative D-Dimer is generally greater than 0.66 ug/mL FEU. Values of quantitative D-Dimer less than 0.40 ug/mL FEU have been reported to be associated with a low probability of deep vein thrombosis/pulmonary embolism. This test alone should not be used to rule out DVT/PE. [facility] HEMATOLOGY Fibrinogen Lvl 450 mg/dL 230 - 510 01/10/2014 [facility] Vital Signs Vital Sign Value Date Comments Source Weight 150 11/09/2018 [facility] Height 60 11/09/2018 [facility] Heart Rate 78 11/09/2018 [facility] Diastolic (mm Hg) 62 11/09/2018 [facility] Systolic (mm Hg) 104 11/09/2018 [facility] Weight 150 10/13/2018 [facility] Height 60 10/13/2018 [facility] Diastolic (mm Hg) 70 10/13/2018 [facility] Systolic (mm Hg) 108 10/13/2018 [facility] Heart Rate 67 06/15/2018 [facility] Temperature Oral (F) 97.8 F 06/15/2018 [facility] Systolic (mm Hg) 161 06/15/2018 [facility] Diastolic (mm Hg) 84 06/15/2018 [facility] Heart Rate 59 06/15/2018 [facility] Respitory Rate 17 06/15/2018 [facility] Temperature Oral (F) 97.6 F 06/15/2018 [facility] Systolic (mm Hg) 159 06/15/2018 [facility] Diastolic (mm Hg) 77 06/15/2018 [facility] Temperature Oral (F) 97.7 F 06/15/2018 [facility] Systolic (mm Hg) 158 06/15/2018 [facility] Diastolic (mm Hg) 76 06/15/2018 [facility] Heart Rate 67 06/15/2018 [facility] Respitory Rate 17 06/15/2018 [facility] Respitory Rate 17 06/15/2018 [facility] Weight 69.091 06/14/2018 [facility] Height 152.4 cm 06/14/2018 [facility] BMI Calculated 29.75 06/14/2018 [facility] Height 152.4 cm 06/14/2018 [facility] BMI Calculated 29.75 06/14/2018 [facility] Weight 69.091 06/14/2018 [facility] Weight 148 05/05/2018 [facility] Height 60 05/05/2018 [facility] Heart Rate 80 05/05/2018 [facility] Diastolic (mm Hg) 70 05/05/2018 [facility] Systolic (mm Hg) 118 05/05/2018 [facility] Weight 150 04/13/2018 [facility] Height 60 04/13/2018 [facility] Heart Rate 85 04/13/2018 [facility] Diastolic (mm Hg) 64 04/13/2018 [facility] Systolic (mm Hg) 108 04/13/2018 [facility] Weight 148 01/12/2018 [facility] Height 60 01/12/2018 [facility] Heart Rate 86 01/12/2018 [facility] Diastolic (mm Hg) 64 01/12/2018 [facility] Systolic (mm Hg) 112 01/12/2018 [facility] Weight 148 11/10/2017 [facility] Height 60 11/10/2017 [facility] Heart Rate 88 11/10/2017 [facility] Diastolic (mm Hg) 68 11/10/2017 [facility] Systolic (mm Hg) 112 11/10/2017 [facility] Weight 152 06/14/2017 [facility] Height 60 06/14/2017 [facility] Heart Rate 99 06/14/2017 [facility] Diastolic (mm Hg) 68 06/14/2017 [facility] Systolic (mm Hg) 120 06/14/2017 [facility] Weight 153 05/24/2017 [facility] Height 60 05/24/2017 [facility] Heart Rate 86 05/24/2017 [facility] Diastolic (mm Hg) 66 05/24/2017 [facility] Systolic (mm Hg) 122 05/24/2017 [facility] Weight 157 02/03/2017 [facility] Height 60 02/03/2017 [facility] Heart Rate 88 02/03/2017 [facility] Diastolic (mm Hg) 72 02/03/2017 [facility] Systolic (mm Hg) 108 02/03/2017 [facility] Weight 154 11/09/2016 [facility] Height 60 11/09/2016 [facility] Heart Rate 60 11/09/2016 [facility] Diastolic (mm Hg) 69 11/09/2016 [facility] Systolic (mm Hg) 124 11/09/2016 [facility] Weight 155 08/04/2016 [facility] Height 60 08/04/2016 [facility] Heart Rate 55 08/04/2016 [facility] Diastolic (mm Hg) 72 08/04/2016 [facility] Systolic (mm Hg) 118 08/04/2016 [facility] Weight 157 05/14/2016 [facility] Height 60 05/14/2016 [facility] Heart Rate 60 05/14/2016 [facility] Diastolic (mm Hg) 80 05/14/2016 [facility] Systolic (mm Hg) 128 05/14/2016 [facility] Heart Rate 74 05/08/2016 [facility] Temperature Oral (F) 97.8 F 05/08/2016 [facility] Systolic (mm Hg) 148 05/08/2016 [facility] Diastolic (mm Hg) 70 05/08/2016 [facility] Respitory Rate 17 05/08/2016 [facility] Systolic (mm Hg) 135 05/08/2016 [facility] Diastolic (mm Hg) 73 05/08/2016 [facility] Respitory Rate 17 05/08/2016 [facility] Temperature Oral (F) 97.8 F 05/08/2016 [facility] Heart Rate 62 05/08/2016 [facility] Systolic (mm Hg) 134 05/08/2016 [facility] Diastolic (mm Hg) 70 05/08/2016 [facility] Respitory Rate 18 05/08/2016 [facility] Heart Rate 65 05/08/2016 [facility] Temperature Oral (F) 97.6 F 05/08/2016 [facility] Weight 71.818 05/06/2016 [facility] BMI Calculated 31.98 05/06/2016 [facility] Height 149.86 cm 05/06/2016 [facility] BMI Calculated 32.29 05/06/2016 [facility] Weight 75 05/06/2016 [facility] Height 152.4 cm 05/06/2016 [facility] Weight 165 02/25/2016 [facility] Height 60 02/25/2016 [facility] Heart Rate 58 02/25/2016 [facility] Diastolic (mm Hg) 70 02/25/2016 [facility] Systolic (mm Hg) 97 02/25/2016 [facility] Weight 165 11/05/2015 [facility] Height 60 11/05/2015 [facility] Heart Rate 70 11/05/2015 [facility] Diastolic (mm Hg) 70 11/05/2015 [facility] Systolic (mm Hg) 116 11/05/2015 [facility] Weight 165 06/21/2015 [facility] Height 60 06/21/2015 [facility] Temperature Oral (F) 98.1 F 06/21/2015 [facility] Heart Rate 77 06/21/2015 [facility] Diastolic (mm Hg) 62 06/21/2015 [facility] Systolic (mm Hg) 102 06/21/2015 [facility] Temperature Oral (F) 98.4 F 10/20/2014 [facility] Diastolic (mm Hg) 70 10/20/2014 [facility] Respitory Rate 18 10/20/2014 [facility] Systolic (mm Hg) 134 10/20/2014 [facility] Systolic (mm Hg) 159 10/20/2014 [facility] Diastolic (mm Hg) 68 10/20/2014 [facility] Respitory Rate 20 10/20/2014 [facility] Diastolic (mm Hg) 87 10/20/2014 [facility] Respitory Rate 13 10/20/2014 [facility] Systolic (mm Hg) 147 10/20/2014 [facility] Temperature Oral (F) 97.8 F 10/20/2014 [facility] Heart Rate 88 10/20/2014 [facility] Weight 75 10/20/2014 [facility] Height 152.4 cm 10/20/2014 [facility] BMI Calculated 32.29 10/20/2014 [facility] Respitory Rate 18 09/13/2014 [facility] Systolic (mm Hg) 170 09/13/2014 [facility] Diastolic (mm Hg) 70 09/13/2014 [facility] Respitory Rate 18 09/13/2014 [facility] Systolic (mm Hg) 158 09/13/2014 [facility] Diastolic (mm Hg) 76 09/13/2014 [facility] Respitory Rate 17 09/13/2014 [facility] Systolic (mm Hg) 168 09/13/2014 [facility] Diastolic (mm Hg) 71 09/13/2014 [facility] Heart Rate 79 09/13/2014 [facility] Temperature Oral (F) 98.0 F 09/10/2014 [facility] Heart Rate 69 09/10/2014 [facility] Height 152.4 cm 09/10/2014 [facility] BMI Calculated 32.68 09/10/2014 [facility] Weight 75.909 09/10/2014 [facility] Systolic (mm Hg) 168 01/12/2014 [facility] Diastolic (mm Hg) 94 01/12/2014 [facility] Heart Rate 89 01/12/2014 [facility] Systolic (mm Hg) 165 01/12/2014 [facility] Diastolic (mm Hg) 82 01/12/2014 [facility] Heart Rate 83 01/12/2014 [facility] Diastolic (mm Hg) 76 01/12/2014 [facility] Heart Rate 82 01/12/2014 [facility] Systolic (mm Hg) 151 01/12/2014 [facility] Respitory Rate 17 01/12/2014 [facility] Temperature Oral (F) 98.1 F 01/12/2014 [facility] Respitory Rate 17 01/12/2014 [facility] Respitory Rate 17 01/12/2014 [facility] Temperature Oral (F) 98.0 F 01/12/2014 [facility] Temperature Oral (F) 97.7 F 01/12/2014 [facility] Weight 75.909 01/10/2014 [facility] BMI Calculated 32.68 01/10/2014 [facility] Height 152.4 cm 01/10/2014 [facility] Encounters Location Location Details Encounter Type Encounter Number Reason For Visit Attending Provider ADM Date DC Date Status Source [facility] Inpatient [id number] _[id number] Amir Ghebranious 01/10/2014 01/12/2014 [facility] [id number] Rudolph Waddell 09/13/2014 09/13/2014 [facility] [id number] Gaston Wright 10/20/2014 10/20/2014 [facility] [place] [id number] 06/17/2015 06/17/2015 [facility] [place] [id number] 06/17/2015 06/17/2015 [facility] [place] [id number] 06/17/2015 06/17/2015 [facility] [place] [id number] 06/17/2015 06/17/2015 [facility] [place] [id number] 06/17/2015 06/17/2015 [facility] [place] [id number] 06/17/2015 06/17/2015 [facility] [place] [id number] 06/17/2015 06/17/2015 [facility] [place] [id number] 06/17/2015 06/17/2015 [facility] [place] [id number] 06/17/2015 06/17/2015 [facility] [place] [id number] 06/17/2015 06/17/2015 [facility] [place] [id number] 06/17/2015 06/17/2015 [facility] RESULTS/GALLBLADDER CK [id number] 06/21/2015 06/21/2015 [facility] RESULTS/GALLBLADDER CK [id number] 06/21/2015 06/21/2015 [facility] RESULTS/GALLBLADDER CK [id number] 06/21/2015 06/21/2015 [facility] RESULTS/GALLBLADDER CK [id number] 06/21/2015 06/21/2015 [facility] RESULTS/GALLBLADDER CK [id number] 06/21/2015 06/21/2015 [facility] RESULTS/GALLBLADDER CK [id number] 06/21/2015 06/21/2015 [facility] RESULTS/GALLBLADDER CK [id number] 06/21/2015 06/21/2015 [facility] RESULTS/GALLBLADDER CK [id number] 06/21/2015 06/21/2015 [facility] RESULTS/GALLBLADDER CK [id number] 06/21/2015 06/21/2015 [facility] RESULTS/GALLBLADDER CK [id number] 06/21/2015 06/21/2015 [facility] RESULTS/GALLBLADDER CK [id number] 06/21/2015 06/21/2015 [facility] Outpatient [id number] Anay GayleLorenzo 10/11/2015 10/12/2015 [facility] Physical exam and FBW [id number] 11/05/2015 11/05/2015 [facility] Physical exam and FBW [id number] 11/05/2015 11/05/2015 [facility] Physical exam and FBW [id number] 11/05/2015 11/05/2015 [facility] Physical exam and FBW [id number] 11/05/2015 11/05/2015 [facility] [facility] Physical exam and FBW [id number] 11/05/2015 11/05/2015 [facility] Physical exam and FBW [id number] 11/05/2015 11/05/2015 [facility] Physical exam and FBW [id number] 11/05/2015 11/05/2015 [facility] Physical exam and FBW [id number] 11/05/2015 11/05/2015 [facility] Physical exam and FBW [id number] 11/05/2015 11/05/2015 [facility] 3 MONTH FOLLOW UP [id number] 02/25/2016 02/25/2016 [facility] 3 MONTH FOLLOW UP [id number] 02/25/2016 02/25/2016 [facility] 3 MONTH FOLLOW UP [id number] 02/25/2016 02/25/2016 [facility] 3 MONTH FOLLOW UP [id number] 02/25/2016 02/25/2016 [facility] 3 MONTH FOLLOW UP [id number] 02/25/2016 02/25/2016 [facility] 3 MONTH FOLLOW UP [id number] 02/25/2016 02/25/2016 [facility] 3 MONTH FOLLOW UP [id number] 02/25/2016 02/25/2016 [facility] 3 MONTH FOLLOW UP [id number] 02/25/2016 02/25/2016 [facility] New Refill Request [id number] 03/03/2016 03/03/2016 [facility] New Refill Request [id number] 03/03/2016 03/03/2016 [facility] New Refill Request [id number] 03/03/2016 03/03/2016 [facility] New Refill Request [id number] 03/03/2016 03/03/2016 [facility] New Refill Request [id number] 03/03/2016 03/03/2016 [facility] New Refill Request [id number] 03/03/2016 03/03/2016 [facility] New Refill Request [id number] 03/03/2016 03/03/2016 [facility] lab results and new rx [id number] 03/06/2016 03/06/2016 [facility] lab results and new rx [id number] 03/06/2016 03/06/2016 [facility] lab results and new rx [id number] 03/06/2016 03/06/2016 [facility] lab results and new rx [id number] 03/06/2016 03/06/2016 [facility] lab results and new rx [id number] 03/06/2016 03/06/2016 [facility] lab results and new rx [id number] 03/06/2016 03/06/2016 [facility] OBS Observation Patient [id number] Micheller Silasious 05/06/2016 05/08/2016 [facility] 3 MONTH FOLLOW UP [id number] 05/14/2016 05/14/2016 [facility] 3 MONTH FOLLOW UP [id number] 05/14/2016 05/14/2016 [facility] 3 MONTH FOLLOW UP [id number] 05/14/2016 05/14/2016 [facility] 3 MONTH FOLLOW UP [id number] 05/14/2016 05/14/2016 [facility] 3 MONTH FOLLOW UP [id number] 05/14/2016 05/14/2016 [facility] 3 MONTH FOLLOW UP [id number] 08/04/2016 08/04/2016 [facility] 3 MONTH FOLLOW UP [id number] 08/04/2016 08/04/2016 [facility] 3 MONTH FOLLOW UP [id number] 08/04/2016 08/04/2016 [facility] 3 MONTH FOLLOW UP [id number] 08/04/2016 08/04/2016 [facility] Test results [id number] 08/26/2016 08/26/2016 [facility] Test results [id number] 08/26/2016 08/26/2016 [facility] Test results [id number] 08/26/2016 08/26/2016 [facility] PHYSICAL [id number] 11/09/2016 11/09/2016 [facility] PHYSICAL [id number] 11/09/2016 11/09/2016 [facility] Other [id number] 12/07/2016 12/07/2016 [facility] Outpatient [id number] Brea Doherty 04/21/2017 04/22/2017 [facility]patient [id number] Cedric Teqwimuah 06/14/2018 06/15/2018 [facility] Procedures Procedure Code Date Perfomer Comments Source Biopsy of lymph node [id number] [facility] Cataract surgery [id number] [facility] Hysterectomy [id number] [facility] Incision AND drainage [id number] [facility] Knee replacement [id number] [facility]
--- OUTSIDE RECORDS SUMMARY | 2019-01-19 05:40 | XMS REPORT ---
Author Author Anay De Leon [facility] eClinicalWorks Address Unknown Phone Unavailable Care Team Providers Care Repairer Sash And Door Name Role Phone Anay De Leon CP Unavailable Allergies No Known Allergies Problems Problem Type Condition Code Onset Dates Condition Status Problem COPD (chronic obstructive pulmonary disease) J44.9 Active Problem Osteoarthritis M19.90 Active Problem Migraines G43.909 Active Problem BMI 30.0-30.9,adult Z68.30 Active Problem Insomnia G47.00 Active Problem Obesity (BMI 30-39.9) E66.9 Active Problem GERD (gastroesophageal reflux disease) K21.9 Active Problem Sciatica of right side M54.31 Active Problem Diabetes E11.9 Active Problem Hypothyroid E03.9 Active Problem Osteopenia M85.80 Active Problem Arthritis M19.90 Active Problem Degenerative arthritis M19.90 Active Problem Elevated alkaline phosphatase level R74.8 Active Problem Tinea corporis B35.4 Active Problem 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
--- OUTSIDE RECORDS SUMMARY | 2019-01-19 05:40 | XMS REPORT ---
Author Author Anay De Leon [facility] eClinicalWorks Address Unknown Phone Unavailable Care Team Providers Care Regulatory Internship Name Role Phone Anay De Leon CP [...]
--- OUTSIDE RECORDS SUMMARY | 2019-01-19 05:40 | XMS REPORT ---
Author Author Anay De Leon [facility] eClinicalWorks Address Unknown Phone Unavailable Care Team Providers Care Precipitate Washer Name Role Phone Anay De Leon CP Unavailable Allergies No Known Allergies Problems Problem Type Condition Code Onset Dates Condition Status Problem COPD (chronic obstructive pulmonary disease) J44.9 Active Problem Osteoarthritis M19.90 Active Problem Migraines G43.909 Active Problem BMI 30.0-30.9,adult Z68.30 Active Problem Insomnia G47.00 Active Problem Obesity (BMI 30-39.9) E66.9 Active Problem GERD (gastroesophageal reflux disease) K21.9 Active Assessment Sciatica M54.30 Active Problem Sciatica of right side M54.31 [...] Problem Peripheral vascular disease I73.9 Active Medications Medication Code System Code Instructions Start Date End Date Status Dosage Tramadol HCl [facility] [place]NOTE 2] 62871393521 50 mg Orally every 6-8 hrs prn pain March 17, 2018 Active 1 tablet Results No Known Results Summary Purpose eClinicalWorks Submission
--- OUTSIDE RECORDS SUMMARY | 2019-01-19 05:40 | XMS REPORT ---
Author Author Anay De Leon [facility] eClinicalWorks Address Unknown Phone Unavailable Care Team Providers Care Medieval English Literature Professor Name Role Phone Anay De Leon CP Unavailable Allergies No Known Allergies Problems Problem Type Condition Code Onset Dates Condition Status Problem COPD (chronic obstructive pulmonary disease) J44.9 Active Problem Osteoarthritis M19.90 Active Problem Migraines G43.909 Active Problem BMI 30.0-30.9,adult Z68.30 Active Problem Insomnia G47.00 Active Problem Obesity (BMI 30-39.9) E66.9 Active Problem GERD (gastroesophageal reflux disease) K21.9 Active Assessment Hypothyroid E03.9 Active Problem Sciatica of right side M54.31 [...] Instructions Start Date End Date Status Dosage Synthroid NDC 42778017452 50 MCG Orally Once a day Aug 26, 2016 Inactive 1 tablet Synthroid NDC 83805882939 75 MCG Orally Once a day Dec 02, 2017 Active 1 tablet on an empty stomach in the morning Results No Known Results Summary Purpose eClinicalWorks Submission
--- OUTSIDE RECORDS SUMMARY | 2019-01-19 05:40 | XMS REPORT ---
Author Author Anay De Leon [facility] eClinicalWorks Address Unknown Phone Unavailable Care Team Providers Care Log Marker Name Role Phone Anay De Leon CP Unavailable Allergies No Known Allergies Problems Problem Type Condition Code Onset Dates Condition Status Problem Osteoarthritis M19.90 Active Problem COPD (chronic obstructive pulmonary disease) J44.9 Active Problem Migraines G43.909 Active Problem Osteopenia M85.80 Active Problem Insomnia G47.00 Active Problem BMI 30.0-30.9,adult Z68.30 Active Problem Elevated alkaline phosphatase level R74.8 Active Assessment Insomnia G47.00 Active Problem Sciatica of right side M54.31 Active Problem Diabetes E11.9 Active Problem Hypothyroid E03.9 Active Problem Obesity (BMI 30-39.9) E66.9 Active Problem Arthritis M19.90 Active Problem GERD (gastroesophageal reflux disease) K21.9 Active Problem 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 Problem Tinea corporis B35.4 Active Problem Degenerative arthritis M19.90 Active Problem Sciatica M54.30 Active Problem Vitamin D deficiency E55.9 Active Problem Hyperlipidemia, unspecified E78.5 Active Problem Raynaud's syndrome I73.00 Active Problem Essential hypertension I10 Active Problem Peripheral vascular disease I73.9 Active Medications Medication Code System Code Instructions Start Date End Date Status Dosage Zolpidem Tartrate [facility] [address]-11 10 MG Orally qhs Active 1 tablet Results No Known Results Summary Purpose eClinicalWorks Submission
--- OUTSIDE RECORDS SUMMARY | 2019-01-19 05:40 | XMS REPORT ---
Author Author Anay De Leon [facility] eClinicalWorks Address Unknown Phone Unavailable Care Team Providers Care Threshing Department Supervisor Name Role Phone Anay De Leon CP Unavailable Allergies, Adverse Reactions, Alerts Substance Reaction Event Type sulfa Info Not Available Drug Allergy Problems Problem Type Condition Code Onset Dates Condition Status Assessment GERD (gastroesophageal reflux disease) K21.9 Active Assessment Migraines G43.909 Active Assessment Hypothyroid E03.9 Active Assessment Insomnia G47.00 Active Assessment Diabetes E11.9 Active Assessment COPD (chronic obstructive pulmonary disease) J44.9 Active Assessment Vitamin D deficiency E55.9 Active Assessment Hyperlipidemia, unspecified E78.5 Active Assessment Essential hypertension I10 Active Problem Raynaud's syndrome I73.00 Active Assessment Asymptomatic menopausal state Z78.0 Active Problem Peripheral vascular disease I73.9 Active Assessment Screening for malignant neoplasm of breast Z12.39 Active Problem COPD (chronic obstructive pulmonary disease) J44.9 Active Problem Osteoarthritis M19.90 Active Problem Migraines G43.909 Active Problem BMI 30.0-30.9,adult Z68.30 Active Problem Obesity (BMI 30-39.9) E66.9 Active Problem Insomnia G47.00 Active Problem GERD (gastroesophageal reflux disease) K21.9 Active Problem Sciatica of right side M54.31 Active Assessment Routine general medical examination at a health care facility Z00.00 Active Problem Diabetes E11.9 Active Problem Hypothyroid E03.9 Active Problem Osteopenia M85.80 Active Problem Arthritis M19.90 Active Assessment Sciatica M54.30 Active Problem Degenerative arthritis M19.90 Active Assessment Degenerative arthritis M19.90 Active Problem Elevated alkaline phosphatase level R74.8 Active Problem Tinea corporis B35.4 Active Assessment Monilia infection B37.9 Active Problem 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 Problem Sciatica M54.30 Active Problem Vitamin D deficiency E55.9 Active Problem Essential hypertension I10 Active Problem Hyperlipidemia, unspecified E78.5 Active Medications Medication Code System Code Instructions Start Date End Date Status Dosage Zolpidem Tartrate NDC 30079864278 10 mg Orally qhs Active 1 tablet Diclofenac Sodium [facility] 36891304385 75 mg Orally Once a day Dec 09, 2016 Nov 05, 2018 Active 1 tablet Metoprolol Succinate ER ND 75379837466 25 MG Orally Once a day Active 1 tablet Tramadol HCl ND 45445132226 50 mg Orally every 6-8 hrs prn pain Nov 18, 2017 Inactive 1 tablet Pantoprazole Sodium [facility] 89441213750 40 Active TAKE ONE TABLET BY MOUTH DAILY Ventolin HFA [facility] 42006780217 108 (90 Base) MCG/ACT Inhalation every 4 hrs Nov 05, 2015 Active 2 puffs Pantoprazole Sodium [facility] 43167152709 40 mg Orally Once a day Nov 05, 2015 Active 1 tablet Losartan Potassium-HCTZ [facility] 65217573689 100-12.5 Active TAKE ONE TABLET BY MOUTH DAILY Amitriptyline HCl [facility] 90040700988 10 Inactive TAKE ONE TABLET BY MOUTH EVERY NIGHT AT BEDTIME NEEDED Imitrex [facility] 49812657402 50 MG Orally at headache onset, march repeat in 2 hours, max 2 a day March 29, 2014 Active 1 tablet Lumigan [facility] 47824837382 0.01 % Ophthalmic Once a day Active 1 drop into affected eye in the evening MetFORMIN HCl ER [facility] 73708388398 500 mg Orally Once a day Nov 26, 2015 Active 1 tablet with evening meal Synthroid [facility] 37035143486 50 MCG Orally Once a day Aug 26, 2016 Active 1 tablet Misoprostol [facility] 76590931500 200 MCG Orally once a day Dec 09, 2016 Nov 05, 2018 Active 1 tablet with food Nystop [facility] 05832117697 100,000 Inactive APPLY TWO TIMES A DAY DIRECTED Pravastatin Sodium [facility] 73048667517 20 Orally Once a day Active 1 tablet Nystatin [facility] 92902098961 747518 UNIT/GM Externally Twice a day Nov 10, 2017 Nov 05, 2018 Active 1 application to affected area Losartan Potassium-HCTZ [facility] 05239819878 100-12.5 MG Orally Once a day Nov 26, 2015 Active 1/2 tablet Nystatin [facility] 48327598695 100,000 Externally Twice a day Inactive as directed Synthroid [facility] [address]-79 50 Active TAKE ONE TABLET BY MOUTH DAILY Vital Signs Date/Time: Nov 10, 2017 BMI 28.90 Index Weight 148 lbs Height 60 in Cardiac Monitoring Heart Rate 88 /min Blood Pressure Diastolic 68 mm Hg Blood Pressure Systolic 112 mm Hg Results Name Result Date Reference Range Unit Abnormality Flag Chest 2 views- Xray Summary Purpose eClinicalWorks Submission
--- OUTSIDE RECORDS SUMMARY | 2019-01-19 05:40 | XMS REPORT ---
Author Author Anay De Leon [facility] eClinicalWorks Address Unknown Phone Unavailable Care Team Providers Care Tracer Clerk Name Role Phone Anay De Leon CP [...] Date End Date Status Dosage Tramadol HCl [facility] 71210792215 50 mg Orally every 6-8 hrs prn pain Nov 18, 2017 Active 1 tablet Results No Known Results Summary Purpose eClinicalWorks Submission
--- OUTSIDE RECORDS SUMMARY | 2019-01-19 05:40 | XMS REPORT ---
Author Author Anay De Leon [facility] eClinicalWorks Address Unknown Phone Unavailable Care Team Providers Care Human Resources Operations Coordinator Name Role Phone Anay De Leon CP Unavailable Allergies, Adverse Reactions, Alerts Substance Reaction Event Type sulfa Info Not Available Drug Allergy Problems Problem Type Condition Code Onset Dates Condition Status Assessment Reactive lymphadenopathy R59.9 Active Assessment Degenerative arthritis M19.90 Active Assessment Osteopenia M85.80 Active Assessment Diabetes E11.9 Active Problem Raynaud's syndrome I73.00 Active Assessment Sciatica M54.30 Active Problem Peripheral vascular disease I73.9 Active Assessment Hyperlipidemia, unspecified E78.5 Active Problem Osteoarthritis M19.90 Active Problem COPD (chronic obstructive pulmonary disease) J44.9 Active Problem Migraines G43.909 Active Problem Osteopenia M85.80 Active Problem BMI 30.0-30.9,adult Z68.30 Active Problem Insomnia G47.00 Active Problem Elevated alkaline phosphatase level R74.8 Active Problem Sciatica of right side M54.31 Active Assessment Essential hypertension I10 Active Problem Diabetes E11.9 Active Problem Hypothyroid E03.9 Active Problem Obesity (BMI 30-39.9) E66.9 Active Problem Arthritis M19.90 Active Problem GERD (gastroesophageal reflux disease) K21.9 Active Problem 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 Problem Tinea corporis B35.4 Active Problem Degenerative arthritis M19.90 Active Problem Sciatica M54.30 Active Problem Vitamin D deficiency E55.9 Active Problem Hyperlipidemia, unspecified E78.5 Active Problem Essential hypertension I10 Active Medications Medication Code System Code Instructions Start Date End Date Status Dosage Tramadol HCl [facility] [address]-68 50 MG Orally every 6 hrs prn pain Sep 12, 2017 Active 1 tablet Flexeril NDC 0 10 MG Orally three times a day (tid) as needed (prn) Jun 14, 2017 Aug 13, 2017 Active 1 tablet Zolpidem Tartrate [facility] [address]-17 10 MG Orally qhs Active 1 tablet MetFORMIN HCl ER [facility] [address]-10 500 MG Orally Once a day Nov 26, 2015 Active 1 tablet with evening meal Amitriptyline HCl [facility] 97218621582 10 Orally qhs prn Active 1 tablet Synthroid [facility] [address]-48 50 MCG Orally Once a day Aug 26, 2016 Active 1 tablet Pravastatin Sodium [facility] 86765903558 20 Active TAKE ONE TABLET BY MOUTH DAILY Diclofenac Sodium [facility] [address]-27 75 MG Orally Once a day Dec 09, 2016 Dec 04, 2017 Active 1 tablet Metoprolol Succinate ER [facility] [address]-29 25 MG Orally Once a day Active 1 tablet Losartan Potassium-HCTZ [facility] [address]-05 100-12.5 MG Orally Once a day Nov 26, 2015 Active 1/2 tablet Imitrex [facility] [address]-30 50 MG Orally at headache onset, may repeat in 2 hours, max 2 a day March 29, 2014 Active 1 tablet Ventolin HFA [facility] [address]-32 108 (90 Base) MCG/ACT Inhalation every 4 hrs Nov 05, 2015 Active 2 puffs Misoprostol [facility] [address]-22 200 MCG Orally once a day Dec 09, 2016 Dec 04, 2017 Active 1 tablet with food Lumigan [facility] [address]-06 0.01 % Ophthalmic Once a day Active 1 drop into affected eye in the evening Nystatin [facility] 30148676450 100,000 Externally Twice a day Active as directed Pantoprazole Sodium [facility] [address]-49 40 mg Orally Once a day Nov 05, 2015 Active 1 tablet Vital Signs Date/Time: Jun 14, 2017 BMI 29.68 Index Weight 152 lbs Height 60 in Cardiac Monitoring Heart Rate 99 /min Blood Pressure Diastolic 68 mm Hg Blood Pressure Systolic 120 mm Hg Results No Known Results Summary Purpose eClinicalWorks Submission
--- OUTSIDE RECORDS SUMMARY | 2019-01-19 05:40 | XMS REPORT ---
Author Author Anay De Leon [facility] eClinicalWorks Address Unknown Phone Unavailable Care Team Providers Care Contract Clerk Automobile Name Role Phone Anay De Leon CP [...] Date End Date Status Dosage Tramadol HCl [facility] 76467737530 50 mg Orally every 6 hrs prn pain Sep 01, 2017 Active 1 tablet Results No Known Results Summary Purpose eClinicalWorks Submission
--- OUTSIDE RECORDS SUMMARY | 2019-01-19 05:40 | XMS REPORT | Summary of Care ---
Author Author [facility] Organization [facility] Address Unknown Phone Unavailable Encounter [employer](FIN) [id number] Date(s): 05/05/16 - 05/08/16 [facility] [id number] [place] [address]- Discharge Disposition: Home Attending Physician: Popeye Stern MD Admitting Physician: Popeye Stern MD Vital Signs 1 2 3 Most recent to oldest [Reference Range]: 149.86 cm (05/06/16 8:45 AM) 152.4 cm (05/05/16 11:35 PM) Height 97.8 DegF (05/08/16 12:00 PM) 97.8 DegF (05/08/16 8:00 AM) 97.6 DegF (05/08/16 4:44 AM) Temperature Oral [96.4-99.1 DegF] 148/70 mmHg *HI* (05/08/16 12:00 PM) 135/73 mmHg (05/08/16 8:00 AM) 134/70 mmHg (05/08/16 4:44 AM) Blood Pressure [90-140/60-90 mmHg] 17 BRMIN (05/08/16 12:00 PM) 17 BRMIN (05/08/16 8:00 AM) 18 BRMIN (05/08/16 4:44 AM) Respiratory Rate [14-20 BRMIN] 74 bpm (05/08/16 12:00 PM) 62 bpm (05/08/16 8:00 AM) 65 bpm (05/08/16 4:44 AM) Peripheral Pulse Rate [60-100 bpm] 71.818 kg (05/06/16 8:45 AM) 75 kg (05/05/16 11:35 PM) Weight 31.98 m2 (05/06/16 8:45 AM) 32.29 m2 (05/05/16 11:35 PM) Body Mass Index Problem List Condition Effective Dates Status Health Status Informant Abscess right middle Resolved finger(Confirmed) Acid Active reflux(Confirmed) Anxiety(Confirmed) Active Arthritis(Confirmed) Active Cataract(Confirmed) Resolved GI Resolved bleeding(Confirmed) Hypertension(Confirm Active ed) Irregular heart Resolved beat(Confirmed) Knee Active replacement(Confirme d) Pneumonia(Confirmed) Resolved Raynaud Active disease(Confirmed) Rectal Active bleeding(Confirmed) Allergies, Adverse Reactions, Alerts Substance Reaction Severity Status sulfa drugs Active Medications Arthrotec 75 mg-200 mcg oral tablet 1 tab, Route: PO, Drug Form: TAB, Dosing Weight 71.818, kg, Bedtime, Start date: 05/06/16 21:00:00 CDT, Duration: 30 day, Stop date: 06/04/16 21:00:00 CDT Start Date: 05/06/16 Stop Date: 05/08/16 Status: Discontinued aspirin 81 mg, PO, Daily, 0 Refill(s) Start Date: 05/06/16 Status: Ordered aspirin 81 mg, 1 tab, Route: PO, Drug form: [place], Daily, Dosing Weight 71.818, kg, St art date: 05/06/16 9:00:00 CDT, Duration: 30 day, Stop date: 06/04/16 9:00:00 CD T Notes: Take with food. Start Date: 05/06/16 Stop Date: 05/08/16 Status: Discontinued Ativan 1 mg, 0.5 mL, Route: IVP, Drug form: INJ, Q8H, Dosing Weight 75, kg, PRN Agitati on, Priority: Routine, Start date: 05/06/16 4:48:00 CDT, Duration: 30 day, Stop date: 06/05/16 4:47:00 CDT Notes: (Same as: Ativan) Start Date: 05/06/16 Stop Date: 05/08/16 Status: Discontinued atropine 0.5 mg, 5 mL, Route: IVP, Drug form: INJ, ONCE, Dosing Weight 71.818, kg, PRN Br adycardia, Start date: 05/07/16 2:25:00 CDT, Symptomatic bradycardia with a rate of <40/minute Start Date: 05/07/16 Stop Date: 05/08/16 Status: Discontinued Cozaar 100 mg, 2 tab, Route: PO, Drug form: TAB, Bedtime, Start date: 05/06/16 21:00:00 CDT, Duration: 30 day, Stop date: 06/04/16 21:00:00 CDT Notes: (Same as: Cozaar) Start Date: 05/06/16 Stop Date: 05/08/16 Status: Discontinued hydrochlorothiazide-losartan 12.5 mg-100 mg oral tablet 1 tab, Route: PO, Drug Form: TAB, Dosing Weight 71.818, kg, Bedtime, Start date: 05/06/16 21:00:00 CDT, Duration: 30 day, Stop date: 06/04/16 21:00:00 CDT Start Date: 05/06/16 Stop Date: 05/06/16 Status: Deleted Imodium A-D 2 mg, 1 cap, Route: PO, Drug form: CAP, Q4H, Dosing Weight 71.818, kg, PRN as ne eded for loose stool, Start date: 05/06/16 8:57:00 CDT, Duration: 30 day, Stop d ate: 06/05/16 8:56:00 CDT Notes: (Same as: Imodium) MAX adult dose is 8 caps/day Start Date: 05/06/16 Stop Date: 05/08/16 Status: Discontinued Kenalog-40 40 mg, 1 mL, Route: intra-ARTICULAR, Drug form: INJ, ONCE, Dosing Weight 71.818, kg, PRN Keep at Bedside, Start date: 05/07/16 8:17:00 CDT Notes: (Same As: Kenalog-40) MEDICATION WASTE Product Size: 40 mgProduc t Wasted: ___ mg Start Date: 05/07/16 Stop Date: 05/08/16 Status: Discontinued levothyroxine 25 microgram, 1 tab, Route: PO, Drug form: TAB, Q6AM, Dosing Weight 71.818, kg, Start date: 05/06/16 9:13:00 CDT, Duration: 30 day, Stop date: 06/05/16 6:00:00 CDT Notes: Take 1 hour before or 2 hours after meal; Enteral feeds may interefere wi th the absorption of this medication. (Same as:Levothroid) Start Date: 05/06/16 Stop Date: 05/08/16 Status: Discontinued levothyroxine 25 mg, Daily, 0 Refill(s) Start Date: 05/06/16 Status: Ordered Lumigan 0.01% ophthalmic solution 1 drp, Route: BOTH EYES, Drug Form: SOLN, Dosing Weight 71.818, kg, Bedtime, Sta rt date: 05/06/16 21:00:00 CDT, Duration: 30 day, Stop date: 06/04/16 21:00:00 C DT Start Date: 05/06/16 Stop Date: 05/06/16 Status: Deleted Marcaine HCl with Epinephrine 0.5%-1:200,000 preservative-free injectable soluti on Route: intra-ARTICULAR, Drug Form: INJ, Dosing Weight 71.818, kg, ONCE, PRN Keep at Bedside, Start date: 05/07/16 8:15:00 CDT Notes: Preservative free. Not for use in continuous infusion. (Same As: Sensorca ine-MPF with Epinephrine) Start Date: 05/07/16 Stop Date: 05/08/16 Status: Discontinued Microzide 12.5 mg, 1 cap, Route: PO, Drug form: CAP, Bedtime, Start date: 05/06/16 21:00:0 0 CDT, Duration: 30 day, Stop date: 06/04/16 21:00:00 CDT Notes: (Same as: Microzide) With food. Start Date: 05/06/16 Stop Date: 05/08/16 Status: Discontinued morphine Sulfate 2 mg, Route: IVP, Drug form: INJ, ONCE, Dosing Weight 75, kg, Priority: STAT, St art date: 05/06/16 0:09:00 CDT, Stop date: 05/06/16 0:09:00 CDT Start Date: 05/06/16 Stop Date: 05/06/16 Status: Completed morphine Sulfate 2 mg, Route: IVP, Drug form: INJ, ONCE, Dosing Weight 75, kg, Priority: STAT, St art date: 05/06/16 1:28:00 CDT, Stop date: 05/06/16 1:28:00 CDT Start Date: 05/06/16 Stop Date: 05/06/16 Status: Completed nitroglycerin 0.4 mg sublingual tablet 0.4 mg, 1 tab, Route: SL, Drug form: TAB, Q5Min, Dosing Weight 71.818, kg, PRN C hest Pain, Start date: 05/07/16 2:25:00 CDT, Duration: 3 doses or times, Stop da te: Limited # of times Notes: (Same as:Nitroquick, Nitrostat)"Do Not Crush" Sublingual tablet Start Date: 05/07/16 Stop Date: 05/08/16 Status: Discontinued Bulger 10/325 oral tablet 2 tab, Route: PO, Drug Form: TAB, Dosing Weight 71.818, kg, Q4H, PRN Pain Score 4-6, Start date: 05/06/16 13:33:00 CDT, Duration: 30 day, Stop date: 06/05/16 13 :32:00 CDT Notes: Do not exceed 4gm/day of acetaminophen. (Same as: Bulger 325/10) Start Date: 05/06/16 Stop Date: 05/08/16 Status: Discontinued nystatin 500,000 unit, TOP, PRN Rash, 0 Refill(s) Start Date: 05/06/16 Status: Ordered PLease bring Pt's Own Arthrotec to pharmacy for label PLease bring Pt's Own Arthrotec to pharmacy for label, Reminder, Drug form: MISC , Route: MISC, Q12H, 05/06/16 21:00:00 CDT, Duration: 30 day, Stop date: 6 9:00:00 CDT Start Date: 05/06/16 Stop Date: 05/08/16 Status: Discontinued potassium chloride 40 mEq, Route: PO, ONCE, Dosing Weight 75, kg, Start date: 05/06/16 5:29:00 CDT, Stop date: 05/06/16 5:29:00 CDT Start Date: 05/06/16 Stop Date: 05/06/16 Status: Completed pravastatin 20 mg, 1 tab, Route: PO, Drug form: TAB, Bedtime, Dosing Weight 71.818, kg, Star t date: 05/06/16 21:00:00 CDT, Duration: 30 day, Stop date: 06/04/16 21:00:00 CD T Notes: (Same as: Pravachol) Start Date: 05/06/16 Stop Date: 05/08/16 Status: Discontinued ProAir HFA 90 mcg/inh inhalation aerosol with adapter 2 puff, Route: INHALATION, Drug Form: AERO/A, Dosing Weight 71.818, kg, Q4H, PRN Wheezing, Start date: 05/06/16 8:56:00 CDT, Duration: 30 day, Stop date: 8:55:00 CDT Notes: Same as: Ventolin HFAWASTE: Aerosol - Return to Pharmacy Start Date: 05/06/16 Stop Date: 05/08/16 Status: Discontinued ProAir HFA 90 mcg/inh inhalation aerosol with adapter 2 puff, INHALATION, Q4H, PRN as needed for wheezing, 0 Refill(s) Start Date: 05/06/16 Status: Ordered Protonix 40 mg, 1 tab, Route: PO, Drug form: ECTAB, Daily, Dosing Weight 71.818, kg, Star t date: 05/06/16 9:00:00 CDT, Duration: 30 day, Stop date: 06/04/16 9:00:00 CDT Notes: Tablet should not be chewed or crushed.(Same as: Protonix) Start Date: 05/06/16 Stop Date: 05/08/16 Status: Discontinued Saline Flush 0.9% 10 ml, Route: IVP, Drug Form: INJ, Dosing Weight 75, kg, PRN, PRN Line Flush, St art date: 05/06/16 6:14:00 CDT, Duration: 30 day, Stop date: 06/05/16 6:13:00 CD T Notes: (Same as: BD Posiflush) Start Date: 05/06/16 Stop Date: 05/08/16 Status: Discontinued Saline Flush 0.9% 10 ml, Route: IVP, Drug Form: INJ, Dosing Weight 75, kg, Q12H, Start date: 05/06 9:00:00 CDT, Duration: 30 day, Stop date: 06/04/16 21:00:00 CDT Notes: (Same as: BD Posiflush) Start Date: 05/06/16 Stop Date: 05/08/16 Status: Discontinued Saline Flush 0.9% 10 mL, Route: IVP, Drug Form: INJ, Dosing Weight 75, kg, PRN, PRN Line Flush, St art date: 05/06/16 0:11:00 CDT, Duration: 30 day, Stop date: 06/05/16 0:10:00 CD T Notes: (Same as: BD Posiflush) Start Date: 05/06/16 Stop Date: 05/07/16 Status: Discontinued sodium chloride 0.9% 1000 ml INJ 1,000 mL 1,000 mL, Rate: 50 ml/hr, Infuse over: 20 hr, Route: IV, Dosing Weight 75 kg, To rafael Volume: 1,000, Start date: 05/06/16 6:14:00 CDT, Duration: 30 day, Stop date : 06/05/16 6:13:00 CDT Start Date: 05/06/16 Stop Date: 05/08/16 Status: Discontinued Toprol-XL 25 mg oral tablet, extended release 25 mg, 1 tab, Route: PO, Drug form: ERTAB, Daily, Start date: 05/06/16 9:00:00 C DT, Duration: 30 day, Stop date: 06/04/16 9:00:00 CDT Notes: (Same as: Toprol XL) Do Not Crush Start Date: 05/06/16 Stop Date: 05/08/16 Status: Discontinued tramadol 50 mg oral tablet 50 mg, 1 tab, Route: PO, Drug form: TAB, Q4H, Dosing Weight 71.818, kg, PRN Pain Score 4-6, Start date: 05/06/16 8:57:00 CDT, Duration: 30 day, Stop date: 06/05 8:56:00 CDT Notes: Not to exceed 400mg/day. (Same As: Ultram) Start Date: 05/06/16 Stop Date: 05/06/16 Status: Discontinued trazodone 25 mg, 0.5 tab, Route: PO, Drug form: TAB, Bedtime, Dosing Weight 71.818, kg, KS N Sleep, Start date: 05/06/16 8:59:00 CDT, Duration: 30 day, Stop date: 06/05/16 8:58:00 CDT, .. Notes: (Same As: Desyrel) Start Date: 05/06/16 Stop Date: 05/08/16 Status: Discontinued trazodone 25 mg, 0.5 tab, Route: PO, Drug form: TAB, Bedtime, Dosing Weight 71.818, kg, St art date: 05/06/16 21:00:00 CDT, Duration: 30 day, Stop date: 06/04/16 21:00:00 CDT Notes: (Same As: Desyrel) Start Date: 05/06/16 Stop Date: 05/08/16 Status: Discontinued Tylenol with Codeine #3 oral tablet 1 - 2 tab, PO, Q4H, PRN Pain, X 3 day, # 20 tab, 0 Refill(s) Start Date: 05/08/16 Stop Date: 05/11/16 Status: Ordered Vicodin 5 mg-300 mg oral tablet 1 tab, PO, Q8H, PRN Pain, X 10 day, # 30 tab, 0 Refill(s) Start Date: 05/08/16 Stop Date: 05/18/16 Status: Ordered Xalatan 1 drp, Route: BOTH EYES, Bedtime, Drug form: SOLN, Start date: 05/06/16 21:00:00 CDT, Duration: 30 day, Stop date: 06/04/16 21:00:00 CDT Notes: Keep refrigerated. (Same as:Xalatan) Start Date: 05/06/16 Stop Date: 05/08/16 Status: Discontinued Zofran 4 mg, Route: IVP, Drug form: INJ, ONCE, Dosing Weight 75, kg, Priority: STAT, St art date: 05/06/16 0:09:00 CDT, Stop date: 05/06/16 0:09:00 CDT Start Date: 05/06/16 Stop Date: 05/06/16 Status: Completed Results ELECTROLYTES 1 2 3 Most recent to oldest [Reference Range]: 138 mEq/L (05/06/16 12:52 AM) Sodium Lvl [135-145 mEq/L] 3.1 mEq/L *LOW* (05/06/16 12:52 AM) Potassium Lvl [3.5-5.1 mEq/L] 105 mEq/L (05/06/16 12:52 AM) Chloride Lvl [95-109 mEq/L] 24 mEq/L (05/06/16 12:52 AM) CO2 [24-32 mEq/L] 12.1 mEq/L (05/06/16 12:52 AM) AGAP [10.0-20.0 mEq/L] CHEM PANEL 1 2 3 Most recent to oldest [Reference Range]: 1.08 mg/dL (05/06/16 12:52 AM) Creatinine Lvl [0.50-1.40 mg/dL] 49 mL/min/1.73m2 1 *NA* (05/06/16 12:52 AM) eGFR 16 mg/dL (05/06/16 12:52 AM) BUN [7-22 mg/dL] 127 mg/dL *HI* (05/06/16 12:52 AM) Glucose Lvl [70-99 mg/dL] 8.1 mg/dL *LOW* (05/06/16 12:52 AM) Calcium Lvl [8.5-10.5 mg/dL] 1Result Comment: The eGFR is calculated using [...] tiplied by the estimated BMI. CARDIAC ENZYMES 1 2 3 Most recent to oldest [Reference Range]: 305 unit/L *HI* (05/06/16 3:49 PM) 294 unit/L *HI* (05/06/16 6:47 AM) 229 unit/L *HI* (05/06/16 12:52 AM) Total CK [12-191 unit/L] 3.3 ng/mL (05/06/16 3:49 PM) 4.2 ng/mL *HI* (05/06/16 6:47 AM) 3.5 ng/mL (05/06/16 12:52 AM) CK MB [0.5-3.6 ng/mL] 1.1 (05/06/16 3:49 PM) 1.4 (05/06/16 6:47 AM) 1.5 (05/06/16 12:52 AM) CK MB Index [0.0-2.5] <0.02 ng/mL (05/06/16 3:49 PM) <0.02 ng/mL (05/06/16 6:47 AM) <0.02 ng/mL (05/06/16 12:52 AM) Troponin-I [0.00-0.40 ng/mL] HEMATOLOGY 1 2 3 Most recent to oldest [Reference Range]: 11.2 K/CMM *HI* (05/06/16 12:52 AM) WBC [3.7-10.4 K/CMM] 4.23 M/CMM (05/06/16 12:52 AM) RBC [4.20-5.40 M/CMM] 11.8 g/dL *LOW* (05/06/16 12:52 AM) Hgb [12.0-16.0 g/dL] 36.9 % (05/06/16 12:52 AM) Hct [36.0-48.0 %] 87.4 fL (05/06/16 12:52 AM) MCV [80.0-98.0 fL] 28.0 pg (05/06/16 12:52 AM) MCH [27.0-31.0 pg] 32.0 g/dL (05/06/16 12:52 AM) MCHC [32.0-36.0 g/dL] 13.1 % (05/06/16 12:52 AM) RDW [11.5-14.5 %] 218 K/CMM (05/06/16 12:52 AM) Platelet [133-450 K/CMM] 8.2 fL (05/06/16 12:52 AM) MPV [7.4-10.4 fL] 75.2 % *HI* (05/06/16 12:52 AM) Segs [45.0-75.0 %] 15.8 % *LOW* (05/06/16 12:52 AM) Lymphocytes [20.0-40.0 %] 6.4 % (05/06/16 12:52 AM) Monocytes [2.0-12.0 %] 1.7 % (05/06/16 12:52 AM) Eosinophils [0.0-4.0 %] 0.9 % (05/06/16 12:52 AM) Basophils [0.0-1.0 %] 8.4 K/CMM *HI* (05/06/16 12:52 AM) Segs-Bands # [1.5-8.1 K/CMM] 1.8 K/CMM (05/06/16 12:52 AM) Lymphocytes # [1.0-5.5 K/CMM] 0.7 K/CMM (05/06/16 12:52 AM) Monocytes # [0.0-0.8 K/CMM] 0.2 K/CMM (05/06/16 12:52 AM) Eosinophils # [0.0-0.5 K/CMM] 0.1 K/CMM (05/06/16 12:52 AM) Basophils # [0.0-0.2 K/CMM] 15.0 seconds *HI* (05/06/16 12:52 AM) PT [12.0-14.7 seconds] 1.15 (05/06/16 12:52 AM) INR [0.85-1.17] 27.7 seconds (05/06/16 12:52 AM) PTT [22.9-35.8 seconds] Immunizations Given and Recorded Vaccine Date Status [...] Smoking Cessation Counseling No Assessment and Plan Extracted from: Title: Clinical Document Author: Popeye Stern MD Date: 05/08/16 Progress Note - Daily [facility] Completed: May, 14:22 by Popeye Stern MD RM: 152 - 1D, SE [id number] [id number] (: 1935) F Attending: Popeye Stern MDPhone: Service: Internal Medicine Reason for Admission: SYNCOPE, COLLAPSE Working DRG: Syncope & collapse Code status: Full Code [Ordered]Current diet: Isolation: None Documented Allergies: sulfa drugs SUBJECTIVE OBJECTIVE (no lab data in past 24 hours) Ayala still necessary (Yes/No): Line still necessary (Yes/No): VitalsTmp(F)[id number] 05/08 12:[id number]/[id number]--- 05/08 08:0097.468642/757312--- 05/08 04:4497.851874/7018------ 05/08 00:0698.984164/7218------ 05/07 19:5598.948454/7418------ 24 Hr Tmax: 98.4F (36.89c) at 05/07 19:55Vital Signs are the last 5 in the past 48 hours. DateWt(kg)Wt(lb)Ht(cm)Ht(in)Method 05/06 71.82 158.34908.86 59.00Measured 05/05 (initial) 75.00 165.73924.40 60.00Estimated I&ORecordInOutBal 05/824hr Tot 100 0 100 05/724hr Tot 1450 0 1450 Medications (20) Active Scheduled Meds (12): 05/06/16 aspirin 81 mg PO Daily 05/06/16 diclofenac-misoprostol (Arthrotec 75 mg-200 mcg oral tablet) 1 tab PO Bedtime 05/06/16 hydrochlorothiazide (Microzide) 12.5 mg PO Bedtime 05/06/16 latanoprost ophthalmic (Xalatan) 1 drp BOTH EYES Bedtime 05/06/16 levothyroxine 25 microgram PO Q6AM 05/06/16 losartan (Cozaar) 100 mg PO Bedtime 05/06/16 metoprolol (Toprol-XL 25 mg oral tablet, extended release) 25 mg PO Daily 05/06/16 non-formulary (PLease bring Pt's Own Arthrotec to pharmacy for label) MISC Q12H 05/06/16 pantoprazole (Protonix) 40 mg PO Daily 05/06/16 pravastatin 20 mg PO Bedtime 05/06/16 sodium chloride (Saline Flush 0.9%) 10 ml IVP Q12H 05/06/16 trazodone 25 mg PO Bedtime Unscheduled Meds: None PRN Meds (7): 05/06/16 LORazepam (Ativan) 1 mg IVP Q8H 05/06/16 acetaminophen-hydrocodone (Bulger 10/325 oral tablet) 2 tab PO Q4H 05/06/16 albuterol (ProAir HFA 90 mcg/inh inhalation aerosol with adapter) 2 puff INHALATION Q4H 05/06/16 loperamide (Imodium A-D) 2 mg PO Q4H 05/07/16 nitroglycerin (nitroglycerin 0.4 mg sublingual tablet) 0.4 mg SL Q5Min 05/06/16 sodium chloride (Saline Flush 0.9%) 10 ml IVP PRN 05/06/16 trazodone 25 mg PO Bedtime One Time Meds: None Continuous Infusions (1): 05/06/16 sodium chloride 0.9% 1000 ml INJ 1,000 mL 1,000 mL 50 ml/hr ASSESSMENT & EXAM PLAN & TREATMENT DIAGNOSES & PROBLEMS [id number] Ready for Discharge (Yes/No)? TEACHING ATTESTATION
--- OUTSIDE RECORDS SUMMARY | 2019-01-19 05:40 | XMS REPORT ---
Author Author Anay De Leon [facility] eClinicalWorks Address Unknown Phone Unavailable Care Team Providers Care Counter Top Maker Name Role Phone Gayle Anay Whitney CP Unavailable Allergies, Adverse Reactions, Alerts Substance Reaction Event Type sulfa Info Not Available Drug Allergy Problems Problem Type Condition Code Onset Dates Condition Status Assessment Abnormal nuclear cardiac imaging test R93.1 Active Assessment Elevated alkaline phosphatase level R74.8 Active Problem Raynaud's syndrome I73.00 Active Assessment Hyperlipidemia, unspecified E78.5 Active Problem Peripheral vascular disease I73.9 Active Assessment Essential hypertension I10 Active Problem COPD (chronic obstructive pulmonary disease) J44.9 Active Problem Osteoarthritis M19.90 Active Problem Migraines G43.909 Active Problem BMI 30.0-30.9,adult Z68.30 Active Problem Obesity (BMI 30-39.9) E66.9 Active Problem Insomnia G47.00 Active Problem GERD (gastroesophageal reflux disease) K21.9 Active Problem Sciatica of right side M54.31 Active Assessment Hypothyroid E03.9 Active Problem Diabetes E11.9 Active Problem Hypothyroid [...] Instructions Start Date End Date Status Dosage Nystatin [facility] 13046463699 521092 UNIT/GM Externally Twice a day Nov 10, 2017 Nov 05, 2018 Active 1 application to affected area Zolpidem Tartrate ND 82849361349 10 mg Orally qhs Active 1 tablet Metoprolol Succinate ER ND 28964345052 25 MG Orally Once a day Active 1 tablet Pantoprazole Sodium ND 58996353481 40 mg Orally Once a day Nov 05, 2015 Active 1 tablet Diclofenac Sodium ND 20421788877 75 mg Orally Once a day Dec 09, 2016 Nov 05, 2018 Active 1 tablet Ventolin HFA [facility] 47017204105 108 (90 Base) MCG/ACT Inhalation every 4 hrs Nov 05, 2015 Active 2 puffs MetFORMIN HCl ER ND 18940603815 500 mg Orally Once a day Nov 26, 2015 Active 1 tablet with evening meal Losartan Potassium-HCTZ [facility] 22166950512 100-12.5 MG Orally Once a day Nov 26, 2015 Active 1/2 tablet Synthroid [facility] 50780809666 75 MCG Orally Once a day Dec 02, 2017 Active 1 tablet on an empty stomach in the morning Lumigan [facility] 01024282139 0.01 % Ophthalmic Once a day Active 1 drop into affected eye in the evening Pravastatin Sodium [facility] 26802190621 20 Orally Once a day Active 1 tablet Misoprostol [facility] 04537306733 200 MCG Orally once a day Dec 09, 2016 Nov 05, 2018 Active 1 tablet with food Imitrex [facility] 03731330010 50 MG Orally at headache onset, march repeat in 2 hours, max 2 a day March 29, 2014 Active 1 tablet Vital Signs Date/Time: January 12, 2018 BMI 28.90 Index Weight 148 lbs Height 60 in Cardiac Monitoring Heart Rate 86 /min Blood Pressure Diastolic 64 mm Hg Blood Pressure Systolic 112 mm Hg Results No Known Results Summary Purpose eClinicalWorks Submission
--- OUTSIDE RECORDS SUMMARY | 2019-01-19 05:40 | XMS REPORT ---
Author Author Anay De Leon [facility] eClinicalWorks Address Unknown Phone Unavailable Care Team Providers Care Director Executive Communications Name Role Phone Anay De Leon CP Unavailable Allergies, Adverse Reactions, Alerts Substance Reaction Event Type sulfa Info Not Available Drug Allergy Problems Problem Type Condition Code Onset Dates Condition Status Assessment Postmenopausal Z78.0 Active Assessment Sciatica of right side M54.31 Active Assessment Lymphadenopathy R59.1 Active Assessment Diabetes E11.9 Active Problem Raynaud's syndrome I73.00 Active Assessment Hypothyroid E03.9 Active Problem Peripheral vascular disease I73.9 Active [...] Start Date End Date Status Dosage Synthroid [facility] [address]-45 50 MCG Orally Once a day Aug 26, 2016 Active 1 tablet Lumigan [facility] [address]-61 0.01 % Ophthalmic Once a day Active 1 drop into affected eye in the evening Pantoprazole Sodium [facility] [address]-68 40 mg Orally Once a day Nov 05, 2015 Active 1 tablet Losartan Potassium-HCTZ [facility] [address]-42 100-12.5 MG Orally Once a day Nov 26, 2015 Active 1/2 tablet Diclofenac Sodium [facility] [address]-45 75 MG Orally Once a day Dec 09, 2016 Dec 04, 2017 Active 1 tablet Amitriptyline HCl [facility] 86944058550 10 Orally qhs prn Active 1 tablet Nystatin [facility] 55859593001 100,000 Externally Twice a day Active as directed Misoprostol [facility] [address]-20 200 MCG Orally once a day Dec 09, 2016 Dec 04, 2017 Active 1 tablet with food MetFORMIN HCl ER [facility] [address]-82 500 MG Orally Once a day Nov 26, 2015 Active 1 tablet with evening meal Losartan Potassium-HCTZ [facility] 06507464640 100-12.5 Active TAKE ONE TABLET BY MOUTH DAILY Pravastatin Sodium [facility] 28651642022 20 Active TAKE ONE TABLET BY MOUTH DAILY Augmentin [facility] [address]-31 875-125 MG Orally every 12 hrs May 24, 2017 Jun 03, 2017 Active 1 tablet Medrol ([place]) ND 0 4 MG Orally daily May 24, 2017 May 31, 2017 Active as directed Ventolin HFA [facility] 67377638306 90 Active INHALE TWO PUFFS BY MOUTH EVERY 4 HOURS Imitrex [facility] [address]-17 50 MG Orally at headache onset, may repeat in 2 hours, max 2 a day March 29, 2014 Active 1 tablet Zolpidem Tartrate [facility] [address]-71 10 MG Orally qhs Active 1 tablet Pantoprazole Sodium [facility] 27641213134 40 Active TAKE ONE TABLET BY MOUTH DAILY Ventolin HFA [facility] [address]-55 108 (90 Base) MCG/ACT Inhalation every 4 hrs Nov 05, 2015 Active 2 puffs Metoprolol Succinate ER [facility] [address]-81 25 MG Orally Once a day Active 1 tablet Tramadol HCl [facility] [address]-99 50 MG Orally every 6 hrs prn pain Aug 02, 2017 Active 1 tablet Vital Signs Date/Time: May 24, 2017 BMI 29.88 Index Weight 153 lbs Height 60 in Cardiac Monitoring Heart Rate 86 /min Blood Pressure Diastolic 66 mm Hg Blood Pressure Systolic 122 mm Hg Results No Known Results Summary Purpose eClinicalWorks Submission
--- OUTSIDE RECORDS SUMMARY | 2019-01-19 05:40 | XMS REPORT ---
Author Author Anay De Leon [facility] eClinicalWorks Address Unknown Phone Unavailable Care Team Providers Care Lugger Name Role Phone Anay De Leon CP Unavailable Allergies No Known Allergies Problems Problem Type Condition Code Onset Dates Condition Status Problem Migraines G43.909 Active Problem COPD (chronic obstructive pulmonary disease) J44.9 Active Problem Osteoarthritis M19.90 Active Problem Sciatica of right side M54.31 Active Problem Obesity (BMI 30-39.9) E66.9 Active Assessment Sciatica M54.30 Active Problem Coronary artery disease involving [place] coronary artery of [place] heart without angina pectoris I25.10 Active Problem Diabetes E11.9 Active Problem Hypothyroid E03.9 Active Problem Osteopenia M85.80 Active Problem BMI 30.0-30.9,adult Z68.30 Active Problem 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 Problem Tinea corporis B35.4 Active Problem Insomnia G47.00 Active Problem GERD (gastroesophageal reflux disease) K21.9 Active Problem Hyperlipidemia, unspecified E78.5 Active Problem Vitamin D deficiency E55.9 Active Problem Elevated alkaline phosphatase level R74.8 Active Problem Raynaud's syndrome I73.00 Active Problem Essential hypertension I10 Active Problem Peripheral vascular disease I73.9 Active Medications Medication Code System Code Instructions Start Date End Date Status Dosage Tramadol HCl [facility] 62316342364 50 mg Orally every 6-8 hrs prn pain Oct 20, 2018 Active 1 tablet Results No Known Results Summary Purpose eClinicalWorks Submission
--- OUTSIDE RECORDS SUMMARY | 2019-01-19 05:40 | XMS REPORT ---
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
--- OUTSIDE RECORDS SUMMARY | 2019-01-19 05:40 | XMS REPORT ---
Author Author Anay De Leon Organization eClinicalWorks Address Unknown Phone Unavailable Care Team Providers Care Family Literacy Coordinator Name Role Phone Anay De Leon CP Unavailable Allergies No Known Allergies Problems Problem Type Condition Code Onset Dates Condition Status Problem COPD (chronic obstructive pulmonary disease) J44.9 Active Problem Osteoarthritis M19.90 Active Problem Migraines G43.909 Active Problem BMI 30.0-30.9,adult Z68.30 Active Problem Insomnia G47.00 Active Problem Obesity (BMI 30-39.9) E66.9 Active Problem GERD (gastroesophageal reflux disease) K21.9 Active Assessment Abnormal levels of other serum enzymes R74.8 Active Problem Sciatica of right side [...]
--- OUTSIDE RECORDS SUMMARY | 2019-01-19 05:40 | XMS REPORT ---
Author Author Anay De Leon [facility] eClinicalWorks Address Unknown Phone Unavailable Care Team Providers Care Ginseng Farmer Name Role Phone Anay De Leon CP [...]
--- OUTSIDE RECORDS SUMMARY | 2019-01-19 05:40 | XMS REPORT ---
Author Author Anay De Leon [facility] eClinicalWorks Address Unknown Phone Unavailable Care Team Providers Care Asbestos Handler Name Role Phone Anay De Leon CP Unavailable Allergies, Adverse Reactions, Alerts Substance Reaction Event Type sulfa Info Not Available Drug Allergy Problems Problem Type Condition Code Onset Dates Condition Status Assessment Degenerative arthritis M19.90 Active Assessment Monilia infection B37.9 Active Assessment GERD (gastroesophageal reflux disease) K21.9 Active Assessment Insomnia G47.00 Active Assessment COPD (chronic obstructive pulmonary disease) J44.9 Active Assessment Migraines G43.909 Active Assessment Diabetes E11.9 Active Problem Raynaud's [...] Start Date End Date Status Dosage Nystatin [facility] 96556907175 156990 UNIT/GM Externally Twice a day Nov 10, 2017 Nov 05, 2018 Active 1 application to affected area Aspirin Adult Low Dose [facility] 43761698304 81 MG Orally Once a day Active 1 tablet Losartan Potassium-HCTZ [facility] 97906036979 100-12.5 Active TAKE ONE TABLET BY MOUTH DAILY Imitrex [facility] 80113463297 50 MG Orally at headache onset, may repeat in 2 hours, max 2 a day March 29, 2014 Active 1 tablet Pravastatin Sodium [facility] 64246763023 20 Orally Once a day Active 1 tablet Synthroid [facility] 50989639588 75 MCG Orally qd LAST REFILL, NEEDS BLOOD WORK March 02, 2018 Active 1 tablet on an empty stomach in the morning Losartan Potassium-HCTZ [facility] 22532429039 100-12.5 MG Orally Once a day Nov 26, 2015 Active 1/2 tablet MetFORMIN HCl ER [facility] 18055380470 500 mg Orally Once a day Nov 26, 2015 Active 1 tablet with evening meal Metoprolol Succinate ER [facility] 12809483969 25 MG Orally Once a day Active 1 tablet Synthroid [facility] [address]-61 75 Orally daily Active 1 capsule Zolpidem Tartrate [facility] 18321290212 10 mg Orally qhs Active 1 tablet Lumigan [facility] 79300443541 0.01 % Ophthalmic Once a day Active 1 drop into affected eye in the evening Ventolin HFA [facility] 56520868094 108 (90 Base) MCG/ACT Inhalation every 4 hrs Nov 05, 2015 Active 2 puffs Diclofenac Sodium [facility] 02609945910 75 mg Orally Once a day Dec 09, 2016 Nov 05, 2018 Active 1 tablet Misoprostol [facility] 87370499807 200 MCG Orally once a day Dec 09, 2016 Nov 05, 2018 Active 1 tablet with food Pantoprazole Sodium [facility] 88201777163 40 mg Orally Once a day Nov 05, 2015 Active 1 tablet Vital Signs Date/Time: April 13, 2018 BMI 29.29 Index Weight 150 lbs Height 60 in Cardiac Monitoring Heart Rate 85 /min Blood Pressure Diastolic 64 mm Hg Blood Pressure Systolic 108 mm Hg Results No Known Results Summary Purpose eClinicalWorks Submission
--- OUTSIDE RECORDS SUMMARY | 2019-01-19 05:41 | XMS REPORT ---
Author Author Anay De Leon [facility] eClinicalWorks Address Unknown Phone Unavailable Care Team Providers Care Photographer'S Model Name Role Phone Anay De Leon Unavailable Allergies No Known Allergies Problems Problem Type Condition Code Onset Dates Condition Status Problem COPD (chronic obstructive pulmonary disease) J44.9 Active Problem Diabetes E11.9 Active Problem Hypothyroid E03.9 Active Problem Vaginal odor N94.9 Active Problem GERD (gastroesophageal reflux disease) K21.9 Active Problem Coronary artery disease involving [place] coronary artery of [place] heart without angina pectoris I25.10 Active Problem Insomnia G47.00 Active Problem Carotid stenosis I65.29 Active Problem BMI 30.0-30.9,adult Z68.30 Active Problem Obesity (BMI 30-39.9) E66.9 Active Problem Sciatica of right side M54.31 Active Problem Osteopenia M85.80 Active Problem 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 Problem Hyperlipidemia, unspecified E78.5 Active Problem Tinea corporis B35.4 Active Problem Elevated alkaline phosphatase level R74.8 Active Problem Raynaud's syndrome I73.00 Active Problem Peripheral vascular disease I73.9 Active Problem Essential hypertension I10 Active Problem Migraines G43.909 Active Assessment Hypothyroid E03.9 Active Problem Vitamin D deficiency E55.9 Active Problem Osteoarthritis M19.90 Active Medications Medication Code System Code Instructions Start Date End Date Status Dosage Levothyroxine Sodium ND 62058841957 75 MCG Oral Inactive not defined Levothyroxine Sodium [facility]DC 45863532527 100 MCG Orally Once a day Dec 02, 2018 Active 1 tablet on an empty stomach in the morning Results No Known Results Summary Purpose eClinicalWorks Submission
--- OUTSIDE RECORDS SUMMARY | 2019-01-19 05:41 | XMS REPORT ---
Author Author Bee Perales [facility] eClinicalWorks Address Unknown Phone Unavailable Care Team Providers Care Marketing Technology Coordinator Name Role Phone Bee Perales CP Unavailable Allergies, Adverse Reactions, Alerts Substance Reaction Event Type sulfa Info Not Available Drug Allergy Problems Problem Type Condition Code Onset Dates Condition Status Assessment Atypical nevus D22.9 Active Assessment Sciatica of right side M54.31 Active Assessment Elevated alkaline phosphatase level R74.8 Active Assessment Coronary artery disease involving [place] coronary artery of [place] heart without angina pectoris I25.10 Active Assessment Raynaud's syndrome I73.00 Active Assessment 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 Assessment Peripheral vascular disease I73.9 Active Assessment Insomnia G47.00 Active Problem Raynaud's syndrome I73.00 Active Assessment COPD (chronic obstructive pulmonary disease) J44.9 Active Problem Peripheral vascular disease I73.9 Active Assessment Diabetes E11.9 Active Problem Migraines G43.909 Active Problem COPD (chronic obstructive pulmonary disease) J44.9 Active Problem Osteoarthritis M19.90 Active Problem Sciatica of right side M54.31 Active Problem Obesity (BMI 30-39.9) E66.9 Active Assessment Essential hypertension I10 Active Assessment Hyperlipidemia, unspecified E78.5 Active Problem Coronary artery disease involving [place] coronary artery of [place] heart without angina pectoris I25.10 Active Assessment Hypothyroid E03.9 Active Problem Diabetes E11.9 Active Problem Hypothyroid E03.9 Active Problem Osteopenia M85.80 Active Problem BMI 30.0-30.9,adult Z68.30 Active Problem 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 Problem Tinea corporis B35.4 Active Problem Insomnia G47.00 Active Problem GERD (gastroesophageal reflux disease) K21.9 Active Problem Hyperlipidemia, unspecified E78.5 Active Problem Vitamin D deficiency E55.9 Active Problem Elevated alkaline phosphatase level R74.8 Active Problem Essential hypertension I10 Active Medications Medication Code System Code Instructions Start Date End Date Status Dosage Kayli [facility] 76393207111 0.01 % Ophthalmic Once a day Active 1 drop into affected eye in the evening Pravastatin Sodium [facility] 00012955385 20 Orally Once a day Active 1 tablet Losartan Potassium-HCTZ [facility] 00547998699 100-12.5 Active TAKE ONE TABLET BY MOUTH DAILY Nystatin [facility] 42605719487 352976 UNIT/GM Externally Twice a day Nov 10, 2017 Nov 05, 2018 Active 1 application to affected area Pantoprazole Sodium [facility] 24706369694 40 mg Orally Once a day Nov 05, 2015 Active 1 tablet Metoprolol Succinate ER [facility] 45721673303 25 MG Orally Once a day Active 1 tablet Zolpidem Tartrate [facility] 66678047792 10 mg Orally qhs Active 1 tablet Tramadol HCl [facility] 49869104266 50 mg Orally prn Jun 04, 2018 Active 1 tablet as needed Synthroid [facility] [address]-26 75 Orally daily Active 1 capsule Aspirin Adult Low Dose [facility] 54727723139 81 MG Orally Once a day Active 1 tablet Imitrex [facility] 26543365045 50 MG Orally at headache onset, march repeat in 2 hours, max 2 a day March 29, 2014 Active 1 tablet Misoprostol [facility] 84347536062 200 MCG Orally once a day Dec 09, 2016 Nov 05, 2018 Active 1 tablet with food Clobetasol Propionate [facility] 56313008194 0.05 % Externally Twice a day PRN May 05, 2018 Jun 04, 2018 Active 1 application to affected area MetFORMIN HCl ER [facility] 05008691347 500 mg Orally Once a day Nov 26, 2015 Active 1 tablet with evening meal Ventolin HFA [facility] 96714429499 108 (90 Base) MCG/ACT Inhalation every 4 hrs Nov 05, 2015 Active 2 puffs Diclofenac Sodium [facility] 33120685141 75 mg Orally Once a day Dec 09, 2016 Nov 05, 2018 Active 1 tablet Vital Signs Date/Time: May 05, 2018 BMI 28.90 Index Weight 148 lbs Height 60 in Cardiac Monitoring Heart Rate 80 /min Blood Pressure Diastolic 70 mm Hg Blood Pressure Systolic 118 mm Hg Results No Known Results Summary Purpose eClinicalWorks Submission
--- OUTSIDE RECORDS SUMMARY | 2019-01-19 05:41 | XMS REPORT ---
Author Author Anay De Leon Organization eClinicalWorks Address Unknown Phone Unavailable Care Team Providers Care Animal Groomer Name Role Phone Anay De Leon Unavailable Encounters Encounter Location Date 3 MONTH FOLLOW UP [facility] February 25, 2016 New Refill Request [facility] March 03, 2016 lab results and new rx [facility] March 06, 2016 3 MONTH FOLLOW UP [facility] May 14, 2016 [place]-LABS [facility] Jun 17, 2015 Other [facility] Dec 07, 2016 RESULTS/GALLBLADDER CK [facility] Jun 21, 2015 Physical exam and FBW [facility] Nov 05, 2015 PHYSICAL [facility] Nov 09, 2016 3 MONTH FOLLOW UP [facility] Aug 04, 2016 Test results [facility] Aug 26, 2016 Problems Problem Type Condition ICD-9 Code Onset Dates Condition Status Problem Peripheral vascular disease I73.9 Active Problem Migraines G43.909 Active Problem Osteoarthritis M19.90 Active Problem BMI 30.0-30.9,adult Z68.30 Active Problem Elevated alkaline phosphatase level R74.8 Active Problem Obesity (BMI 30-39.9) E66.9 Active Problem Osteopenia M85.80 Active Problem Hypothyroid E03.9 Active Problem COPD (chronic obstructive pulmonary disease) J44.9 Active Problem Arthritis M19.90 Active Problem Diabetes E11.9 Active Problem Degenerative arthritis M19.90 Active Problem GERD (gastroesophageal reflux disease) K21.9 Active Problem Insomnia G47.00 Active Problem Tinea corporis B35.4 Active Problem Essential hypertension I10 Active Problem Sciatica M54.30 Active Problem 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 Problem Vitamin D deficiency E55.9 Active Problem Hyperlipidemia, unspecified E78.5 Active Problem Raynaud's syndrome I73.00 Active Medications Medication Code System Code Instructions Start Date End Date Status Dosage Misoprostol [facility] [address]-21 200 MCG Orally once a day Dec 09, 2016 Dec 04, 2017 Active 1 tablet with food Diclofenac Sodium [facility] [address]-59 75 MG Orally Once a day Dec 09, 2016 Dec 04, 2017 Active 1 tablet Arthrotec [facility] 29037469043 75-200 Inactive TAKE ONE TABLET BY MOUTH DAILY Social History Social History Element Qualifiers Date Reported 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 cross stitching Nov 09, 2016 Ethnicity . Status , Is su[place]ese your primary language? Yes Nov 09, 2016 children . 2 Nov 09, 2016 Last Colonoscopy: . 2013Nov 09, 2016 Tobacco Use: . Are you a: never smoker Nov 09, 2016 Use of recreational / street drugs? . Answer: No Nov 09, 2016 Where or with whom do you live ? . lives alone in own home, sometimes with grandson Nov 09, 2016 Fall Risk: . none in the past year Nov 09, 2016 Marital Status: . Nov 09, 2016 Pneumoccocal Vaccine . Yes Nov 09, 2016 Caffeine intake? . Status: Yes, What type: Soft Drinks, 1 -2 can(s)/bottle(s) a day up to 4 daily Nov 09, 2016 Do you exercise? . Answer: Yes, Type: biking Nov 09, 2016 Flu Vaccine: . 2015Nov 09, 2016 Depression Screening: . negative Nov 09, 2016 Do you drink alcohol? . Status: No Nov 09, 2016 Summary Purpose eClinicalWorks Submission
--- OUTSIDE RECORDS SUMMARY | 2019-01-19 05:41 | XMS REPORT ---
Author Author Anay De Leon [facility] eClinicalWorks Address Unknown Phone Unavailable Care Team Providers Care Yarn Sizer Name Role Phone Anay De Leon Unavailable Encounters Encounter Location Date 3 MONTH FOLLOW UP [facility] February 25, 2016 New Refill Request [facility] March 03, 2016 [place]-LABS [facility] Jun 17, 2015 RESULTS/GALLBLADDER CK [facility] Jun 21, 2015 Physical exam and FBW [facility] Nov 05, 2015 Problems Problem Type Condition ICD-9 Code Onset Dates Condition Status Problem Essential hypertension I10 Active Problem Vitamin D deficiency E55.9 Active Problem Sciatica M54.30 Active Problem Hypothyroid E03.9 Active Problem COPD (chronic obstructive pulmonary disease) J44.9 Active Problem Diabetes E11.9 Active Problem Peripheral vascular disease I73.9 Active Problem Raynaud's syndrome I73.00 Active Problem Migraines G43.909 Active Problem Osteoarthritis M19.90 Active Problem Elevated alkaline phosphatase level R74.8 Active Problem Prediabetes R73.09 Active Problem Degenerative arthritis M19.90 Active Problem GERD (gastroesophageal reflux disease) K21.9 Active Problem Insomnia G47.00 Active Problem 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 cross stitching February 25, 2016 Ethnicity . Status , Is trinidadian your primary language? Yes February 25, 2016 children . 2 February 25, 2016 Last Colonoscopy: . 2013February 25, 2016 Tobacco Use: . Are you a: never smoker February 25, 2016 Use of recreational / street drugs? . Answer: No February 25, 2016 Where or with whom do you live ? . lives alone in own home, sometimes with grandson February 25, 2016 Fall Risk: . none in the past year February 25, 2016 Marital Status: . February 25, 2016 Pneumoccocal Vaccine . Yes February 25, 2016 Caffeine intake? . Status: Yes, What type: Soft Drinks, 1 -2 can(s)/bottle(s) a day up to 4 daily February 25, 2016 Do you exercise? . Answer: Yes, Type: biking February 25, 2016 Flu Vaccine: . Refuse, 2015 February 25, 2016 Depression Screening: . negative February 25, 2016 Do you drink alcohol? . Status: No February 25, 2016 Summary Purpose eClinicalWorks Submission
--- OUTSIDE RECORDS SUMMARY | 2019-01-19 05:41 | XMS REPORT ---
Author Author Anay De Leon [facility] eClinicalWorks Address Unknown Phone Unavailable Care Team Providers Care Lmft Name Role Phone Anay De Leon CP Unavailable Allergies, Adverse Reactions, Alerts Substance Reaction Event Type sulfa Info Not Available Drug Allergy Encounters Encounter Location Date 3 MONTH FOLLOW UP [facility] February 25, 2016 New Refill Request [facility] March 03, 2016 lab results and new rx [facility] March 06, 2016 3 MONTH FOLLOW UP [facility] May 14, 2016 NV-LABS [facility] Jun 17, 2015 RESULTS/GALLBLADDER CK [facility] Jun 21, 2015 Physical exam and FBW [facility] Nov 05, 2015 PHYSICAL [facility] Nov 09, 2016 3 MONTH FOLLOW UP [facility] Aug 04, 2016 Test results [facility] Aug 26, 2016 Problems Problem Type Condition ICD-9 Code Onset Dates Condition Status Assessment Screening for malignant neoplasm of breast Z12.39 Active Assessment BMI 30.0-30.9,adult Z68.30 Active Assessment Diabetes E11.9 Active Assessment Osteopenia M85.80 Active Assessment Migraines G43.909 Active Assessment COPD (chronic obstructive pulmonary disease) J44.9 Active Assessment Insomnia G47.00 Active Assessment GERD (gastroesophageal reflux disease) K21.9 Active Assessment Hyperlipidemia, unspecified E78.5 Active Problem Vitamin D deficiency E55.9 Active Assessment Essential hypertension I10 Active Problem Raynaud's syndrome I73.00 Active Assessment Vitamin D deficiency E55.9 Active Problem Peripheral vascular disease I73.9 Active Problem Migraines G43.909 Active Problem Osteoarthritis M19.90 Active Problem BMI 30.0-30.9,adult Z68.30 Active Problem Obesity (BMI 30-39.9) E66.9 Active Problem Elevated alkaline phosphatase level R74.8 Active Assessment Routine general medical examination at a health care facility Z00.00 Active Problem Osteopenia M85.80 Active Assessment Hypothyroid E03.9 Active Problem Hypothyroid E03.9 Active Problem COPD (chronic obstructive pulmonary disease) J44.9 Active Problem Arthritis M19.90 Active Problem Diabetes E11.9 Active Assessment Arthritis M19.90 Active Problem Degenerative arthritis M19.90 Active Assessment Obesity (BMI 30-39.9) E66.9 Active Problem GERD (gastroesophageal reflux disease) K21.9 Active Problem Insomnia G47.00 Active Assessment History of GI bleed Z87.19 Active Problem Tinea corporis B35.4 Active Problem Essential hypertension I10 Active Problem Sciatica M54.30 Active Problem 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 Problem Hyperlipidemia, unspecified E78.5 Active Medications Medication Code System Code Instructions Start Date End Date Status Dosage MetFORMIN HCl ER [facility] [address]-54 500 mg Orally Once a day Nov 26, 2015 Active 1 tablet with evening meal Zolpidem Tartrate [facility] [address]-38 10 MG Orally qhs Active 1 tablet Metoprolol Succinate ER [facility] [address]-25 25 MG Orally Once a day Active 1 tablet Pantoprazole Sodium [facility] 67470754465 40 Active TAKE ONE TABLET BY MOUTH DAILY Losartan Potassium-HCTZ [facility] [address]-11 100-12.5 MG Orally Once a day Nov 26, 2015 Active 1/2 tablet Amitriptyline HCl [facility] 25745620905 10 Active TAKE ONE TABLET BY MOUTH EVERY NIGHT AT BEDTIME Ventolin HFA [facility] [address]-05 108 (90 Base) MCG/ACT Inhalation every 4 hrs Nov 05, 2015 Active 2 puffs Imitrex [facility] [address]-41 50 MG Orally at headache onset, may repeat in 2 hours, max 2 a day March 29, 2014 Active 1 tablet Lumigan [facility] [address]-10 0.01 % Ophthalmic Once a day Active 1 drop into affected eye in the evening Pravastatin Sodium [facility] 94717693332 20 Orally Once a day Active 1 tablet Pravastatin Sodium [facility] [address]-57 20 mg Orally Once a day Inactive 1 tablet Pantoprazole Sodium [facility] [address]-09 40 mg Orally Once a day Nov 05, 2015 Active 1 tablet Nystatin [facility] 95205871953 100,000 Externally Twice a day Active as directed Synthroid [facility] [address]-27 50 MCG Orally Once a day Aug 26, 2016 Active 1 tablet Losartan Potassium-HCTZ [facility] 62485702442 100-12.5 Active TAKE ONE TABLET BY MOUTH DAILY Social History Social History Element Qualifiers Date Reported 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 cross stitching Nov 09, 2016 Ethnicity . Status , Is amharic your primary language? Yes Nov 09, 2016 [...] biking Nov 09, 2016 Flu Vaccine: . 2016 Nov 09, 2016 Depression Screening: . negative Nov 09, 2016 Do you drink alcohol? . Status: No Nov 09, 2016 Vital Signs Date/Time: Nov 09, 2016 Weight 154 lbs Height 60 in Cardiac Monitoring Heart Rate 60 /min Blood Pressure Diastolic 69 mm Hg Blood Pressure Systolic 124 mm Hg Summary Purpose eClinicalWorks Submission
--- OUTSIDE RECORDS SUMMARY | 2019-01-19 05:41 | XMS REPORT ---
Author Author Anay De Leon [facility] eClinicalWorks Address Unknown Phone Unavailable Care Team Providers Care Mechanical Tech Name Role Phone Anay De Leon CP Unavailable Allergies, Adverse Reactions, Alerts Substance Reaction Event Type sulfa Info Not Available Drug Allergy Problems Problem Type Condition Code Onset Dates Condition Status Assessment Coronary artery disease involving [place] coronary artery of [place] heart without angina pectoris I25.10 Active Assessment Raynaud's syndrome I73.00 Active Assessment Hypothyroid E03.9 Active Assessment Sciatica of right side M54.31 Active Assessment Migraines G43.909 Active Assessment Insomnia G47.00 Active Assessment COPD (chronic obstructive pulmonary disease) J44.9 Active Assessment Diabetes E11.9 Active Problem Migraines G43.909 Active Assessment Hyperlipidemia, unspecified E78.5 Active Problem Osteoarthritis M19.90 Active Assessment Essential hypertension I10 Active Problem COPD (chronic obstructive pulmonary disease) J44.9 Active Problem Diabetes E11.9 Active Problem Hypothyroid E03.9 Active Problem Vaginal odor N94.9 Active Problem Coronary artery disease involving [place] coronary artery of [place] heart without angina pectoris I25.10 Active Problem GERD (gastroesophageal reflux disease) K21.9 Active Problem Insomnia G47.00 Active Problem Carotid [...] Active Problem Essential hypertension I10 Active Problem Vitamin D deficiency E55.9 Active Medications Medication Code System Code Instructions Start Date End Date Status Dosage Ventolin HFA [facility] 87371156245 108 (90 Base) MCG/ACT Inhalation every 4 hrs Nov 05, 2015 Active 2 puffs Lumigan ND 09102426336 0.01 % Ophthalmic Once a day Active 1 drop into affected eye in the evening [facility] [address]-79 903033 UNIT/GM External prn Active 1 application to affected area Atorvastatin Calcium [facility] 01754990419 10 MG Orally Once a day Active 1 tablet Synthroid [facility] [address]-62 75 Orally daily Active 1 capsule Zolpidem Tartrate [facility] 59873601678 10 mg Orally qhs Active 1 tablet Losartan Potassium-HCTZ [facility] 58190135140 100-12.5 Active take one tablet by mouth daily Imitrex [facility] 62391523542 50 mg Orally at headache onset, march repeat in 2 hours, max 2 a day March 29, 2014 Active 1 tablet NIFEdipine ER [facility] 31588963742 30 mg Orally Once a day Oct 13, 2018 Active 1 tablet on an empty stomach Aspirin Adult Low Dose [facility] 92215466557 81 MG Orally Once a day Active 1 tablet Levothyroxine Sodium [facility] 44322291624 75 MCG Oral Active not defined Diclofenac Sodium [facility] 81433240973 75 mg Orally Once a day Dec 09, 2016 Nov 04, 2019 Active 1 tablet Metoprolol Succinate ER [facility] 61138939662 25 MG Orally Once a day Active 1 tablet Clopidogrel Bisulfate [facility] 41995827431 75 MG Orally Once a day Active 1 tablet MetFORMIN HCl ER [facility] 25769772002 500 mg Oral daily Active 1 tablet with evening meal Tramadol HCl [facility] 95654237747 50 mg Orally every 6-8 hrs prn pain January 11, 2019 Active 1 tablet Vital Signs Date/Time: Nov 09, 2018 BMI 29.29 Index Weight 150 lbs Height 60 in Cardiac Monitoring Heart Rate 78 /min Blood Pressure Diastolic 62 mm Hg Blood Pressure Systolic 104 mm Hg Results No Known Results Summary Purpose eClinicalWorks Submission
--- OUTSIDE RECORDS SUMMARY | 2019-01-19 05:41 | XMS REPORT ---
Author Author Bee Perales [facility] eClinicalWorks Address Unknown Phone Unavailable Care Team Providers Care Glove Presser Name Role Phone Bee Perales Unavailable Allergies, Adverse Reactions, Alerts Substance Reaction Event Type sulfa Info Not Available Drug Allergy Problems Problem Type Condition Code Onset Dates Condition Status Assessment Hypothyroid E03.9 Active Assessment Diabetes E11.9 Active Assessment Migraines G43.909 Active Assessment Osteoarthritis M19.90 Active Assessment COPD (chronic obstructive pulmonary disease) J44.9 Active Assessment Insomnia G47.00 Active Assessment GERD (gastroesophageal reflux disease) K21.9 Active Assessment Raynaud's syndrome I73.00 Active Assessment Vitamin D deficiency E55.9 Active Problem Migraines G43.909 Active Assessment Hyperlipidemia, unspecified E78.5 Active Problem Osteoarthritis M19.90 Active Assessment Essential hypertension I10 Active Problem COPD (chronic obstructive pulmonary disease) J44.9 Active Problem Diabetes E11.9 Active Problem Hypothyroid E03.9 Active Problem Vaginal odor N94.9 Active Problem 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 Problem GERD (gastroesophageal reflux disease) K21.9 Active Problem Insomnia G47.00 Active Problem Carotid stenosis I65.29 Active Problem BMI 30.0-30.9,adult Z68.30 Active Problem Obesity (BMI 30-39.9) E66.9 Active Problem Sciatica of right side M54.31 Active Problem Osteopenia M85.80 Active Assessment Sciatica of right side M54.31 Active Problem 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 Assessment 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 Problem Hyperlipidemia, unspecified E78.5 Active Assessment Carotid stenosis I65.29 Active Problem Tinea corporis B35.4 Active Assessment Osteopenia M85.80 Active Problem Elevated alkaline phosphatase level R74.8 Active Problem Raynaud's syndrome I73.00 Active Assessment Vaginal odor N94.9 Active Problem Peripheral vascular disease I73.9 Active Problem Essential hypertension I10 Active Problem Vitamin D deficiency E55.9 Active Medications Medication Code System Code Instructions Start Date End Date Status Dosage Tramadol HCl [facility] 32259402542 50 mg Orally every 6-8 hrs prn pain January 11, 2019 Active 1 tablet Diclofenac Sodium [facility] 88154491661 75 mg Orally Once a day Dec 09, 2016 April 11, 2019 Active 1 tablet MetFORMIN HCl ER [facility] 82574616832 500 mg Orally Once a day Nov 26, 2015 Active 1 tablet with evening meal Nystatin [facility] 43157785308 419188 UNIT/GM Externally Twice a day Nov 10, 2017 Nov 05, 2018 Active 1 application to affected area Atorvastatin Calcium [facility] 08565973170 10 MG Orally Once a day Active [address] [facility] [address]-52 75 Orally daily Active [address] [facility] 81820028878 50 mg Orally at headache onset, march repeat in 2 hours, max 2 a day March 29, 2014 Active 1 tablet Clopidogrel Bisulfate [facility] 29071533043 75 MG Orally Once a day Active [address] [facility] 16069670574 200 MCG Orally once a day Dec 09, 2016 Nov 05, 2018 Active 1 tablet with food NIFEdipine ER [facility] 91360477086 30 mg Orally Once a day Oct 13, 2018 Active 1 tablet on an empty stomach Losartan Potassium-HCTZ [facility] 51436286113 100-12.5 Active take one tablet by mouth daily Zolpidem Tartrate [facility] 39516561394 10 mg Orally qhs Active [address] [facility] 32954261012 100,000 Active APPLY TO AFFECTED AREA(S) TWO TIMES A DAY FOR 8 DAYS Metoprolol Succinate ER [facility] 37588626405 25 MG Orally Once a day Active [address] [facility] 17860042131 0.01 % Ophthalmic Once a day Active 1 drop into affected eye in the evening Pantoprazole Sodium [facility] 62535657134 40 mg Orally Once a day Nov 05, 2015 Active 1 tablet MetroGel-Vaginal [facility] 08516065404 0.75 % Vaginal Once a day Oct 13, 2018 Oct 18, 2018 Active 1 applicatorful at bedtime Ventolin HFA [facility] 44578601437 108 (90 Base) MCG/ACT Inhalation every 4 hrs Nov 05, 2015 Active 2 puffs Pravastatin Sodium [facility] 00556371149 20 Orally Once a day Active 1 tablet Aspirin Adult Low Dose [facility] 22395969799 81 MG Orally Once a day Active 1 tablet Vital Signs Date/Time: Oct 13, 2018 BMI 29.29 Index Weight 150 lbs Height 60 in Blood Pressure Diastolic 70 mm Hg Blood Pressure Systolic 108 mm Hg Results No Known Results Summary Purpose eClinicalWorks Submission
--- OUTSIDE RECORDS SUMMARY | 2019-01-19 05:41 | XMS REPORT ---
Author Author Anay De Leon [facility] eClinicalWorks Address Unknown Phone Unavailable Care Team Providers Care Risk Assessor Name Role Phone Anay De Leon CP Unavailable Allergies, Adverse Reactions, Alerts Substance Reaction Event Type sulfa Info Not Available Drug Allergy Encounters Encounter Location Date 3 MONTH FOLLOW UP [facility] February 25, 2016 NV-LABS [facility] Jun 17, 2015 RESULTS/GALLBLADDER CK [facility] Jun 21, 2015 Physical exam and FBW [facility] Nov 05, 2015 Problems Problem Type Condition ICD-9 Code Onset Dates Condition Status Problem Essential hypertension I10 Active Problem Vitamin D deficiency E55.9 Active Problem Sciatica M54.30 Active Problem Hypothyroid E03.9 Active Assessment Raynaud's syndrome I73.00 Active Problem COPD (chronic obstructive pulmonary disease) J44.9 Active Assessment Hypotension I95.9 Active Assessment Hypothyroid E03.9 Active Problem Diabetes E11.9 Active Problem Peripheral vascular disease I73.9 Active Problem Raynaud's syndrome I73.00 Active Problem Migraines G43.909 Active Problem Osteoarthritis M19.90 Active Problem Elevated alkaline phosphatase level R74.8 Active Problem Prediabetes R73.09 Active Assessment Essential hypertension I10 Active Assessment Right hip pain M25.551 Active Problem Degenerative arthritis M19.90 Active Problem GERD (gastroesophageal reflux disease) K21.9 Active Problem Insomnia G47.00 Active Problem 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 Assessment Diabetes E11.9 Active Problem Tinea corporis B35.4 Active Problem Hyperlipidemia, unspecified E78.5 Active Medications Medication Code System Code Instructions Start Date End Date Status Dosage Pravastatin Sodium [facility] [address]-07 20 mg Orally Once a day Active 1 tablet Pantoprazole [facility] [address]-54 40 mg Orally Once a day Nov 05, 2015 Active 1 tablet Clobetasol Prop Emollient Base [facility] [address]-59 0.05 % Externally to affected area qd prn Oct 30, 2016 Active small amount Zolpidem Tartrate [facility] [address]-67 10 mg Orally qhs Active 1 tablet Amitriptyline HCl [facility] [address]-40 10 mg Orally at bedtime Active 1 tablet Vitamin D (Ergocalciferol) [facility] 53656355291 50,000 Orally once per week Active 1 capsule Ventolin HFA [facility] [address]-23 108 (90 Base) MCG/ACT Inhalation every 4 hrs Nov 05, 2015 Active 2 puffs Arthrotec [facility] [address]-78 75-200 MG-MCG Orally once a day Oct 30, 2016 Active 1 tablet Tramadol HCl [facility] [address]-70 50 mg Orally every 6 hrs prn February 25, 2016 April 25, 2016 Active 1 tablet Metoprolol Succinate ER [facility] [address]-87 25 MG Orally Once a day Active 1 tablet MetFORMIN HCl ER [facility] [address]-07 500 mg Orally Once a day Nov 26, 2015 Active 1 tablet with evening meal Amlodipine Besylate [facility] [address]-22 2.5 MG Orally Once a day February 25, 2015 Inactive 1 tablet Losartan Potassium-HCTZ [facility] [address]-37 100-12.5 MG Orally Once a day Nov 26, 2015 Active 1/2 tablet Imitrex [facility] [address]-62 50 mg Orally at headache onset, may repeat in 2 hours, max 2 a day March 29, 2014 Active 1 tablet Social History Social History Element Qualifiers Date 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 cross stitching February 25, 2016 Ethnicity . Status , Is jamaican your primary language? Yes February 25, 2016 [...] February 25, 2016 Flu Vaccine: . Refuse, 2014February 25, 2016 Depression Screening: . negative February 25, 2016 Do you drink alcohol? . Status: No February 25, 2016 Vital Signs Date/Time: February 25, 2016 Weight 165 lbs Height 60 in Cardiac Monitoring Heart Rate 58 /min Blood Pressure Diastolic 70 mm Hg Blood Pressure Systolic 97 mm Hg Results Basic Metabolic Panel (7) Immunizations Vaccine Administration Date FLU 6 - 35 [facility] [id number] February 25, 2016 Summary Purpose eClinicalWorks Submission
--- OUTSIDE RECORDS SUMMARY | 2019-01-19 05:41 | XMS REPORT ---
Author Author Anay De Leon [facility] eClinicalWorks Address Unknown Phone Unavailable Care Team Providers Care Electronic Console Display Operator Name Role Phone Anay De Leon Unavailable Encounters Encounter Location Date 3 MONTH FOLLOW UP [facility] February 25, 2016 New Refill Request [facility] March 03, 2016 lab results and new rx [facility] March 06, 2016 NV-LABS [facility] Jun 17, 2015 RESULTS/GALLBLADDER CK [facility] Jun 21, 2015 Physical exam and FBW [facility] Nov 05, [...] Start Date End Date Status Dosage Synthroid [facility] [address]-07 25 MCG Orally Once a day March 06, 2016 Active 1 tablet Social History Social History Element Qualifiers Date 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 cross stitching February 25, 2016 Ethnicity . Status , Is yakut your primary language? Yes February 25, 2016 [...]
--- OUTSIDE RECORDS SUMMARY | 2019-01-19 05:41 | XMS REPORT ---
Author Author Anay De Leon [facility] eClinicalWorks Address Unknown Phone Unavailable Care Team Providers Care Glass Edger Name Role Phone Anay De Leon Unavailable Encounters Encounter Location Date 3 MONTH FOLLOW UP [facility] February 25, 2016 New Refill Request [facility] March 03, 2016 lab results and new rx [facility] March 06, 2016 3 MONTH FOLLOW UP [facility] May 14, 2016 NV-LABS [facility] Jun 17, 2015 RESULTS/GALLBLADDER CK [facility] Jun 21, 2015 Physical exam and FBW [facility] Nov 05, 2015 3 MONTH FOLLOW UP [facility] Aug 04, 2016 Test results [facility] [...] R74.8 Active Problem Prediabetes R73.09 Active Assessment Hypothyroid E03.9 Active Problem Degenerative arthritis M19.90 Active Problem GERD (gastroesophageal reflux disease) K21.9 Active Problem Insomnia G47.00 Active Problem 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 cross stitching Aug 04, 2016 Ethnicity . Status , Is ukrainian your primary language? Yes Aug 04, 2016 children . 2 Aug 04, 2016 Last Colonoscopy: . 2013Aug 04, 2016 Tobacco Use: . Are you a: never smoker Aug 04, 2016 Use of recreational / street drugs? . Answer: No Aug 04, 2016 Where or with whom do you live ? . lives alone in own home, sometimes with grandson Aug 04, 2016 Fall Risk: . none in the past year Aug 04, 2016 Marital Status: . Aug 04, 2016 Pneumoccocal Vaccine . Yes Aug 04, 2016 Caffeine intake? . Status: Yes, What type: Soft Drinks, 1 -2 can(s)/bottle(s) a day up to 4 daily Aug 04, 2016 Do you exercise? . Answer: Yes, Type: biking Aug 04, 2016 Flu Vaccine: . Refuse, 2014Aug 04, 2016 Depression Screening: . negative Aug 04, 2016 Do you drink alcohol? . Status: No Aug 04, 2016 Summary Purpose eClinicalWorks Submission
--- OUTSIDE RECORDS SUMMARY | 2019-01-19 05:41 | XMS REPORT ---
Author Author Lenora Gregory [facility] eClinicalWorks Address Unknown Phone Unavailable Care Team Providers Care Historic Sites Supervisor Name Role Phone Lenora Gregory CP Unavailable Allergies, Adverse Reactions, Alerts Substance Reaction Event Type sulfa Info Not Available Drug Allergy Encounters Encounter Location Date NV-LABS [facility] Jun 17, 2015 RESULTS/GALLBLADDER CK 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 Problem Tinea corporis 110.5 Active Problem Elevated alkaline phosphatase level 790.5 Active Problem Prediabetes 790.29 Active Assessment Elevated alkaline phosphatase level 790.5 Active Problem Hyperlipidemia 272.4 Active Problem HTN (hypertension) 401.9 Active Problem Migraine 346.90 Active Medications Medication Code System Code Instructions Start Date End Date Status Dosage Imitrex [facility] [address]-20 50 mg Orally at headache onset, march repeat in 2 hours, max 2 a day March 29, 2014 Active 1 tablet Vitamin D (Ergocalciferol) [facility] 84986638742 50,000 Orally once per week Active 1 capsule Pravastatin Sodium [facility] [address]-93 20 mg Orally Once a day Active 1 tablet Amitriptyline HCl [facility] [address]-36 10 mg Orally at bedtime Active 1 tablet Zolpidem Tartrate [facility] [address]-49 10 mg Orally qhs Active 1 tablet Arthrotec [facility] [address]-91 75-200 MG-MCG Orally once a day Dec 04, 2015 Active 1 tablet Tramadol HCl [facility] [address]-12 50 mg Orally every 6 hrs Jun 07, 2015 Jul 07, 2015 Active 1 tablet as needed Nexium [facility] [address]-30 40 mg Orally Once a day February 25, 2015 Active 1 capsule ProAir HFA [facility] [address]-32 108 (90 Base) MCG/ACT Inhalation every 4 hrs February 25, 2015 Active 2 puffs as needed Metoprolol Succinate ER [facility] [address]-87 25 MG Orally Once a day Active 1 tablet Amlodipine Besylate [facility] [address]-93 2.5 MG Orally Once a day February 25, 2015 Active 1 tablet Losartan Potassium-HCTZ [facility] [address]-01 100-12.5 Orally Once a day Active 1 tablet Social History Social History Element Qualifiers Date 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 cross stitching Jun 17, 2015 Ethnicity . Status , Is divehi your primary language? Yes Jun 17, 2015 children . 2 Jun 17, 2015 Depression Screening: . negative 11/12/14 Jun 17, 2015 Tobacco Use: . Are you a: never smoker Jun 17, 2015 Use of recreational / street drugs? . Answer: No Jun 17, 2015 Where or with whom do you live ? . lives alone in own home, sometimes with grandson Jun 17, 2015 Marital Status: . Jun 17, 2015 Caffeine intake? . Status: Yes, What type: Soft Drinks, 1 -2 can(s)/bottle(s) a day up to 4 daily Jun 17, 2015 Do you exercise? . Answer: Yes, Type: biking Jun 17, 2015 Fall Risk: . 1 in past year w/ injury Jun 17, 2015 Do you drink alcohol? . Status: No Jun 17, 2015 Results Comp. Metabolic Panel (14) A/G Ratio(-1.1-2.5 ) 2.0 Globulin, Total(-1.5-4.5 g/dL) 2.1 Alkaline Phosphatase, S(-39-117 IU/L) 161 Bilirubin, Total(-0.0-1.2 mg/dL) 0.3 Chloride, Serum(-97-108 mmol/L) 100 ALT (SGPT)(-0-32 IU/L) 12 Potassium, Serum(-3.5-5.2 mmol/L) 4.1 AST (SGOT)(-0-40 IU/L) 15 Sodium, Serum(-134-144 mmol/L) 138 BUN/Creatinine Ratio(-11-26 ) 20 eGFR If Africn Am(- >59 mL/min/1.73) 57 Calcium, Serum(-8.7-10.3 mg/dL) 9.1 Carbon Dioxide, Total(-18-29 mmol/L) 24 Albumin, Serum(-3.5-4.8 g/dL) 4.2 Protein, Total, Serum(-6.0-8.5 g/dL) 6.3 Glucose, Serum(-65-99 mg/dL) 106 BUN(-8-27 mg/dL) 21 Creatinine, Serum(-0.57-1.00 mg/dL) 1.07 eGFR If NonAfricn Am(- >59 mL/min/1.73) 50 Alk Phos Isoenzyme Bone Fraction:(-14-68 %) 50 Intestinal Frac.:(-0-18 %) 0 Liver Fraction:(-18-85 %) 50 Summary Purpose eClinicalWorks Submission
--- OUTSIDE RECORDS SUMMARY | 2019-01-19 05:41 | XMS REPORT ---
Author Author Anay De Leon [facility] eClinicalWorks Address Unknown Phone Unavailable Care Team Providers Care Multimedia Manager Name Role Phone Anay De Leon CP Unavailable Allergies, Adverse Reactions, Alerts Substance Reaction Event Type sulfa Info Not Available Drug Allergy Encounters Encounter Location Date [place]-LABS [facility] Jun 17, 2015 RESULTS/GALLBLADDER CK [facility] Jun 21, 2015 Physical exam and FBW [facility] Nov 05, 2015 Problems Problem Type Condition ICD-9 Code Onset Dates Condition Status Assessment GERD (gastroesophageal reflux disease) K21.9 Active Assessment Insomnia G47.00 Active Problem Degenerative arthritis M19.90 Active Assessment Osteoarthritis M19.90 Active Problem GERD (gastroesophageal reflux disease) K21.9 Active Assessment Tinea corporis B35.4 Active Problem 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 Problem Essential hypertension I10 Active Problem Hyperlipidemia, unspecified E78.5 Active Problem Migraines G43.909 Active Problem Osteoarthritis M19.90 Active Assessment Prediabetes R73.09 Active Assessment Migraines G43.909 Active Problem COPD (chronic obstructive pulmonary disease) J44.9 Active Assessment COPD (chronic obstructive pulmonary disease) J44.9 Active Problem Vitamin D deficiency E55.9 Active Problem Sciatica M54.30 Active Problem Peripheral vascular disease I73.9 Active Problem Raynaud's syndrome I73.00 Active Assessment Essential hypertension I10 Active Assessment Annual physical exam Z00.00 Active Assessment Peripheral vascular disease I73.9 Active Assessment Hyperlipidemia, unspecified E78.5 Active Problem Insomnia G47.00 Active Problem Tinea corporis B35.4 Active Problem Elevated alkaline phosphatase level R74.8 Active Problem Prediabetes R73.09 Active Medications Medication Code System Code Instructions Start Date End Date Status Dosage Imitrex [facility] [address]-63 50 mg Orally at headache onset, may repeat in 2 hours, max 2 a day March 29, 2014 Active 1 tablet Ventolin HFA [facility] [address]-04 108 (90 Base) MCG/ACT Inhalation every 4 hrs Nov 05, 2015 Active 2 puffs ProAir HFA [facility] [address]-53 108 (90 Base) MCG/ACT Inhalation every 4 hrs February 25, 2015 Inactive 2 puffs as needed Clobetasol Prop Emollient Base [facility] [address]-88 0.05 % Externally to affected area qd prn Oct 30, 2016 Active small amount Pravastatin Sodium [facility] [address]-18 20 mg Orally Once a day Active 1 tablet Pantoprazole Sodium [facility] [address]-54 40 mg Orally Once a day Nov 05, 2015 Active 1 tablet Nexium [facility] [address]-93 40 mg Orally Once a day February 25, 2015 Inactive 1 capsule Vitamin D (Ergocalciferol) [facility] 26156746202 50,000 Orally once per week Active 1 capsule Arthrotec [facility] [address]-26 75-200 MG-MCG Orally once a day Oct 30, 2016 Active 1 tablet Zolpidem Tartrate [facility] [address]-61 10 mg Orally qhs Active 1 tablet Amlodipine Besylate [facility] [address]-53 2.5 MG Orally Once a day February 25, 2015 Active 1 tablet Metoprolol Succinate ER [facility] [address]-78 25 MG Orally Once a day Active 1 tablet Amitriptyline HCl [facility] [address]-37 10 mg Orally at bedtime Active 1 tablet Clobetasol Prop Emollient Base [facility] [address]-18 0.05 % Externally Active Unknown Losartan Potassium-HCTZ [facility] [address]-95 100-12.5 Orally Once a day Active 1 tablet Social History Social History Element Qualifiers Date Reported Ethnicity . Status , Is malay your primary language? Yes Nov 06, 2015 hobbies/sports . cross stitching Nov 06, 2015 children . 2 Nov 06, 2015 Tobacco Use: . Are you a: never smoker Nov 06, 2015 Where or with whom do you live ? . lives alone in own home, sometimes with grandson Nov 06, 2015 Use of recreational / street drugs? . Answer: No Nov 06, 2015 Marital Status: . Nov 06, 2015 Caffeine intake? . Status: Yes, What type: Soft Drinks, 1 -2 can(s)/bottle(s) a day up to 4 daily Nov 06, 2015 Do you exercise? . Answer: Yes, Type: biking Nov 06, 2015 Do you drink alcohol? . 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
--- OUTSIDE RECORDS SUMMARY | 2019-01-19 05:41 | XMS REPORT ---
Author Author Bee Perales [facility] eClinicalWorks Address Unknown Phone Unavailable Care Team Providers Care Constitutional Law Professor Name Role Phone Bee Perales CP Unavailable Allergies No Known Allergies Problems Problem Type Condition Code Onset Dates Condition Status Problem Migraines G43.909 Active Problem COPD (chronic obstructive pulmonary disease) J44.9 Active Problem Osteoarthritis M19.90 Active Problem Sciatica of right side M54.31 Active Problem Obesity (BMI 30-39.9) E66.9 Active Problem Coronary artery disease involving [place] coronary artery of [place] heart without angina pectoris I25.10 Active Problem [...]
--- OUTSIDE RECORDS SUMMARY | 2019-01-19 05:41 | XMS REPORT ---
Author Author Anay De Leon [facility] eClinicalWorks Address Unknown Phone Unavailable Care Team Providers Care Printer'S Assistant Name Role Phone Anay De Leon CP Unavailable Allergies, Adverse Reactions, Alerts Substance Reaction Event Type sulfa Info Not Available Drug Allergy Encounters Encounter Location Date 3 MONTH FOLLOW UP [facility] February 25, 2016 New Refill Request [facility] March 03, 2016 lab results and new rx [facility] March 06, 2016 3 MONTH FOLLOW UP [facility] May 14, 2016 [place]-LABS [facility] Jun 17, 2015 RESULTS/GALLBLADDER CK [facility] Jun 21, 2015 Physical exam and FBW [facility] Nov 05, 2015 Problems Problem Type Condition ICD-9 Code Onset Dates Condition Status Assessment Shoulder pain M25.519 Active Problem 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 Assessment Laceration of scalp S01.01XA Active Problem Hyperlipidemia, unspecified E78.5 Active Assessment Hypothyroid E03.9 Active Problem Essential hypertension I10 Active Problem Vitamin D deficiency E55.9 Active Problem Sciatica M54.30 Active Problem Hypothyroid E03.9 Active Problem COPD (chronic obstructive pulmonary disease) J44.9 Active Assessment Vitamin D deficiency E55.9 Active Assessment Insomnia G47.00 Active Problem Diabetes E11.9 Active Assessment Prediabetes R73.09 Active Problem Peripheral vascular disease I73.9 Active Problem Raynaud's syndrome I73.00 Active Problem Migraines G43.909 Active Problem Osteoarthritis M19.90 Active Problem Elevated alkaline phosphatase level R74.8 Active Problem Prediabetes R73.09 Active Assessment Hyperlipidemia, unspecified E78.5 Active Assessment Essential hypertension I10 Active Problem Degenerative arthritis M19.90 Active Problem GERD (gastroesophageal reflux disease) K21.9 Active Problem Insomnia G47.00 Active Problem Tinea corporis B35.4 Active Medications Medication Code System Code Instructions Start Date End Date Status Dosage Vitamin D (Ergocalciferol) [facility] 99603258887 50,000 Orally once per week Aug 30, 2016 Active 1 capsule Amitriptyline HCl [facility] [address]-73 10 mg Orally at bedtime Active 1 tablet Zolpidem Tartrate [facility] [address]-05 10 mg Orally qhs Active 1 tablet Pravastatin Sodium [facility] [address]-15 20 mg Orally Once a day Active 1 tablet Metoprolol Succinate ER [facility] [address]-89 25 MG Orally Once a day Active 1 tablet Imitrex [facility] [address]-97 50 mg Orally at headache onset, march repeat in 2 hours, max 2 a day March 29, 2014 Active 1 tablet Losartan Potassium-HCTZ [facility] [address]-46 100-12.5 MG Orally Once a day Nov 26, 2015 Active 1/2 tablet Ventolin HFA [facility] [address]-35 108 (90 Base) MCG/ACT Inhalation every 4 hrs Nov 05, 2015 Active 2 puffs Pantoprazole Sodium [facility] [address]-13 40 mg Orally Once a day Nov 05, 2015 Active 1 tablet Arthrotec [facility] [address]-78 75-200 MG-MCG Orally once a day Oct 30, 2016 Active 1 tablet Clobetasol Prop Emollient Base [facility] [address]-11 0.05 % Externally to affected area qd prn Oct 30, 2016 Active small amount MetFORMIN HCl ER [facility] [address]-93 500 mg Orally Once a day Nov 26, 2015 Active 1 tablet with evening meal Synthroid [facility] [address]-45 25 MCG Orally Once a day March 06, 2016 Active 1 tablet Social History Social History Element Qualifiers Date 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 cross stitching May 14, 2016 Ethnicity . Status , Is yakut your primary language? Yes May 14, 2016 children . 2 May 14, 2016 Last Colonoscopy: . 2013May 14, 2016 Tobacco Use: . Are you a: never smoker May 14, 2016 Use of recreational / street drugs? . Answer: No May 14, 2016 Where or with whom do you live ? . lives alone in own home, sometimes with grandson May 14, 2016 Fall Risk: . none in the past year May 14, 2016 Marital Status: . May 14, 2016 Pneumoccocal Vaccine . Yes May 14, 2016 Caffeine intake? . Status: Yes, What type: Soft Drinks, 1 -2 can(s)/bottle(s) a day up to 4 daily May 14, 2016 Do you exercise? . Answer: Yes, Type: biking May 14, 2016 Flu Vaccine: . Refuse, 2014May 14, 2016 Depression Screening: . negative May 14, 2016 Do you drink alcohol? . Status: No May 14, 2016 Vital Signs Date/Time: May 14, 2016 Weight 157 lbs Height 60 in Cardiac Monitoring Heart Rate 60 /min Blood Pressure Diastolic 80 mm Hg Blood Pressure Systolic 128 mm Hg Summary Purpose eClinicalWorks Submission
--- OUTSIDE RECORDS SUMMARY | 2019-01-19 05:41 | XMS REPORT ---
Author Author Anay De Leon [facility] eClinicalWorks Address Unknown Phone Unavailable Care Team Providers Care Data Support Analyst Name Role Phone Anay De Leon CP Unavailable Allergies, Adverse Reactions, Alerts Substance Reaction Event Type sulfa Info Not Available Drug Allergy Encounters Encounter Location Date 3 MONTH FOLLOW UP [facility] February 25, 2016 New Refill Request [facility] March 03, 2016 lab results and new rx [facility] March 06, 2016 3 MONTH FOLLOW UP [facility] May 14, 2016 [place]-LABS [facility] Jun 17, 2015 RESULTS/GALLBLADDER CK [facility] Jun 21, 2015 Physical exam and FBW [facility] Nov 05, 2015 3 MONTH FOLLOW UP [facility] Aug 04, 2016 Problems Problem Type Condition ICD-9 Code Onset Dates Condition Status Problem 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 Assessment Shoulder pain M25.519 Active Problem Hyperlipidemia, unspecified E78.5 Active Assessment Insomnia G47.00 Active Problem Essential hypertension I10 Active Problem Vitamin D deficiency E55.9 Active Problem Sciatica M54.30 Active Problem Hypothyroid E03.9 Active Problem COPD (chronic obstructive pulmonary disease) J44.9 Active Assessment Prediabetes R73.09 Active Assessment Hypothyroid E03.9 Active Problem Diabetes E11.9 Active Assessment Needs flu shot Z23 Active Problem Peripheral vascular disease I73.9 Active [...] Date End Date Status Dosage Synthroid [facility] [address]-97 25 MCG Orally Once a day March 06, 2016 Active 1 tablet Pravastatin Sodium [facility] [address]-46 20 mg Orally Once a day Active 1 tablet Zolpidem Tartrate [facility] [address]-33 10 MG Orally qhs Active 1 tablet Clobetasol Prop Emollient Base [facility] [address]-14 0.05 % Externally to affected area qd prn Oct 30, 2016 Active small amount Vitamin D (Ergocalciferol) [facility] 16669635431 50,000 Orally once per week Aug 30, 2016 Active 1 capsule Losartan Potassium-HCTZ [facility] [address]-15 100-12.5 MG Orally Once a day Nov 26, 2015 Active 1/2 tablet Imitrex [facility] [address]-75 50 mg Orally at headache onset, march repeat in 2 hours, max 2 a day March 29, 2014 Active 1 tablet Amitriptyline HCl [facility] [address]-26 10 mg Orally at bedtime Active 1 tablet Pantoprazole Sodium [facility] [address]-04 40 mg Orally Once a day Nov 05, 2015 Active 1 tablet Arthrotec [facility] [address]-71 75-200 MG-MCG Orally once a day Oct 30, 2016 Active 1 tablet Metoprolol Succinate ER [facility] [address]-64 25 MG Orally Once a day Active 1 tablet MetFORMIN HCl ER [facility] [address]-76 500 mg Orally Once a day Nov 26, 2015 Active 1 tablet with evening meal Nystatin [facility] 97153361593 100,000 Externally Twice a day Active as directed Ventolin HFA [facility] [address]-63 108 (90 Base) MCG/ACT Inhalation every 4 hrs Nov 05, 2015 Active 2 puffs Social History Social History Element Qualifiers Date 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 cross stitching Aug 04, 2016 Ethnicity . Status , Is libyan your primary language? Yes Aug 04, 2016 [...] alcohol? . Status: No Aug 04, 2016 Vital Signs Date/Time: Aug 04, 2016 Weight 155 lbs Height 60 in Cardiac Monitoring Heart Rate 55 /min Blood Pressure Diastolic 72 mm Hg Blood Pressure Systolic 118 mm Hg Immunizations Vaccine Administration Date [place] [address] [place] [address] Aug 04, 2016 Summary Purpose eClinicalWorks Submission
--- OUTSIDE RECORDS SUMMARY | 2019-01-19 05:41 | XMS REPORT ---
Author Author Lenora Gregory [facility] eClinicalWorks Address Unknown Phone Unavailable Care Team Providers Care Cartoon Artist Name Role Phone Lenora Gregory CP Unavailable Allergies, Adverse Reactions, Alerts Substance Reaction Event Type sulfa Info Not Available Drug Allergy Encounters Encounter Location Date [place]-LABS [facility] Jun 17, 2015 RESULTS/GALLBLADDER CK [facility] Jun 21, 2015 Problems Problem Type Condition ICD-9 Code Onset Dates Condition Status Problem Sciatica 724.3 Active Problem Tinea corporis 110.5 Active Problem Insomnia (Nonorganic sleep disorder, unspecified) 307.40 Active Problem Peripheral artery disease 443.9 Active Problem Raynauds disease 443.0 Active Problem CREST syndrome 710.1 Active Problem Prediabetes 790.29 Active Problem 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 Problem Vitamin d deficiency 268.9 Active Problem Elevated alkaline phosphatase level 790.5 Active Problem Hyperlipidemia 272.4 Active Problem HTN (hypertension) 401.9 Active Assessment Elevated alkaline phosphatase level 790.5 Active Problem Migraine 346.90 Active Assessment Right-sided back pain 724.5 Active Problem GERD (gastroesophageal reflux disease) 530.81 Active Medications Medication Code System Code Instructions Start Date End Date Status Dosage Imitrex [facility] [address]-83 50 mg Orally at headache onset, march repeat in 2 hours, max 2 a day March 29, 2014 Active 1 tablet Tramadol HCl [facility] [address]-88 50 mg Orally every 6 hrs Jun 07, 2015 Jul 07, 2015 Active 1 tablet as needed Metoprolol Succinate ER [facility] [address]-74 25 MG Orally Once a day Active 1 tablet Pravastatin Sodium [facility] [address]-22 20 mg Orally Once a day Active 1 tablet Amlodipine Besylate [facility] [address]-78 2.5 MG Orally Once a day February 25, 2015 Active 1 tablet Vitamin D (Ergocalciferol) [facility] 60791657388 50,000 Orally once per week Active 1 capsule Arthrotec [facility] [address]-93 75-200 MG-MCG Orally once a day Dec 04, 2015 Active 1 tablet ProAir HFA [facility] [address]-62 108 (90 Base) MCG/ACT Inhalation every 4 hrs February 25, 2015 Active 2 puffs as needed Amitriptyline HCl [facility] [address]-12 10 mg Orally at bedtime Active 1 tablet Nexium [facility] [address]-33 40 mg Orally Once a day February 25, 2015 Active 1 capsule Zolpidem Tartrate [facility] [address]-52 10 mg Orally qhs Active 1 tablet Losartan Potassium-HCTZ [facility] [address]-54 100-12.5 Orally Once a day Active 1 tablet Social History Social History Element Qualifiers Date 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 cross stitching Jun 21, 2015 Ethnicity . Status , Is romansh your primary language? Yes Jun 21, 2015 children . 2 Jun 21, 2015 Depression Screening: . negative 11/12/14 Jun 21, 2015 Tobacco Use: . Are you a: never smoker Jun 21, 2015 Use of recreational / street drugs? . Answer: No Jun 21, 2015 Where or with whom do you live ? . lives alone in own home, sometimes with grandson Jun 21, 2015 Marital Status: . Jun 21, 2015 Caffeine intake? . Status: Yes, What type: Soft Drinks, 1 -2 can(s)/bottle(s) a day up to 4 daily Jun 21, 2015 Do you exercise? . Answer: Yes, Type: biking Jun 21, 2015 Fall Risk: . 1 in past year w/ injury Jun 21, 2015 Do you drink alcohol? . Status: No Jun 21, 2015 Vital Signs Date/Time: Jun 21, 2015 Weight 165 lbs Height 60 in Temperature 98.1 F Cardiac Monitoring Heart Rate 77 /min Blood Pressure Diastolic 62 mm Hg Blood Pressure Systolic 102 mm Hg Summary Purpose eClinicalWorks Submission
--- OUTSIDE RECORDS SUMMARY | 2019-01-19 05:42 | XMS REPORT ---
Author Author Anay De Leon [facility] eClinicalWorks Address Unknown Phone Unavailable Care Team Providers Care Laborer Hoisting Name Role Phone Anay De Leon CP Unavailable Allergies, Adverse Reactions, Alerts Substance Reaction Event Type sulfa Info Not Available Drug Allergy Problems Problem Type Condition Code Onset Dates Condition Status Assessment COPD (chronic obstructive pulmonary disease) J44.9 Active Assessment Degenerative arthritis M19.90 Active Assessment GERD (gastroesophageal reflux disease) K21.9 Active Assessment Migraines G43.909 Active Assessment Insomnia G47.00 Active Assessment Raynaud's syndrome I73.00 Active Assessment Sciatica M54.30 Active Problem Vitamin D deficiency E55.9 Active Assessment Diabetes E11.9 Active Problem Raynaud's syndrome I73.00 Active Assessment Hypothyroid E03.9 Active Problem Peripheral vascular disease I73.9 Active Problem Migraines G43.909 Active Problem Osteoarthritis M19.90 Active Problem BMI 30.0-30.9,adult Z68.30 Active Problem Obesity (BMI 30-39.9) E66.9 Active Problem Elevated alkaline phosphatase level R74.8 Active Assessment Essential hypertension I10 Active Problem Osteopenia M85.80 Active Assessment Hyperlipidemia, unspecified E78.5 Active Problem Hypothyroid E03.9 Active Problem COPD [...] Date End Date Status Dosage Pravastatin Sodium [facility] NAMED [facility] 38080402671 20 Active TAKE ONE TABLET BY MOUTH DAILY Losartan Potassium-HCTZ FORMERLY NAMED [facility] [address]-18 100-12.5 MG Orally Once a day Nov 26, 2015 Active 1/2 tablet Imitrex FORMER[facility] NAMED [facility] [address]-67 50 MG Orally at headache onset, march repeat in 2 hours, max 2 a day March 29, 2014 Active 1 tablet Amlodipine Besylate FOR[facility] NAMED [facility] [address]-45 2.5 MG Orally Once a day Inactive 1 tablet Lumigan FORMER[facility] NAMED [facility] [address]-96 0.01 % Ophthalmic Once a day Active 1 drop into affected eye in the evening Misoprostol FORMER[facility] NAMED [facility] [address]-66 200 MCG Orally once a day Dec 09, 2016 Dec 04, 2017 Active 1 tablet with food Nystatin FOR[facility] NAMED [facility] 88457163930 100,000 Externally Twice a day Active as directed Ventolin HFA FORMERLY NAMED [facility] 10719800388 90 Active INHALE TWO PUFFS BY MOUTH EVERY 4 HOURS MetFORMIN HCl ER FORMER[facility] NAMED [facility] [address]-50 500 MG Orally Once a day Nov 26, 2015 Active 1 tablet with evening meal Tramadol HCl [facility]MER[facility] NAMED [facility] [address]-01 50 MG Orally every 6 hrs prn pain Aug 02, 2017 Active 1 tablet Metoprolol Succinate ER [facility] NAMED [facility] [address]-21 25 MG Orally Once a day Active 1 tablet Diclofenac Sodium FORMERLY NAMED [facility] [address]-09 75 MG Orally Once a day Dec 09, 2016 Dec 04, 2017 Active 1 tablet Zolpidem Tartrate FORMER[facility] NAMED [facility] [address]-47 10 MG Orally qhs Active 1 tablet Synthroid FORMER[facility] NAMED [facility] [address]-42 50 MCG Orally Once a day Aug 26, 2016 Active 1 tablet Ventolin HFA [facility]MER[facility] NAMED [facility] [address]-52 108 (90 Base) MCG/ACT Inhalation every 4 hrs Nov 05, 2015 Active 2 puffs Pantoprazole Sodium FORMER[facility] NAMED [facility] [address]-85 40 mg Orally Once a day Nov 05, 2015 Active 1 tablet Amitriptyline HCl [facility] NAMED [facility] 23441635590 10 Orally qhs prn Active 1 tablet Vital Signs Date/Time: February 03, 2017 BMI 30.66 Index Weight 157 lbs Height 60 in Cardiac Monitoring Heart Rate 88 /min Blood Pressure Diastolic 72 mm Hg Blood Pressure Systolic 108 mm Hg Results No Known Results Summary Purpose eClinicalWorks Submission
--- OUTSIDE RECORDS SUMMARY | 2019-01-19 05:42 | XMS REPORT ---
Author Author [facility] Address Unknown Phone Unavailable Care Team Providers Care Chemistry Technical Officer Name Role Phone ADENIKE MELENDEZ Unavailable Unavailable Problems This patient has no known problems. Allergies, Adverse Reactions, Alerts This patient has no known allergies or adverse reactions. Medications This patient has no known medications. Results Test Description Test Time Test Comments Text Results Atomic Results Result Comments CHEST 2 VIEWS 2019-01-18 12:34:00 [place] [id number] Patient Name: MOODY LANE MR #: [id number] : 1935 Age/Sex: 83/F Req #: [id number] Adm Physician: Ordered by: ADENIKE MELENDEZ MD Report #: [id number] Location: OR Room/Bed: Procedure: [id number] DX/CHEST 2 VIEWS Exam Date: 01/18/19 Exam Time: 1205 REPORT STATUS: Signed EXAMINATION: CHEST 2 VIEWS INDICATION: None. COMPARISON: None FINDINGS: TUBES and LINES: None. LUNGS: No evidence of pneumonia or pulmonary edema. High density nodular opacities in the left lower medial hemithorax may represent calcified granulomas or overlying costochondral junctions. PLEURA: No pleural effusion or pneumothorax. HEART AND MEDIASTINUM: The cardiac silhouette is unremarkable. Prominent central pulmonary arteries. Atherosclerotic calcifications of the aortic arch. There is eventration of the right hemidiaphragm. BONES AND SOFT TISSUES: No acute osseous abnormality. UPPER ABDOMEN: No free air under the diaphragm. IMPRESSION: No acute radiographic abnormality. Prominent central pulmonary arteries, which may reflect pulmonary arterial hypertension. Signed by: Dr. Maribell Stanley MD on 01/18/2019 12:38 PM Dictated By: MARIBELL STANLEY MD [id number] Transcribed By: BRUNO on 01/18/19 1238 COPY TO: ADENIKE MELENDEZ MD
[2019-01-19 08:13] VITALS: BP 116/53
--- NOTE | 2019-01-19 18:28 | Operative Report ---
DATE OF PROCEDURE: 01/19/2019 SURGEON: Robert Ingram MD PREOPERATIVE DIAGNOSIS: Lymphangitis, acute, right index finger. POSTOPERATIVE DIAGNOSIS: Septic arthritis right index finger, distal interphalangeal joint. PROCEDURE: Arthrotomy with excision of osteophyte and drainage of DIP joint. ANESTHESIA: General. HISTORY: The patient is an 83-year-old female, who presented to the office approximately 48 hours ago. She had an infection, which was looked to be superficial in nature. 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 She does not recall any antecedent event, which preceded the onset of the infection. She was initially started on p.o. Bactrim and the infection continued to worsen over the next 24 hours. She now presents for definitive incision and drainage of right index finger. Risks, benefits, and alternatives of the treatment were discussed with the patient. She is prepared to undergo the procedure as outlined. DESCRIPTION OF PROCEDURE: The patient was marked preoperatively in the holding area. She was brought to the operating theater and after the induction of adequate general anesthesia, she was prepped and draped in a supine position and a time-out was performed. The right upper extremity was elevated for 4 minutes and then the tourniquet was inflated to a pressure of 250 mmHg. The incision was made directly over the DIP joint in a curvilinear fashion and severe milliliters of purulent exudate was encountered and this was cultured both aerobically and anaerobically. It was clear that the infection extends to the DIP joint, which was markedly deformed. The extensor tendon was retracted and the joint was irrigated until there was no more purulent exudate noted. There was a large osteophyte overlying the area and using a rongeur this was removed. The wound was irrigated once again and then 0.25 inch packing was placed into the joint and then the superficial tissues were closed around it utilizing 5-0 nylon in an interrupted fashion. Bactroban ointment, Xeroform gauze and a sterile dressing were applied. The tourniquet was deflated. All the fingers pinked up nicely and the patient returned to recovery room in satisfactory condition and discharged with postoperative instruction sheet as well as a followup appointment. MD CHAS Valerio/MODL /[id number]
== END | disposition home or self-care (01) ==
LOC: OR 05:10
PROVIDERS: ATTEND Plastic Surgery
DX: M00.9 Pyogenic arthritis, unspecified (principal); I10 Essential (primary) hypertension; M19.90 Unspecified osteoarthritis, unspecified site; F41.9 Anxiety disorder, unspecified; K58.9 Irritable bowel syndrome, unspecified; K21.9 Gastro-esophageal reflux disease without esophagitis; I44.0 Atrioventricular block, first degree; Z01.810 Encounter for preprocedural cardiovascular examination; Z01.818 Encounter for other preprocedural examination; Z79.02 Long term (current) use of antithrombotics/antiplatelets; Z86.73 Personal history of transient ischemic attack (TIA), and cerebral infarction without residual deficits
CPT/HCPCS: 26080; 26210; 36415; 71046; 80048; 85025; 87071; 87075; 87186; 87205; 93005; J0690; J2001; J2370; J2405; J2704